=== PATIENT | female | born 2000 | race African-American/Black ===

== ENCOUNTER 2020-07-08 07:29 | Emergency (ER) | payer OTHER ==
[~2020-07-08] VITALS: Ht 162.6 cm; Wt 72.3 kg
[2020-07-08 08:04] VITALS: BP 122/84
[2020-07-08] MEDS ORDERED: LORazepam 2 MG TAB PO PRN (08:10)
== END 2020-07-08 09:58 | disposition home or self-care (01) ==
LOC: EDBD 07:29 → M ED 07:29
DX: F43.20 Adjustment disorder, unspecified (principal); Z77.098 Contact with and (suspected) exposure to other hazardous, chiefly nonmedicinal, chemicals

== ENCOUNTER → 2020-08-20 | Outpatient (REF) | payer OTHER ==
[2020-08-20 19:25] LABS: CHLAMYDIA DNA AMPLIFICATION NEGATIVE (NEGATIVE); GC DNA AMPLIFICATION NEGATIVE (NEGATIVE)
[2020-08-21 10:17] LABS: APPEARANCE, URINE CLEAR (CLEAR); BACTERIA, URINE AUTO NEGATIVE (NEGATIVE); BILIRUBIN, URINE AUTO NEGATIVE (NEGATIVE); BLOOD, URINE BLOOD 1+ (NEGATIVE); COLOR, URINE YELLOW (YELLOW); GLUCOSE, URINE (UA) AUTO NEGATIVE (NEGATIVE); KETONE, URINE AUTO TRACE mg/dL (NEGATIVE); LEUKOCYTE ESTERASE, URINE AUTO TRACE (NEGATIVE); NITRITE, URINE AUTO NEGATIVE (NEGATIVE); PROTEIN, URINE AUTO NEGATIVE (NEGATIVE); RBC, URINE AUTO 0 /HPF (0-3); SPECIFIC GRAVITY URINE AUTO 1.012 (1.002-1.035); SQUAMOUS EPITHELIAL CELL UR AU 2 /HPF (0-6); UROBILINOGEN, URINE AUTO 0.2 mg/dL (0.0-2.0); WBC, URINE AUTO 1 /HPF (0-3)
== END ==
LOC: M LAB REF 16:24
PROVIDERS: ATTEND Physician Assistant Medical
DX: N89.8 Other specified noninflammatory disorders of vagina (principal)

== ENCOUNTER 2020-11-20 20:35 | Inpatient (IN) | payer OTHER ==
[~2020-11-20] VITALS: Ht 162.6 cm; Wt 67.4 kg
[2020-11-20 22:19] LABS: HEMATOCRIT 39.2 % (36.0-47.0); HEMOGLOBIN 13.8 g/dl (12.0-15.5); MEAN CORPUSCULAR HEMOGLOBIN 31.6 pg (27.0-33.0); MEAN CORPUSCULAR HGB CONC 35.2 g/dl (32.0-36.5); MEAN CORPUSCULAR VOLUME 89.7 fl (80.0-96.0); PLATELET COUNT, AUTOMATED 196 10^3/uL (150-450); RED BLOOD COUNT 4.37 10^6/uL (4.00-5.40)
[2020-11-20 22:54] LABS: HCG, SERUM QUALITATIVE NEGATIVE (NEGATIVE)
[2020-11-20 23:01] LABS: AMPHETAMINES LEVEL URINE NEGATIVE (NEGATIVE); BARBITURATES URINE NEGATIVE (NEGATIVE); BENZODIAZEPINES URINE NEGATIVE (NEGATIVE); CANNABINOIDS URINE NEGATIVE (NEGATIVE); COCAINE METABOLITE URINE NEGATIVE (NEGATIVE); METHADONE URINE NEGATIVE (NEGATIVE); OPIATES URINE NEGATIVE (NEGATIVE); PHENCYCLIDINE URINE NEGATIVE (NEGATIVE)
[2020-11-20 23:11] LABS: ACETAMINOPHEN LEVEL < 2.0 UG/ML (10.0-30.0); ALBUMIN 4.2 GM/DL (3.2-5.2); ALT/SGPT 21 U/L (12-78); BILIRUBIN,DIRECT 0.3 MG/DL (0.0-0.2); BLOOD UREA NITROGEN 10 MG/DL (7-18); CALCIUM LEVEL 9.5 MG/DL (8.5-10.1); CARBON DIOXIDE LEVEL 25 MEQ/L (21-32); CHLORIDE LEVEL 106 MEQ/L (98-107); CREATININE FOR GFR 0.92 MG/DL (0.55-1.30); ETHYL ALCOHOL (ETHANOL) < 0.003 % (0.000-0.010); GLOMERULAR FILTRATION RATE > 60.0 (>60); GLUCOSE, FASTING 91 MG/DL (70-100); POTASSIUM SERUM 4.4 MEQ/L (3.5-5.1); SALICYLATE LEVEL < 1.7 MG/DL (5.0-30.0); SODIUM LEVEL 138 MEQ/L (136-145); TOTAL PROTEIN 8.1 GM/DL (6.4-8.2)
[2020-11-21 05:51] LABS: RSV AMPLIFICATION NEGATIVE (NEGATIVE)
[2020-11-21] MEDS ORDERED: HOME MED LIST COMPLETE! XX SCH (10:05)
[2020-11-21] MEDS ORDERED: MOM 30ML SUSPENSION UDC PO PRN (11:25)
[2020-11-21] MEDS ORDERED: LORazepam 1 MG TAB PO PRN (11:25)
[2020-11-21] MEDS ORDERED: MAALOX 30 ML SUSP *UDC PO PRN (11:25)
[2020-11-21 12:25] VITALS: BP 120/78
[2020-11-22 06:39] VITALS: BP 145/65
[2020-11-22] MEDS ORDERED: INFLUENZA QUADRIVALENT PF VACCINE 0.5ML SYRINGE IM ONE (09:00)
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
[2020-11-22 19:05] VITALS: BP 133/84
[2020-11-22] MEDS: traZODone 50 MG TAB PO PRN (21:20)
[2020-11-23 06:45] VITALS: BP 95/54
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
[2020-11-23 18:29] VITALS: BP 110/76
[2020-11-24] MEDS: ACETAMINOPHEN TAB 650MG DOSE (2X325MG) PO PRN ×2 (00:01→07:51)
[2020-11-24 06:00] VITALS: BP 112/68
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
[2020-11-24 19:14] VITALS: BP 145/85
[2020-11-25] MEDS: ACETAMINOPHEN TAB 650MG DOSE (2X325MG) PO PRN ×2 (00:06→20:30)
--- NOTE | 2020-11-25 10:12 | CR.PDOC ---
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 CODE STATUS: Full code PAST MEDICAL HISTORY: No past medical history Per medical record past psychiatric history of ADD, major depressive disorder, borderline personality PAST SURGICAL HISTORY: x1 SOCIAL HISTORY: She reports that she "vapes all day". She does not smoke tobacco cigarettes on occasion. She reports that she used to do cannabis and did acid at one point in the past, but it has been over 1 year since her most recent use. FAMILY HISTORY: Mother has type 1 diabetes Father has schizophrenia REVIEW OF SYSTEMS: She reports that she is feeling perfectly healthy, did not have any illness prior to her admission. The remainder of her review of systems is negative. PHYSICAL EXAMINATION: General: Awake, alert, oriented x3. She is actually quite talkative Respiratory: Clear to auscultation bilaterally with no wheezes, rales, or rhonchi. Cardiovascular: Regular rate and rhythm, with no rubs, gallops, or murmur. ASSESSMENT/PLAN: Psychiatric issues Suicidal ideations -Per management from the psychiatric team She does not have any other acute or chronic medical issues at this time. She reports that she typically does not take any home medications. Please consult our service again if anything arises. Thank you so very much. Vital Signs/I&O Vital Signs Date Time Temp Pulse Resp B/P (MAP) Pulse Ox O2 Delivery O2 Flow Rate FiO2 11/24/20 19:14 98.5 74 16 145/85 (105) 11/24/20 06:00 99 11/23/20 06:45 Room Air Allergies Coded Allergies: No Known Drug Allergies (Verified Allergy, Unknown, 07/08/20) Home Medications Unable to Obtain Active Prescriptions or Reported Meds VEE BAEZA DO Nov 25, 2020 10:12
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
[2020-11-25 18:56] VITALS: BP 108/52
[2020-11-25] MEDS: traZODone 50 MG TAB PO PRN (20:29)
[2020-11-26 06:23] VITALS: BP 103/58
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
[2020-11-26 16:30] VITALS: BP 127/77
[2020-11-26] MEDS: traZODone 50 MG TAB PO PRN (21:03)
[2020-11-26] MEDS: ACETAMINOPHEN TAB 650MG DOSE (2X325MG) PO PRN (21:04)
[2020-11-27 05:44] VITALS: BP 98/69
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
[2020-11-27 16:15] VITALS: BP 121/58
[2020-11-27] MEDS: ACETAMINOPHEN TAB 650MG DOSE (2X325MG) PO PRN (17:59)
[2020-11-27] MEDS: traZODone 50 MG TAB PO PRN (20:18)
[2020-11-27] MEDS ORDERED: SERTRALINE HCL 25 MG TABLET PO ONE (21:00)
[2020-11-28 06:40] VITALS: BP 112/56
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
[2020-11-28 16:25] VITALS: BP 120/78
[2020-11-28] MEDS: SERTRALINE HCL 50 MG TAB PO SCH (20:21)
[2020-11-28] MEDS: traZODone 50 MG TAB PO PRN (20:21)
[2020-11-28] MEDS: ACETAMINOPHEN TAB 650MG DOSE (2X325MG) PO PRN (20:21)
[2020-11-29 07:15] VITALS: BP 139/70
[2020-11-29 16:00] VITALS: BP 112/56
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
[2020-11-29] MEDS: traZODone 50 MG TAB PO PRN (20:12)
[2020-11-29] MEDS: SERTRALINE HCL 50 MG TAB PO SCH (20:12)
[2020-11-29] MEDS: ACETAMINOPHEN TAB 650MG DOSE (2X325MG) PO PRN (20:13)
[2020-11-30 06:25] VITALS: BP 118/59
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
[2020-11-30] MEDS: ACETAMINOPHEN TAB 650MG DOSE (2X325MG) PO PRN ×2 (13:09→19:25)
[2020-11-30 16:18] VITALS: BP 119/77
[2020-11-30] MEDS: traZODone 50 MG TAB PO PRN (20:36)
[2020-11-30] MEDS: SERTRALINE HCL 50 MG TAB PO SCH (20:36)
[2020-12-01 06:23] VITALS: BP 124/60
[2020-12-01] MEDS: ACETAMINOPHEN TAB 650MG DOSE (2X325MG) PO PRN (13:39)
[2020-12-01 16:35] VITALS: BP 104/58
[2020-12-01] MEDS: SERTRALINE HCL 50 MG TAB PO SCH (19:51)
[2020-12-01] MEDS: traZODone 50 MG TAB PO PRN (21:12)
[2020-12-02 06:00] VITALS: BP 102/72
[2020-12-02 16:49] VITALS: BP 111/78
[2020-12-02] MEDS: traZODone 50 MG TAB PO PRN (21:06)
[2020-12-02] MEDS: SERTRALINE HCL 50 MG TAB PO SCH (21:06)
[2020-12-03 07:15] VITALS: BP 90/56
[2020-12-03] MEDS ORDERED: hydrOXYzine 50 MG TAB PO PRN (08:15)
[2020-12-03] MEDS ORDERED: HYDR50TA70 PO (08:32)
[2020-12-03] MEDS ORDERED: SERT50TA29 PO (08:32)
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
[2020-12-03 17:51] VITALS: BP 114/71
[2020-12-03] MEDS: SERTRALINE HCL 50 MG TAB PO SCH (20:25)
[2020-12-04 06:00] VITALS: BP 118/60
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
== END 2020-12-04 12:15 | disposition home or self-care (01) | DRG 880 ==
LOC: M ED 20:35 → M ED INP 11-21 11:21 → M PSY 11-21 12:30
PROVIDERS: ADMIT Student in an Organized Health Care Education/Training Program; ATTEND Psychiatry & Neurology Psychiatry
DX: F43.0 Acute stress reaction (principal); R45.851 Suicidal ideations; F98.8 Other specified behavioral and emotional disorders with onset usually occurring in childhood and adolescence; F60.3 Borderline personality disorder; Z91.410 Personal history of adult physical and sexual abuse; F17.290 Nicotine dependence, other tobacco product, uncomplicated; Z56.4 Discord with boss and workmates; Z63.8 Other specified problems related to primary support group

== ENCOUNTER 2020-12-09 12:55 | Inpatient (IN) | payer OTHER ==
[~2020-12-09] VITALS: Ht 162.6 cm; Wt 66.1 kg
[~2020-12-09 12:55] MED LIST: HYDR50TA70 PO; SERT50TA29 PO
[2020-12-09 13:10] LABS: ABG BASE EXCESS -2.8 (-2.0-2.0); ABG HCO3 20.5 MEQ/L (22.0-26.0); ABG O2 SATURATION 97.5 % (95.0-99.0); ABG PARTIAL PRESSURE CO2 31.6 mmHg (35.0-45.0); ABG PARTIAL PRESSURE O2 103.5 mmHg (75.0-100.0); ABG STANDARD HCO3 22.1 MEQ/L (22.0-26.0); ABG TOTAL CO2 21.5 MEQ/L (22.0-29.0)
[2020-12-09 13:16] LABS: HEMATOCRIT 36.8 % (36.0-47.0); HEMOGLOBIN 12.8 g/dl (12.0-15.5); MEAN CORPUSCULAR HEMOGLOBIN 31.4 pg (27.0-33.0); MEAN CORPUSCULAR HGB CONC 34.8 g/dl (32.0-36.5); MEAN CORPUSCULAR VOLUME 90.4 fl (80.0-96.0); PLATELET COUNT, AUTOMATED 171 10^3/uL (150-450); RED BLOOD COUNT 4.07 10^6/uL (4.00-5.40); WHITE BLOOD COUNT 6.1 10^3/uL (4.0-10.0)
[2020-12-09 14:00] LABS: AMPHETAMINES LEVEL URINE NEGATIVE (NEGATIVE); BARBITURATES URINE NEGATIVE (NEGATIVE); BENZODIAZEPINES URINE NEGATIVE (NEGATIVE); CANNABINOIDS URINE NEGATIVE (NEGATIVE); COCAINE METABOLITE URINE NEGATIVE (NEGATIVE); METHADONE URINE NEGATIVE (NEGATIVE); OPIATES URINE NEGATIVE (NEGATIVE); PHENCYCLIDINE URINE NEGATIVE (NEGATIVE)
[2020-12-09 14:01] LABS: ACETAMINOPHEN LEVEL < 2.0 UG/ML (10.0-30.0); ALBUMIN 3.8 GM/DL (3.2-5.2); ALT/SGPT 23 U/L (12-78); BILIRUBIN,DIRECT 0.3 MG/DL (0.0-0.2); BILIRUBIN,TOTAL 1.3 MG/DL (0.2-1.0); BLOOD UREA NITROGEN 12 MG/DL (7-18); CALCIUM LEVEL 8.6 MG/DL (8.5-10.1); CARBON DIOXIDE LEVEL 28 MEQ/L (21-32); CHLORIDE LEVEL 108 MEQ/L (98-107); ETHYL ALCOHOL (ETHANOL) < 0.003 % (0.000-0.010); GLOMERULAR FILTRATION RATE > 60.0 (>60); GLUCOSE, FASTING 78 MG/DL (70-100); POTASSIUM SERUM 3.6 MEQ/L (3.5-5.1); SALICYLATE LEVEL < 1.7 MG/DL (5.0-30.0); SODIUM LEVEL 142 MEQ/L (136-145); THYROID STIMULATING HORMONE 0.993 uIU/ML (0.358-3.740); TOTAL PROTEIN 7.2 GM/DL (6.4-8.2)
[2020-12-09] MEDS ORDERED: diphenhydrAMINE 50MG/ML VIAL (J1200) IM ONE (14:05)
[2020-12-09] MEDS ORDERED: LORazepam 2 MG/ML VIAL IM ONE (14:05)
[2020-12-09] MEDS ORDERED: HALOPERIDOL 5MG/ML VIAL (J1630 PER 1) IM ONE (14:05)
[2020-12-10 15:00] VITALS: BP 141/86
[2020-12-10 15:02] LABS: RSV AMPLIFICATION NEGATIVE (NEGATIVE)
[2020-12-10] MEDS ORDERED: MAALOX 30 ML SUSP *UDC PO PRN (15:30)
[2020-12-10] MEDS ORDERED: MOM 30ML SUSPENSION UDC PO PRN (15:30)
[2020-12-10] MEDS ORDERED: ACETAMINOPHEN TAB 650MG DOSE (2X325MG) PO PRN (15:30)
[2020-12-10] MEDS ORDERED: SERT50TA29 PO (16:46)
[2020-12-10] MEDS ORDERED: HYDR50TA70 PO (16:46)
[2020-12-10] MEDS ORDERED: HOME MED LIST COMPLETE! XX SCH (16:50)
[2020-12-10] MEDS ORDERED: diphenhydrAMINE 50MG CAP PO ONE (19:15)
[2020-12-10] MEDS: hydrOXYzine 50 MG TAB PO PRN (19:37)
[2020-12-10] MEDS: SERTRALINE HCL 50 MG TAB PO SCH (19:37)
[2020-12-10 19:50] VITALS: BP 148/91
[2020-12-10] MEDS ORDERED: OLANZapine ORAL DISINTEGRATING TAB 5MG PO ONE (21:00)
[2020-12-10 23:23] LABS: BASO % 0.3 % (0.0-1.0); EOS # 0.2 10^3/uL (0.0-0.5); HEMATOCRIT 35.3 % (36.0-47.0); HEMOGLOBIN 12.3 g/dl (12.0-15.5); LYMPH # 2.8 10^3/uL (1.5-5.0); LYMPH % 36.4 % (24.0-44.0); MEAN CORPUSCULAR HEMOGLOBIN 31.5 pg (27.0-33.0); MEAN CORPUSCULAR HGB CONC 34.8 g/dl (32.0-36.5); MEAN CORPUSCULAR VOLUME 90.5 fl (80.0-96.0); MONO # 0.8 10^3/uL (0.0-0.8); MONO % 10.9 % (2.0-8.0); NEUTROPHILS # 3.7 10^3/uL (1.5-8.5); PLATELET COUNT, AUTOMATED 177 10^3/uL (150-450); WHITE BLOOD COUNT 7.6 10^3/uL (4.0-10.0)
[2020-12-10 23:46] LABS: ALBUMIN 3.3 GM/DL (3.2-5.2); ALT/SGPT 23 U/L (12-78); BILIRUBIN,TOTAL 0.8 MG/DL (0.2-1.0); BLOOD UREA NITROGEN 13 MG/DL (7-18); CALCIUM LEVEL 8.6 MG/DL (8.5-10.1); CARBON DIOXIDE LEVEL 26 MEQ/L (21-32); CHLORIDE LEVEL 108 MEQ/L (98-107); CPK CREATINE PHOSPHOKINASE 447 U/L (26-192); GLOMERULAR FILTRATION RATE > 60.0 (>60); GLUCOSE, FASTING 121 MG/DL (70-100); POTASSIUM SERUM 3.3 MEQ/L (3.5-5.1); SODIUM LEVEL 140 MEQ/L (136-145); TOTAL PROTEIN 6.6 GM/DL (6.4-8.2)
[2020-12-11] MEDS ORDERED: POTASSIUM CHLORIDE 10MEQ SR TABLET PO ONE (06:20)
[2020-12-11] MEDS ORDERED: CETIRIZINE (ZyrTEC) 10 MG TAB PO ONE (07:55)
[2020-12-11] MEDS ORDERED: MONTELUKAST 10 MG TAB PO ONE (07:55)
[2020-12-11] MEDS ORDERED: FLUTICASONE PROP 0.05% NASAL SPRAY 16 GM (FLONASE) NARES ONE (09:00)
[2020-12-11 11:10] LABS: PROLACTIN 28.4 NG/ML
[2020-12-11 11:51] LABS: MAGNESIUM LEVEL 1.9 MG/DL (1.8-2.4)
[2020-12-11] MEDS ORDERED: LORazepam 1 MG TAB PO ONE (12:15)
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
--- NOTE | 2020-12-11 14:38 | HPEPDOC ---
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 She c/o congestion, runny nose w/o fever, chills, sore throat. She denies any h/a, chest pain, pressure, n/v/abd pain/ diarrhea, and has a slight cough w scant sputum. She has h/o ADD, acute stress d/o , history of cutting, borderline personality d/o, marijuana use, "acid" about a year ago. 10 point ROS otherwise negative PAST MEDICAL HISTORY: h/o ADD, acute stress d/o , history of cutting, borderline personality d/o. PAST SURGICAL HISTORY: none SOCIAL HISTORY: vapes, marijuana and acid 1year ago, no etoh. 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 FAMILY HISTORY: Father: schizophrenia Mother:type 1 DM ALLERGIES: Please see below. REVIEW OF SYSTEMS: 10 point ROS negative aside from +finding son HPI HOME MEDICATIONS: Please see below. PHYSICAL EXAMINATION: VITAL SIGNS: see below GENERAL APPEARANCE: no distress. HEENT: no sinus tenderness. no cervical LAD CARDIOVASCULAR: S1S2 RRR LUNGS: CTAB ABDOMEN: +bs soft nt nd EXTREMITIES: neg edema LABORATORY DATA: See below. MICROBIOLOGY: Please see below. ASSESSMENT: 20 y/o AA female admitted for strange behavior c/o nasal congestion. URI/ Allergic Rhinitis-prn flonase, zyrtec, montelukast. will monitor for fevers. ADD, borderline personality d/o, h/o cutting, h/o acute stress d/o: per primary team Hospitalist will sign off. Vital Signs Vital Signs Date Time Temp Pulse Resp B/P (MAP) Pulse Ox O2 Delivery O2 Flow Rate FiO2 12/10/20 19:50 97.7 88 18 148/91 (110) 98 Room Air Laboratory Data Labs 24H Laboratory Tests 2 12/10/20 22:25: Immature Granulocyte % (Auto) 0.4, Neutrophils (%) (Auto) 49.0, Lymphocytes (%) (Auto) 36.4, Monocytes (%) (Auto) 10.9H, Eosinophils (%) (Auto) 3.0, Basophils (%) (Auto) 0.3, Neutrophils # (Auto) 3.7, Lymphocytes # (Auto) 2.8, Monocytes # (Auto) 0.8, Eosinophils # (Auto) 0.2, Basophils # (Auto) 0.0, Nucleated Red Blood Cells % (auto) 0.0, Anion Gap 6L, Glomerular Filtration Rate > 60.0, Calcium Level 8.6, Magnesium Level 1.9, Total Bilirubin 0.8, Aspartate Amino Transf (AST/SGOT) 26, Alanine Aminotransferase (ALT/SGPT) 23, Alkaline Phosphatase 64, Total Creatine Kinase 447H, Total Protein 6.6, Albumin 3.3, Albumin/Globulin Ratio 1.0L, Prolactin 28.4 CBC/BMP Laboratory Tests 12/10/20 22:25 Home Medications Scheduled Sertraline HCl (Sertraline HCl) 50 Mg Tablet, 50 MG PO QHS for . Scheduled PRN Hydroxyzine HCl (Hydroxyzine HCl) 50 Mg Tablet, 50 MG PO QHS PRN for ANXIETY Allergies Coded Allergies: No Known Drug Allergies (Verified Allergy, Unknown, 07/08/20) A-FIB/CHADSVASC A-FIB History Current/History of A-Fib/PAF?: No Current PO Anticoag Therapy: No Age/Risk Factor Scoring CHADSVASC: CHADSVASC Response (Comments) Value Age Risk Factor Age < 65 years old 0 Gender Risk Factor Female 1 Hx of CHF No 0 Hx of HTN No 0 Hx of Stroke/TIA/or VTE No 0 Hx of Diabetes No 0 Hx of Vascular Disease No 0 Total 1 Treatment Treatment ordered: NONE MAGALIE PARRY MD Dec 11, 2020 14:38
[2020-12-11] MEDS: hydrOXYzine 50 MG TAB PO PRN (20:02)
[2020-12-11] MEDS: SERTRALINE HCL 50 MG TAB PO SCH (20:02)
[2020-12-11] MEDS: FLUTICASONE PROP 0.05% NASAL SPRAY 16 GM (FLONASE) NARES SCH (21:51)
[2020-12-12] MEDS: OLANZapine ORAL DISINTEGRATING TAB 5MG PO PRN ×2 (02:30→09:13)
[2020-12-12] MEDS: CETIRIZINE (ZyrTEC) 10 MG TAB PO SCH (08:29)
[2020-12-12] MEDS: FLUTICASONE PROP 0.05% NASAL SPRAY 16 GM (FLONASE) NARES SCH ×2 (08:29→20:05)
[2020-12-12] MEDS: MONTELUKAST 10 MG TAB PO SCH (08:29)
[2020-12-12] MEDS ORDERED: FLUTICASONE PROP 0.05% NASAL SPRAY 16 GM (FLONASE) NARES SCH (09:00)
--- NOTE | 2020-12-12 16:03 | MHIPNPDOC ---
[facility] Progress Note Progress Note DATE OF SERVICE: 12/12/20 HISTORY: Patient is a 20 -year-old , female, who was recently discharged from this unit (/06/2020). On her last admission patient had reported that she was depressed and dealing with a lot of work and family issues. On this occasion she was brought in by the MPs for having bizarre behaviors and was screaming, agitated, and aggressive. Similarly to her last admission patient was selectively mute which is her presentation today. Her communication will was all done on paper as she is preferring to write her answers. When asked what would help her with this hospitalization she states that she "Wants to have fresh air." Patient's diagnosis on her last admission was acute stress disorder,ADD, and borderline personality disorder. Per ED report Pt is a 20 AD female who was brought in by MPs after someone called them stating that she was face down in the barracks screaming and was agitated. Pt refused to answer any of the MPs or her GRACIELA's questions. [facility] contacted [facility] and stated that informed him that pt had left bathtub half full, but had not been in it, there was signs of vomit in room (of a purple color that would suggest EOTH intake of wine), but pt had no EOTH in system. Upon arrival to [facility] pt was reported agitated and aggressive and was restrained both mechanically and chemically. MHE conducted @ 1:15 am on 12/10/20 - Pt was lethargic and refused to answer most questions but TW was able to get pt to answer that she was suicidal, struggles with anxiety and depression and that she does not remember any of the incident that brought her here. It was reported to TW that pt will walk up to random soldiers and stare at them and not say anything. Pt stated "Yes" when asked if she remembered this occurrences but would not answer any further questions. Pt was just discharged from [facility] 12/05/20 for similar behaviors. Pt refused to answer any other questions. VITAL SIGNS: See below. NEW TEST RESULTS: None CURRENT MEDICATIONS: See below. MENTAL STATUS EXAMINATION: Patient is a 20 -year-old , female, who was recently discharged from this unit (/06/2020). On this occasion she was brought in by the MPs for having bizarre behaviors. Pt was lethargic and refused to answer most questions but TW was able to get pt to answer that she was suicidal, struggles with anxiety and depression Speech: Is selectively mute, preferring to write everything Language skills are intact Thought processes including: linear and goal oriented Thought content: denies depression and anxiety. Denies suicidal/homicidal ideation, planning or intent. Abstract reasoning, and computation: fair Description of associations: denies, none observed Description of abnormal or psychotic thoughts: denies, none observed. Judgment: fair Insight: fair Orientation: alert and oriented to person, place, time and situation Recent and remote memory: intact Attention span and concentration: good Language: expansive Fund of knowledge: average Mood: Euthymic Mood Affect: reactive DIAGNOSES: Unspecified depressive disorder acute stress disorder Attention deficit disorder history borderline personality disorder ASSESSMENT: Patient again is selectively mute again today with provider, although has been observed talking to peers verbally. She is attending groups, has not voiced suicidal or homicidal ideations. She has not been aggressive, angry or agitated. Denies depression or anxiety. Reports that she has been asleep most of the day, taking her medications. When asked about what is bothering her today she writes Just thinking about being restrained in the ED it was very scary Reviewed with patient that she was aggressive and agitated when she arrived on scene and that her presentation was very dangerous. She rolled her eyes. States that she became angry and aggressive when MPs brought her to the ED because she didnt want to be brought back to [facility] because people were touching her. States that she wants to be here. But she is ready to be discharged. Denies that she is needing further hospitalization and stated that she is ready for [facility] [employer] to pick her up. MANAGEMENT PLAN: Discharge to [facility] tomorrow TIME SPENT: 25 minutes. Vital Signs Vital Signs Date Time Temp Pulse Resp B/P (MAP) Pulse Ox O2 Delivery O2 Flow Rate FiO2 12/12/20 09:21 Room Air 12/10/20 19:50 97.7 88 18 148/91 (110) 98 Current Medications Current Medications Medications (Trade) Dose Ordered Sig/[place] Route PRN Reason Start Time Stop Time Status Last Admin Dose Admin Acetaminophen (Tylenol Tab) 650 mg Q6HP PRN PO HEADACHE or MILD DISCOMFORT 12/10/20 15:30 Al Hydrox/Mg Hydrox/Simethicone (Mylanta) 30 ml Q4HP PRN PO HEARTBURN/INDIGESTION 12/10/20 15:30 Cetirizine HCl (ZyrTEC) 10 mg DAILY PO 12/12/20 09:00 12/12/20 08:29 Fluticasone Propionate (Flonase 0.05% Nasal [place]) 1 SPRAY IN EACH NOSTRIL BID NARES 12/11/21 21:00 12/11/20 21:31 DC Fluticasone Propionate (Flonase 0.05% Nasal [place]) 1 spray BID NARES 12/11/20 21:00 12/12/20 08:29 Fluticasone Propionate (Flonase 0.05% Nasal [place]) 1 spray BID NARES 12/12/20 09:00 12/11/20 21:16 DC Home Med (Home Med List Complete!) ASDIRECTED XX 12/10/20 16:50 12/10/20 17:19 DC Hydroxyzine HCl (Atarax) 50 mg QHSP PRN PO INSOMNIA 12/10/20 15:30 12/11/20 20:02 Magnesium Hydroxide (Milk Of Magnesia) 30 ml DAILYPRN PRN PO CONSTIPATION 12/10/20 15:30 Montelukast Sodium (Singulair) 10 mg QAM PO 12/12/20 09:00 12/12/20 08:29 Olanzapine (ZyPREXA ZYDIS) 5 mg Q6HP PRN PO AGITATION 12/11/20 14:05 12/12/20 09:13 Sertraline HCl (Zoloft) 50 mg QHS PO 12/10/20 21:00 12/11/20 20:02 Allergies Coded Allergies: No Known Drug Allergies (Verified Allergy, Unknown, 07/08/20) RAMU KHAN NP Dec 12, 2020 14:49
[2020-12-12] MEDS ORDERED: CETI10TA PO (16:06)
[2020-12-12] MEDS ORDERED: MONT10TA10 PO (16:06)
[2020-12-12] MEDS ORDERED: FLUTISP NARES (16:06)
[2020-12-12 16:22] VITALS: BP 150/83
[2020-12-12] MEDS: SERTRALINE HCL 50 MG TAB PO SCH (20:05)
[2020-12-12] MEDS: hydrOXYzine 50 MG TAB PO PRN (20:06)
[2020-12-12] MEDS ORDERED: MIRTAZAPINE 7.5MG PER 1/2 TABLET PO PRN (21:25)
[2020-12-13] MEDS: OLANZapine ORAL DISINTEGRATING TAB 5MG PO PRN (01:36)
[2020-12-13 07:46] VITALS: BP 136/80
[2020-12-13] MEDS: FLUTICASONE PROP 0.05% NASAL SPRAY 16 GM (FLONASE) NARES SCH (09:43)
[2020-12-13] MEDS: MONTELUKAST 10 MG TAB PO SCH (09:43)
[2020-12-13] MEDS: CETIRIZINE (ZyrTEC) 10 MG TAB PO SCH (09:43)
--- NOTE | 2020-12-13 09:48 | MHDSPDOC ---
[facility] Discharge Summary Discharge Summary DATE OF ADMISSION: Dec 10, 2020 at 15:27 DATE OF DISCHARGE: December 13, 2020 at 0916 DISCHARGE DIAGNOSES: Unspecified depressive disorder acute stress disorder Attention deficit disorder history borderline personality disorder REASON FOR ADMISSION: Patient is a 20 -year-old , female, who was recently discharged from this unit (/06/2020). On her last admission patient had reported that she was depressed and dealing with a lot of work and family issues. On this occasion she was brought in by the MPs for having bizarre behaviors and was screaming, agitated, and aggressive. Similarly to her last admission patient was selectively mute which is her presentation today. Her communication will was all done on paper as she is preferring to write her answers. When asked what would help her with this hospitalization she states that she "Wants to have fresh air." Patient's diagnosis on her last admission was acute stress disorder,ADD, and borderline personality disorder. Per ED report Pt is a 20 AD female who was brought in by MPs after someone called them stating that she was face down in the barracks screaming and was agitated. Pt refused to answer any of the MPs or her GRACIELA's questions. GR[facility]A contacted [facility] and stated that informed him that pt had left bathtub half full, but had not been in it, there was signs of vomit in room (of a purple color that would suggest EOTH intake of wine), but pt had no EOTH in system. Upon arrival to [facility] pt was reported agitated and aggressive and was restrained both mechanically and chemically. MHE conducted @ 1:15 am on 12/10/20 - Pt was lethargic and refused to answer most questions but TW was able to get pt to answer that she was suicidal, struggles with anxiety and depression and that she does not remember any of the incident that brought her here. It was reported to TW that pt will walk up to random soldiers and stare at them and not say anything. Pt stated "Yes" when asked if she remembered this occurrences but would not answer any further questions. Pt was just discharged from [facility] 12/05/20 for similar behaviors. Pt refused to answer any other questions. VITAL SIGNS: See below. CONSULTANTS INVOLVED: See Medical H + P by Hospitalist TREATMENT AND PROGRESS ON THE UNIT: Patient was admitted to the [facility] on a 9.39 legal status was afforded the following treatment modalities: 1) Individual Therapy 2) Group Therapy 3) Medication Management 4) Milieu Therapy 5) Safe Environment HOSPITAL COURSE: Patient was admitted to [facility] on a 39 legal status. Pt was admitted for bizarre behavior and reportedly made a suicidal statement. On arrival to ED pt was aggressive, violent and was mechanically restrained for violent behavior. Pt. was given emergency medication for aggression and agitation. She was resumed on home medications. She was selectively mute with staff, but was observed communicating with peers and spoke freely in group settings. Pt stated she "has had privacy invaded, and does not like to be touched" and therefore reacted violently in the ED. Stated "was okay with coming to [facility], and doesn't mind it here." Pt was vague when discussing reason for being admitted, "I just didn't feel right." Pt found medications beneficial and tolerated them well. Mood, anxiety, and intrusive thoughts improved with treatment. Pt attended groups daily during stay. Her symptoms improved with treatment. On day of discharge pt. denied depression, anxiety, insomnia, SI/HI, hallucinations, delusions. Pt was discharged home with [facility] of command follow- up with [facility]. Pt felt safe for discharge. DISCHARGE ASSESSMENT: In today's interview, patient is alert and oriented, pt.s dress is appropriate. Hygiene and grooming is well-kempt. Smiles on approach and is pleasant and engaged in the interview. Denies depression and anxiety. Denies suicidal and homicidal ideation, planning or intent. Denies and is not observed with swati, psychotic symptoms of delusions, bizarre thinking, obsessions, paranoia, ruminations illogical thoughts, flight of ideas or having poor insight and judgement. Reinforced with patient need to abstain from alcohol and drugs. At discharge patient has normal mentation, declines further hospitalization on a voluntary status and meets criteria for discharge today. Discussed indications of medications, potential benefits and risks, alternatives (including no treatment) and questions were encouraged and answered. Patient encouraged to return to hospital if symptoms worsen or change and encouraged to call unit if he/she/they needs to speak to provider for questions regarding medications or care. MENTAL STATUS EXAMINATION ON DISCHARGE: Patient is a 20 -year-old , female who was admitted for bizarre behavior and reportedly made a suicidal statement. Hygiene and grooming is well kempt, appropriately dressed. She maintained good eye contact and was pleasant and cooperative. Speech: Is fluid, conversant, normal rate, tone and volume Language skills are intact Thought processes including: linear and goal oriented Thought content: reduced depression and anxiety. Denies suicidal/homicidal ideation, planning or intent. Abstract reasoning, and computation: good Description of associations: denies, none observed Description of abnormal or psychotic thoughts: denies, none observed. Judgment: fair Insight: fair Orientation: alert and oriented to person, place, time and situation Recent and remote memory: intact Attention span and concentration: good Language: expansive Fund of knowledge: average Mood: Euthymic Mood Affect: reactive Suicide Risk Assessment: 1) Does the patient wish to be ? No 2) Since your admission, have you had any actual thought of killing yourself? No 3) Since your admission, have you been thinking about how you might do this? No 4) Since your admission, have you had these thoughts and had some intention of acting on them? No 5) Since your admission, have you started to work out or worked out the details of how to kill yourself? No 5A) Do you intent to carry out this plan? No and NA 6) Have you ever done anything, started anything, or prepared to do anything with any intent to ? No 6A) How long since your admission did you do any of these? NA MEDICATIONS ON DISCHARGE: See Medication Reconciliation PLAN/FOLLOWUP ARRANGEMENTS: Pt was discharged home with [facility] follow-up with [facility]. The amount of time spent in the coordination of care for this patient was approximately 25 minutes. ETOH/Disorder Med Rx ETOH/DRUG DISORDER RX: N/A Vital Signs/I&Os Vital Signs Date Time Temp Pulse Resp B/P (MAP) Pulse Ox O2 Delivery O2 Flow Rate FiO2 12/13/20 07:46 97.2 90 20 136/80 (98) 99 Room Air Medications Scheduled Cetirizine HCl (Cetirizine HCl) 10 Mg Tablet, 10 MG PO DAILY for Allergies, #7 Fluticasone Propionate (Fluticasone Propionate) 16 Gm Keo.susp, 1 SPRAY NARES BID for allergies, #1 Montelukast Sodium (Montelukast Sodium) 10 Mg Tablet, 10 MG PO QAM for Allergies, #7 Sertraline HCl (Sertraline HCl) 50 Mg Tablet, 50 MG PO QHS for ., (Reported) Scheduled PRN Hydroxyzine HCl (Hydroxyzine HCl) 50 Mg Tablet, 50 MG PO QHS PRN for ANXIETY, (Reported) Allergies Coded Allergies: No Known Drug Allergies (Verified Allergy, Unknown, 07/08/20) RAMU KHAN NP Dec 13, 2020 09:48
[2021-12-11] MEDS ORDERED: FLUTICASONE PROP 0.05% NASAL SPRAY 16 GM (FLONASE) NARES SCH (21:00)
== END 2020-12-13 12:30 | disposition home or self-care (01) | DRG 881 ==
LOC: M ED 12:55 → M ED INP 12-10 15:27 → M PSY 12-10 16:35
PROVIDERS: ADMIT Student in an Organized Health Care Education/Training Program; ATTEND Psychiatry & Neurology Psychiatry
DX: F32.9 Major depressive disorder, single episode, unspecified (principal); F43.9 Reaction to severe stress, unspecified; F90.9 Attention-deficit hyperactivity disorder, unspecified type; F60.3 Borderline personality disorder; Z91.410 Personal history of adult physical and sexual abuse; Z91.52 Personal history of nonsuicidal self-harm; Z79.899 Other long term (current) drug therapy; Z81.8 Family history of other mental and behavioral disorders

== ENCOUNTER 2020-12-25 19:41 | Inpatient (IN) | payer OTHER ==
[~2020-12-25] VITALS: Ht 162.6 cm; Wt 69.3 kg
[~2020-12-25 19:41] MED LIST changes: +CETI10TA PO; +FLUTISP NARES; +MONT10TA10 PO
--- OUTSIDE RECORDS SUMMARY | 2020-12-25 19:48 | CCD ---
Author Author [facility] Organization [facility] Address Unknown Phone Unavailable Care Team Providers Care Associate Program Manager Name Role Phone AMRIK, F TOBY DO Unavailable Unavailable AMRIK, F TOBY DO Unavailable Unavailable AMRIK, F TOBY DO Unavailable Unavailable AMRIK, F TOBY DO Unavailable Unavailable AMRIK, F TOBY DO Unavailable Unavailable AMRIK, F TOBY DO Unavailable Unavailable AMRIK, F TOBY DO Unavailable Unavailable AMRIK, F TOBY DO Unavailable Unavailable AMRIK, F TOBY DO Unavailable Unavailable AMRIK, F TOBY DO Unavailable Unavailable AMRIK, F TOBY DO Unavailable Unavailable AMRIK, F TOBY DO Unavailable Unavailable AMRIK, F TOBY DO Unavailable Unavailable AMRIK, F TOBY DO Unavailable Unavailable AMRIK, F TOBY DO Unavailable Unavailable AMRIK, F TOBY DO Unavailable Unavailable AMRIK, F TOBY DO Unavailable Unavailable AMRIK, F TOBY DO Unavailable Unavailable AMRIK, F TOBY DO Unavailable Unavailable AMRIK, F TOBY DO Unavailable Unavailable AMRIK, F TOBY DO Unavailable Unavailable AMRIK, F TOBY DO Unavailable Unavailable AMRIK, F TOBY DO Unavailable Unavailable AMRIK, F TOBY DO Unavailable Unavailable AMRIK, F TOBY DO Unavailable Unavailable AMRIK, F TOBY DO Unavailable Unavailable AMRIK, F TOBY DO Unavailable Unavailable AMRIK, F TOBY DO Unavailable Unavailable AMRIK, F TOBY DO Unavailable Unavailable AMRIK, F TOBY DO Unavailable Unavailable AMRIK, F TOBY DO Unavailable Unavailable AMRIK, F TOBY DO Unavailable Unavailable AMRIK, F TOBY DO Unavailable Unavailable AMRIK, F TOBY DO Unavailable Unavailable Elliot Elise MD Unavailable Unavailable Elliot Elise MD Unavailable Unavailable Elliot Elise MD Unavailable Unavailable Elliot Elise MD Unavailable Unavailable Elliot Elise MD Unavailable Unavailable Elliot Elise MD Unavailable Unavailable TURRIN, NALINI Unavailable Unavailable TURRIN, NALINI Unavailable Unavailable TURRIN, NALINI Unavailable Unavailable TURRIN, NALINI Unavailable Unavailable NON, PHYSICIAN STAFF Unavailable Unavailable Re-disclosure Warning The records that you are about to access may contain information from federally-assisted alcohol or drug abuse programs. If such information is present, then the following federally mandated warning applies: This information has been disclosed to you from records protected by federal confidentiality rules (42 CFR part 2). The federal rules prohibit you from making any further disclosure of this information unless further disclosure is expressly permitted by the written consent of the person to whom it pertains or as otherwise permitted by 42 CFR part 2. A general authorization for the release of medical or other information is NOT sufficient for this purpose. The Federal rules restrict any use of the information to criminally investigate or prosecute any alcohol or drug abuse patient.The records that you are about to access may contain highly sensitive health information, the redisclosure of which is protected by Article 27-F of the [facility] Public Health law. If you continue you may have access to information: Regarding HIV / AIDS; Provided by facilities licensed or operated by the [facility] Office of Mental Health; or Provided by the [facility] Office for People With Developmental Disabilities. If such information is present, then the following [facility] mandated warning applies: This information has been disclosed to you from confidential records which are protected by state law. State law prohibits you from making any further disclosure of this information without the specific written consent of the person to whom it pertains, or as otherwise permitted by law. Any unauthorized further disclosure in violation of state law may result in a fine or longterm sentence or both. A general authorization for the release of medical or other information is NOT sufficient authorization for further disc losure. Encounters Encounter Providers Location Date Indications Data Source(s ) Emergency Attender: TOBY ELIZABETH DOConsultant: STAFF NON 07/07/2020 11:07:00 PM EDT - 07/08/2020 06:56:00 AM EDT [facility] Patient discharged. Emergency Attender: Elliot Elise MDConsultant: STAFF NON 06/27/2020 01:19:00 AM EDT - 06/27/2020 03:27:00 AM EDT [facility] Patient discharged. Emergency Attender: NALINI LANDISConsultant: STAFF NON 05/23/2020 07:02:00 PM EDT - 05/23/2020 07:06:00 PM EDT [facility] Patient discharged. Emergency Attender: Elliot Arik MDConsultant: STAFF NON 05/12/2020 02:24:00 AM EST - 05/12/2020 03:31:00 AM [facility] Patient discharged. Medications No Information Insurance Providers Payer name Policy type / Coverage type Policy ID Covered democrat ID Covered democrat's relationship to tristan Policy Tristan Plan Information [facility] ACTIVE DUTY [id number] SP [id number] [facility] HUMANA - O/P [id number] Problems, Conditions, and Diagnoses Code Display Name Description Problem Type Effective Dates Data Source(s) Y929 [address] or not applicable Unspecified place or not applicable Diagnosis 07/07/2020 11:07:00 PM EDT [facility] [id number] Intentional self-harm by other specified means, initial encounter Intentional self-harm by other specified means, initial encounter Diagnosis 07/07/2020 11:07:00 PM EDT [facility] [id number] CONTACT WITH AND SUSPECTED EXPOSURE TO C OVID-19 CONTACT WITH AND SUSPECTED EXPOSURE TO COVID-19 Diagnosis 07/07/2020 11:07:00 PM EDT [facility] Y906 Blood alcohol level of 120-199 mg/100 ml Blood alcohol level of 120-199 mg/100 ml Diagnosis 07/07/2020 11:07:00 PM EDT [facility] [id number] Laceration without foreign body of left wrist, initial encounter Laceration without foreign body of left wrist, initial encounter Diagnosis 07/07/2020 11:07:00 PM EDT [facility] [id number] Nicotine dependence, other tobacco produ ct, uncomplicated Nicotine dependence, other tobacco product, uncomplicated Diagnosis 07/07 11:07:00 PM EDT [facility] E12076 Alcohol abuse with intoxication, uncompl icated Alcohol abuse with intoxication, uncomplicated Diagnosis 07/07/2020 11:07:00 PM EDT [facility] 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, single episod e, 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, single episode, severe with psychotic features Diagnosis 07/07/2020 11:07:00 PM EDT [facility] [id number] Suicidal ideations Suicidal ideations Diagnosis 09/2020 11:07:00 PM EDT [facility] F330 Major depressive disorder, recurrent, mi ld Major depressive disorder, recurrent, mild Diagnosis 06/27/2020 01:19:00 AM EDT [facility] F419 Anxiety disorder, unspecified Anxiety disorder, unspec ified Diagnosis 06/27/2020 01:19:00 AM EDT [facility] Z5321 Procedure and treatment not carried out due to patient leaving prior to being seen by health care provider Procedure and treatment not carried out due to patient leaving prior to being seen by health care provider Diagnosis 05/23/2020 07:02:00 PM EDT [facility] F329 Major depressive disorder, single episod e, unspecified Major depressive disorder, single episode, unspecified Diagnosis 05/12/2020 02:24:00 AM [facility] Surgeries/Procedures No Information Results ID Date Data Source [id number] 12/10/2020 01:59:00 PM EDT [facility] Name Value Range Interpretation Code Description Data Lea rce(s) Supporting Document(s) SARS coronavirus 2 RNA [Presence] in Res piratory specimen by CHIN with probe detection NEGATIVE [facility] This lab was ordered by [facility] a nd reported by [facility]. ID Date Data Source [id number] 11/21/2020 04:51:00 AM EDT [facility] Name Value Range Interpretation Code Description Data Lea rce(s) Supporting Document(s) SARS coronavirus 2 RNA [Presence] in Res piratory specimen by CHIN with probe detection NEGATIVE [facility] This lab was ordered by [facility] a nd reported by [facility]. ID Date Data Source [id number] 07/08/2020 01:07:00 PM EDT [facility] [address] [facility] [place] [address] RESPIRATORY CARE REPORT ==== ---------NAME------- NUMBER SEX AGE ADMIT DISC. XRAY# F/C MARK Wetzel [id number] F 07/07/20 07/08/20 [id number] SB4 E/R DATE OF : 2000 M/R# [id number] #: [id number] TR-02 LOCATION: EMERGENCY DEPT EKG 58106 COMP LETE:07/08/20 01:43 AJP 32037 PHYSICIAN: AMRIK ANTOINE Name Value Range Interpretation Code Description Data Lea rce(s) Supporting Document(s) ID Date Data Source [id number] 07/07/2020 11:07:00 PM EDT [facility] 1 OrderSheet [facility] Emergency Department [address] [place] [address] Phone #: ext- [phone] 07/07/2020 22:48 Patient: EDGARDO MANZANO Sex: F : 2000 Age: 20yWEIGHT:68.0 kg (S) HEIGHT:66 inches (S) BMI:24.2ALLERGIES: No Known Drug AllergyCHIEF COMPLAINT: depressed, anxious, self injury, thoughts, suicidal:, homicidal thoughts, agitated, angryDIAGNOSIS: Depressive disorder, Suicidal behavior, Alcohol intoxicationLAB ORDERSOrder Description Priority Entered Acknowledged InitialedCBC w Diff STAT 23:04 07/07/2020 23:15 Toby Gonsalez Physician;CMP STAT 23:04 07/07/2020 23:15 Toby Gonsalez Physician;ETOH STAT 23:04 07/07/2020 23:15 Toby Gonsalez Physician;TSH STAT 23:04 07/07/2020 23:15 Toby Gonsalez Physician;Urinalysis (Clean STAT 23:04 07/07/2020 23:15 Sunshine,Catch) Toby Malik Physician;Urine Drug Screen STAT 23:04 07/07/2020 23:15 Toby Gonsalez Physician;Beta-HCG, Qual STAT 23:04 07/07/2020 23:15 Sunshine,Urine Toby Malik Physician;Acetaminophen STAT 23:04 07/07/2020 23:15 Sunshine,Level Toby Malik Physician;Salicylate Level STAT 23:04 07/07/2020 23:15 Toby Gonsalez Physician;COVID-19 CAH STAT 23:48 07/07/2020 Ack'd: 00:31 03:38 07/08/2020(Symptomatic as Toby Elizabeth 07/08/2020 Yan Gonsalez LauraDefined by [facility]) Physician; King Starks(07/07/2020) (First 2 OrderSheet [facility] Emergency Department [address] [place] [address] Phone #: ext- [phone] 07/07/2020 22:48 Patient: EDGARDO MANZANO Sex: F : 2000 Age: 20yTest) (Hospitalized)(Not ) (NotResident inCongregate CareSetting) (NotEmployed inHealthcare Setting)ETOH STAT 03:33 07/08/2020 03:38 Toby Heredia R.N. Physician;DIAGNOSTIC STUDY ORDERSOrder Description Priority Entered Acknowledged InitialedMEDICATION/IV/DRIP/FLUID ORDERSOrder Description Priority Entered Acknowledged InitialedAcetaminophen PO 03:27 07/08/2020 03:38 Yan,650 mg (NOW x1) Ivory Heredia R.N. RMilagroNMilagro; Verbal order per; Toby Elizabeth PhysicianAcetaminophen PO 06:48 07/08/2020 06:50 Bisjennifer,650 mg (NOW) Toby Malik Physician;GENERAL ORDERSOrder Description Priority Entered Acknowledged InitialedEKG 23:04 07/07/2020 23:15 Toby Gonsalez Physician;Transfer: ([facility]) 06:40 07/08/2020 06:44 Toby Heredia R.N. Physician;[Electronically signed by Toby Elizabeth (06:50 07/08/2020 )][Electronically signed by Ivory Heredia R.N. (06:56 07/08/2020)][Electronically locked by Ivory Heredia R.N. (06:56 07/08/2020)] Name Value Range Interpretation Code Description Data Lea rce(s) Supporting Document(s) ID Date Data Source [id number] 07/07/2020 11:07:00 PM EDT [facility] 1 Medication Reconciliation Report [facility] Emergency Department [address] [place] [address] Phone #: ext- [phone] 07/07/2020 22:48 Patient: EDGARDO MANZANO Sex: F : 2000 Age: 20yWeight: 68.0 kgHeight/Length: 66 in.BMI: 24.2ALLERGIES: No Known Drug AllergyThe patient's Home Medications are listed below:NONE.The source(s) of the original Home Medication information:Not obtained.The following Medications were given to the patient in the Emergency Department:Acetaminophen [PO] PO 650 mg, administered: 03:38 07/08/2020cetaminophen [PO] PO 650 mg, administered: 06:50 07/08/2020The following Medications were prescribed to the patient:None. Name Value Range Interpretation Code Description Data Lea rce(s) Supporting Document(s) ID Date Data Source [id number] 07/07/2020 11:07:00 PM EDT [facility] 1 Medication Administration Record [facility] Emergency Department [address] [place] [address] Phone #: ext- [phone] 07/07/2020 22:48 Patient: EDGARDO MANZANO Sex: F : 2000 Age: 20yWeight: 68.0 kgHeight/Length: 66 inBMI: 24.2ALLERGIES: No Known Drug Allergy Date/Time Medication Administered Medication OrderedGiven ACETAMINOPHEN [PO] Acetaminophen PO 650 mg (NOW03:38 07/08/2020 Dose: 650 mg PO x1)Ivory Heredia R.N.Given ACETAMINOPHEN [PO] Acetaminophen PO 650 mg (NOW)06:50 07/08/2020 Dose: 650 mg Tablets King Navarro, Name Value Range Interpretation Code Description Data Lea rce(s) Supporting Document(s) ID Date Data Source [id number] 07/07/2020 11:07:00 PM EDT [facility] 1 General Instructions [facility] Emergency Department [address] [place] [address] Phone #: ext- [phone] 07/07/2020 22:48 Patient: EDGARDO MANZANO Sex: F : 2000 Age: 20ySuicidal ideation.Single episode of severe major depressive disorder with psychosis, suicidal ideation and suicidal attempt.Uncomplicated alcohol intoxication.No alcohol intoxication with delirium or alcohol dependence.INSTRUCTIONS(Woll go by Police custody).(Electronically signed by Toby Elizabeth, Physician 07/08/2020 06:50) Name Value Range Interpretation Code Description Data Lae rce(s) Supporting Document(s) ID Date Data Source [id number] 07/07/2020 11:07:00 PM EDT [facility] 1 Clinical Report - Nurses [facility] Emergency Department [address] [place] [address] Phone #: ext- [phone] 07/07/2020 22:48 Patient: EDGARDO MANZANO Sex: F : 2000 Age: 20yTRIAGEArrived by private vehicle. Historian: patient. ( Patient states SI/HI, emotional distress due to personalstress.).Acuity: LEVEL 2.Chief Complaint: DEPRESSION and SUICIDAL THOUGHTS and THOUGHTS OF HARMING SELF andHOMICIDAL THOUGHTS.Alert. No acute distress.Onset: today.Treatment SAS PROGRAMMER:None.SEPSIS SCREEN: SIRS SCREEN NEGATIVE. SEPSIS SCREEN NEGATIVE. No suspected or confirmedsigns of infection present. --22:54 07/07/20 King Gonsalez22:48 07/07/20. BP: 150/76 taken on the right arm, via an automated monitor, while sitting. MAP: 100.HR: 115 (regular, tachycardic and strong). RR: 16 (regular, unlabored and normal). O2 saturation: 99% onroom air. Temp: 97.8 F (oral). Pain level now: 0/10. --22:54 07/07/20 King Gonsalez.Weight: 68 kg stated. Height/Length: 66 inches Per Patient. BMI: 24.2. --22:47 07/07/20 King Gonsalez.MedicationsNone. --22:52 07/07/20 King Gonsalez.A llergiesNo Known Drug Allergy. --22:52 07/07/20 King Gonsalez.HistorySOCIAL HX: Heavy tobacco smoker (electronic cigarrettes)- 1 pack per day. Occasional alcohol use.(states a little consumtion of etoh tonight). No drug use. The patient was offered HIV testing but declinedand hepatitis C testing but declined. The patient has not traveled outside the [place]Infectious disease exposure: No infectious disease exposure.SELF HARM ASSESSMENT: Self harm assessment was performed. The patient answered "yes" to thequestion(s) "Have you recently felt down, depressed, or hopeless?", "Do you have thoughts of harming orkilling yourself?", "Have you recently had thoughts about harming or killing others?" and "Have you noticedless interest or pleasure in doing things?" and "no" to the question(s) "Do you have a plan for harming orkilling yourself?", "Do you have any dangerous items in your possession?", "Are you here because you 2 Clinical Report - Nurses [facility] Emergency Department [address] [place] [address] Phone #: ext- [phone] 07/07/2020 22:48 Patient: EDGARDO MANZANO Sex: F : 2000 Age: 20y tried to hurt yourself?" and "Have you ever tried to hurt yourself before today?". ABUSE ASSESSMENT: Abuse assessment. Abuse denied. No suspicion of abuse. No report of abuse. NUTRITIONAL RISK ASSESSMENT: The nutritional risk assessment revealed no deficiencies. FUNCTIONAL ASSESSMENT: Functional assessment: no impairments noted. LEARNING NEEDS ASSESSMENT: The learning needs assessment revealed no barriers. FALL RISK ASSESSMENT: Fall risk assessment completed. No risk factors identified. SKIN INTEGRITY ASSESSMENT: Skin integrity risk assessment completed. No skin integrity risk identified. --22:54 07/07/20 King Gonsalez. FAMILY HX: Negative. --23:02 07/07/20 Toby Elizabeth, Physician. Interventions Identification band on patient. To treatment room. --22:54 07/07/20 King Gonsalez.PHYSICAL ASSESSMENTAmbulatory to room.GENERAL / NEURO / PSYCH: Alert. Oriented X 4. Appears in no acute distress. Speech within normallimits. Affect appears normal. Patient appears calm and cooperative. Good eye contact. Patientappears well-nourished and neat and clean.RESPIRATORY: Respirations not labored. Breath sounds within normal limits.CVS: Capillary refill less than 2 seconds.GI / : Abdomen soft and nontender. Bowel sounds within normal limits.SKIN: Skin intact. Skin is warm and dry. Skin color is within normal limits. --22:56 07/07/20 King Gonsalez.NURSING PROGRESS NOTESBed placed in lowest position. Brakes of bed on. --22:56 07/07/20 King Gonsalez late entry - 22:44 07/07/20. ( Patient placed on 1:1 CO for safety at this time.). --23:01 07/07/20 Ivory Heredia R.N. Monitoring of patient in place. Patient gowned. Head of bed elevated. Reassurance given. Suicide precautions maintained: a safety sweep of the room has been completed. Room made safe and stripped of hazardous items. Continuous one on one supervision, nurse at bedside, clothing / valuables removed and placed at the nurse's station. Patient placed in direct sight of the nurse's station. ED Physician has been notified. Two patient identifiers checked. Call light placed in reach. Side rails up x 2. Bed placed in lowest position. Brakes of bed on. --23:02 07/07/20 Ivory Heredia R.N. 3 Clinical Report - Nurses [facility] Emergency Department [address] [place] [address] Phone #: ext- [phone] 07/07/2020 22:48 Patient: EDGARDO MANZANO Sex: F : 2000 Age: 20yEKG time: (late entry - 23:14 07/07/2020). EKG was performed by a nurse and shown to the EDphysician. --23:17 07/07/20 Ivory Heredia R.N.( Patient stating she wants to go home now. Pt stating she is frustrated because she was drinking alcoholand this happens after every time she drinks. Pt stating she was talking to staff now and feels better andwants to go home. MD Elizabeth made aware and is at bedside.). --00:14 07/08/20 Ivory Heredia R.N.( Late note d/t pt care. Pt requesting to use bathroom. Nursing Drag Sawyer with pt for 1:1. Pt had lockedherself in bathroom refusing to come out. Unsuccessful attempt at redirecting pt to go back into room andgive phone to staff. Pt also pulled out vape stating she wanted to vape. Pt educated on policy at hospitalthat she is not allowed to have phone or vape on her. Pt started to record staff while locking herself inbathroom. Pt educated that she cannot have phone or be recording staff. Pt not cooperative, MD Ayoub aware. PD and MP called at that time. At time of PD arrival attempted to get pt calm and cooperativewith no success. Pt stated that all staff are "white and they are treating me like this because I'm black". Ptwent outside for fresh air with PD. At that time pt's chain of command arrived and are at pt's side. Pt blew a0.11 BAL by PD. Pt was able to come back inside and sit on bed and gave her phone and vape to staff. Ptchain of command is at bedside with pt at this time. Pt still talking back to staff at this time but is able to beredirectable at this time.). --01:39 07/08/20 Ivory Heredia R.N.( 11pm-0145: nurses note: This young lady arrived at approximately 11pm stating she was struggling withthe idea of cutting her wrists. Initially she was calm and cooperative and talking about how everyone wasfailing to help her. As the night progressed she asked the doctor if she could go out and "vape", he gaveher permission and she was escorted out to the parking lot. Eventually she returned to the ED and asked togo into the bathroom. Approximately 15 minutes later she refused to talk to us through the door and weentered concerned for her safety .She refused to come off of the toilet and give up her phone. The localpolice were called for assistance. The police were notified and are now at the bedside and she hasreturned with a member from [place] back into the bathroom. She was given a field test for alcohol bythe police but she is currently still at 1.1. As the night has progressed she has become difficult to redirect.At this moment she is in the bathroom with an assigned soldier. We continue to await medical clearance fortransfer to [facility].). --01:59 07/08/20 Mora Gilbert, RN03:25 07/08/20. BP: 119/82. MAP: 94. HR: 95. RR: 16. O2 saturation: 99% on room air. Pain level now:07/09. --03:26 07/08/20 Ivory Heredia RMilagroN.03:38 07/08/2020 Acetaminophen PO 650 mg given. Allergies verified and confirmed 5 rights. Informationreviewed with patient. Verbalizes understanding. --03:38 07/08/20 Ivory Heredia RMilagroN.The patient is calm and resting quietly. ( Patient remains resting on stretcher at this time, pt's commanderis at bedside with pt. Awaiting to hear back from [facility] to see if she will be accepting for psych unit.).--05:07 07/08/20 Ivory Heredia R.N.The patient is calm and resting quietly. ( Patient walked outside with commander for "fresh air". MDPalumbo okay with pt going outside with commander. Pt remains visible in outside camera. Pt walked backin onto stretcher with commander, remains calm and quiet. Awaiting to hear back from [facility] at this time.). 4 Clinical Report - Nurses [facility] Emergency Department [address] [place] [address] Phone #: ext- [phone] 07/07/2020 22:48 Patient: EDGARDO MANZANO Sex: F : 2000 Age: 20y --05:50 07/08/20 Ivory Heredia R.N. 05:47 07/08/20. BP: 115/84. MAP: 94. HR: 91. RR: 16. O2 saturation: 100% on room air. Pain level now: 04/11. --05:50 07/08/20 Ivory Heredia R.N. ( Patient ran out of room screaming at staff stating "what are you doing. I came here to get help and I've just been sitting here". Pt pacing to other room and hitting hands together. Pt's commander attempted to calm pt down, pt then yelling in his face stating "you haven't been helping me, I came to you for help with evidence and nothing has been done". Pt yelling and in tears. Pt redirected back into room and given emotional support. Pt able to calm down enough to get back into room. Pt continues to be in tears, talking to 2nd commander in her room at this time. PD has been called, awaiting for their arrival. Attempting to get [facility] to accept pt with PD as pt is unsafe to go with ambulance at this time.). --06:28 07/08/20 Ivory Heredia R.N. ( Pt running up to staff stating "I will punch your fucking face". Pt then ran into another room into the corner yelling "I just want to , no one is listening to me". Pt attempted to be redirected. PD able to calm pt down and talking with her quietly and pt back into room speaking with PD and commander remains at bedside.). --06:41 07/08/20 Ivory Heredia R.N. 06:50 07/08/2020 Acetaminophen PO Tablets 650 mg given. Allergies verified and confirmed 5 rights. Information reviewed with patient including reason for taking this medication, signs of allergic reaction and precautions. Verbalizes understanding. --06:50 07/08/20 King Gonsalez.DISPOSITION / DISCHARGE Transferred to [facility]. Visit overview, summary of care (CCDA), Emtala forms and Face Sheet provided. Transported via (Pt being transfered to [facility] with PD). Report was given to a nurse via a phone call. Report included information regarding patient's care, treatment, allergies and condition including: recent changes and anticipated changes, current vital signs and abnormal labs. Report included treatment information regarding medications given or pending. All questions were answered. Report was acknowledged and care was transferred. (GURPREET Leija at [facility]). Patient's personal items include, PD took valuables with pt to be transfered to [facility]. --06:55 07/08/20 Ivory Heredia R.N. 06:52 07/08/20. BP: unable to obtain due to patient condition. HR: unable to obtain due to patient condition. RR: unable to obtain due to patient condition. O2 saturation: unable to obtain due to patient condition. Temp: unable to obtain due to patient condition. Pain level now unable to obtain due to patient condition. --06:55 07/08/20 Ivory Heredia R.N. Departure time: 06:56 07/08/2020. --06:56 07/08/20 Ivory Heredia R.N.Locked/Released at 07/08/2020 06:56 by Ivory Heredia R.N. 5 Clinical Report - Nurses [facility] Emergency Department [address] [place] [address] Phone #: ext- [phone] 07/07/2020 22:48 Patient: EDGARDO MANZANO Sex: Rashard : 2000 Age: 20y Name Value Range Interpretation Code Description Data Lea rce(s) Supporting Document(s) ID Date Data Source [id number] 0001 07/07/2020 11:07:00 PM EDT [facility] 1 Clinical Report - Physicians/Mid Levels [facility] Emergency Department [address] [place] [address] Phone #: ext- [phone] 07/07/2020 22:48 Patient: EDGARDO MANZANO Sex: F : 2000 Age: 20y Time Seen: 22:59 07/07/2020. Arrived- By private vehicle. Not in custody. Historian- patient. Disposition decision: 06:39 07/08/2020.HISTORY OF PRESENT ILLNESS Chief Complaint: ANXIOUS, DEPRESSED, SELF INJURY and SUICIDAL THOUGHTS and AGITATED, ANGRY and HOMICIDAL THOUGHTS. This started today. The patient has experienced situational problems and exhibited a behavior change. but was not found wandering and is compliant with medication. No recent drug use. Recent alcohol consumption. Has been depressed but eating or sleeping and had suicidal thoughts. She has had anxiety. No anger, unusual behavior, paranoia, delusions or hallucinations. She inflicted self-injury. The symptoms are described as moderate. Location- left wrist.REVIEW OF SYSTEMSDenies current . No headache, dizziness, weakness, chest pain or palpitations. No abdominalpain, vomiting, diarrhea, black stools or numbness. No fever, sore throat, cough, difficulty breathing orskin rash. No enlarged lymph nodes, joint pain, weight loss or laceration. All other systems reviewed andare negative.PAST HISTORYSee nurses notes.SOCIAL HISTORYSmoker- current status unknown (vaping). Alcohol use; consumes liquor drinks daily. [employer].FAMILY HISTORYNegative.ADDITIONAL NOTESThe nursing notes have been reviewed with agreement regarding the chief complaint, HPI, ROS, PMH andpatient medications and allergies.PHYSICAL EXAMVital Signs: 07/07/2020 22:48 BP: sitting 150/76. MAP: 100. HR: 115. RR: 16. O2 saturation: 99% onroom air. Temp: 97.8 F. Pain level now: 0/10. Have been reviewed as abnormal. Hypertensive.Tachycardic. Respiratory rate normal. Temperature normal. Oxygen saturation nor mal.Appearance: Alert. Appearance is normal. Patient is in mild distress.Eyes: Pupils equal, round and reactive to light.Neck: Normal inspection. Neck supple.CVS: Normal heart rate and rhythm. Heart sounds normal. 2 Clinical Report - Physicians/Mid [facility] Emergency Department [address] [place] [address] Phone #: ext- [phone] 07/07/2020 22:48 Patient: EDGARDO MANZANO Sex: F : 2000 Age: 20y Respiratory: Painless inspiration. Breath sounds normal. Chest nontender. Abdomen: Soft and nontender. Back: No tenderness. Skin: Skin warm and dry. Normal skin color. Normal skin turgor. Extremities: Extremities exhibit normal ROM. No lower extremity edema. (superficial laceration volar wrists.left). Psych / Neuro: Oriented X 3. Mood and affect normal. Appears depressed. Speech normal. Cognition normal. Thought process and content normal. Insight and judgement normal. Cranial nerves normal (as tested). No cerebellar findings. No motor deficit. No sensory deficit. Reflexes normal.LABS, X-RAYS, AND EKGEKG: Normal EKG. Normal sinus rhythm. Normal OK interval. Normal QRS complexes. Normal STs and Twaves. No ectopy.Laboratory Tests: Laboratory tests have been ordered, with results reviewed and considered in themedical decision making process. COVID-19 CAH: (CUONG: 07/08/2020 03:31) ( AkgRcvd 07/08/2020 04:02) Final results Test Result Flag Units (Reference) COVID-19 NOT DETECTED COVID-19 REENTER NOT DETECTED { PROCEDURAL CONTROL VALID KIT LOT # _[id number] 07/08/20.401.AB . . . KIT EXP DATE _060521 07/08/20.AB . . . NORMAL RANGE IS NOT DETECTEDNEGATIVE RESULTS SHOULD BE TREATED PRESUMPTIVE AND, IF INCONSISTENT WITHCLINICAL SIGNS AND SYMPTOMS OR NECESSARY FOR PATIENT MANAGEMENT, SHOULD BETESTED WITH DIFFERENT AUTHORIZED OR CLEARED MOLECULAR TESTS. NEGATIVE RESULTSDO NOT PRECLUDE SARS-CoV-2 INFECTION AND SHOULD NOT BE USED THE SOLE BASISFOR PATIENT MANAGEMENT DECISIONS. CBC w Diff: (CUONG: 07/07/2020 23:10) ( [facility] cvd 07/07/2020 23:26) Final results Test Result Flag Units (Reference) CBC W/AUTOMATED DIFF COMPLETE BLOOD COUNT WBC 9.0 10/uL (4.2 - 11.0) RBC 4.66 10/uL (4.20 - 5.40) HEMOGLOBIN 14.7 g/dL (12.0 - 16.0) HEMATOCRIT 41.7 % (37.0 - 47.0) MCV 89.5 fL (81.0 - 101) MCH 31.5 pg (27.0 - 34.0) MCHC 35.3 g/dL (31.0 - 36.0) RDW 12.5 % (11.5 - 14.5) PLATELETS 206 10/uL (150 - 450) MPV 10.9 H fL (7.4 - 10.4) NEUT 42.6 % (37.0 - 80.0) LYMPH 42.4 H % (25.0 - 40.0) MONO 9.0 H % (3.0 - 8.0) EOS 4.8 % (0.0 - 7.0) BASO 0.6 % (0.0 - 2.5) %IG 0.6 H % (0.0 - 0.0) %NRBC 0.0 % (0.0 - 0.0) #NEUT 3.87 10/uL (2.00 - 6.90) #LYMPH 3.83 H 10/uL (0.60 - 3.40) #MONO 0.81 10/uL (0.00 - 0.90) #EOS 0.43 10/uL (0.00 - 0.70) #BASO 0.05 10/uL (0.00 - 0.20) 3 Clinical Report - Physicians/Mid Levels [facility] Emergency Department [address] [place] [address] Phone #: ext- [phone] 07/07/2020 22:48 Patient: EDGARDO MANZANO Sex: F : 2000 Age: 20y #IG 0.05 10/uL (0.00 - 0.10) #NRBC 0.00 10/uL (0.00 - 0.00) MANUAL DIFF NOT INDICATED RBC MORPH NOT INDICATEDCMP: (CUONG: 07/07/2020 23:10) ( MsgRcvd 07/07/2020 23:41) Final results Test Result Flag Units (Reference) COMPREHENSIVE METABOLIC PANEL COMPREHENSIVE METABOLIC PANEL SODIUM 137 mEq/L (134 - 153) POTASSIUM 3.5 L mEq/L (3.6 - 5.0) CHLORIDE 107 mEq/L (98 - 107) CO2 18 L MEQ/L (22 - 30) GLUCOSE 116 H MG/DL (70 - 99) BUN 12 MG/DL (7 - 21) CREATININE 0.9 MG/DL (0.7 - 1.5) BUN/CREAT 13 (8 - 27) TOTAL PROTEIN 7.7 G/DL (6.3 - 8.2) ALBUMIN 4.6 G/DL (3.9 - 5.0) GLOBULIN 3.1 GM/DL (2.4 - 3.2) A/G RATIO 1.5 (0.8 - 2.0) CALCIUM 9.4 MG/DL (8.4 - 10.2) TOTAL BILI <0.7 MG/DL (0.2 - 1.3) ALKALINE PHOS 60 U/L (38 - 126) SGOT/AST 23 U/L (5 - 40) SGPT/ALT 14 U/L (7 - 56) ANION GAP 12.0 mmol/L (8.0 - 16.0) AGE 20 yrs NON- AA GFR >60 mL/min AFR AMER GFR >60 mL/min Male GFR Interprentation 20-49 yrs >60 mL/min Pcysxr08-28 yrs >56 mL/min Normal 60- 69 yrs >49 mL/min Normal 70-79yrs>42 mL/min Normal 80 and above >35 mL/min Normal Female GFRInterpretation 20-39 yrs >60 mL/min Normal 40-49 yrs >58 mL/minNormal 50-59 yrs >51 mL/min Normal 60-69 yrs >45 mL/min Ybxuym62-83 yrs >39 mL/min Normal 80 and above >32 mL/min NormalETOH: (CUONG: 07/07/2020 23:10) ( [facility] 07[facility]07[facility] 23:42) Final results Test Result Flag Units (Reference) ALCOHOL 194.0 MG/DL ALCOHOL % 0.19 H % (0.00 - 0.01) *FOR MEDICAL PURPOSES ONLY*TSH: (CUONG: 07/07/2020 23:10) ( AkgRcvd 07/07/2020 23:47) Final results Test Result Flag Units (Reference) TSH 1.42 uIU/mL (0.47 - 5.01)Urinalysis: (CUONG: 07/07/2020 23:10) ( [facility] 07/07/2020 23:37) Final results Test Result Flag Units (Reference) URINALYSIS URINALYSIS SOURCE Clean Catch COLOR yellow (NORMAL: Yello CLARITY clear (NORMAL: Clear 4 Clinical Report - Physicians/Mid Levels [facility] Emergency Department [address] [place] [address] Phone #: ext- [phone] 07/07/2020 22:48 Patient: EDGARDO MANZANO Sex: F : 2000 Age: 20y SPEC GRAVITY 1.010 (1.001 - 1.030 pH 6.5 (5 - 9) GLUCOSE NORM (NORMAL: Negat BILIRUBIN NEG (NORMAL: Negat KETONE NEG (NORMAL: Negat PROTEIN NEG (NORMAL: Negat NITRITE NEG (NORMAL: Negat BLOOD NEG (NORMAL: Negat LEUK EST 500 A ( NORMAL: Negat UROBILINOGEN NOR (less than 1.0 MICROSCOPIC See Below WBC 5 - 7 A (NORMAL: NONE RBC 0 - 1 (NORMAL: NONE EPITHELIAL FEW (NORMAL: NONE BACTERIA Trace (NORMAL: NONE Drug Screen-Urine: (CUONG: 07/07/2020 23:10) ( MsgRcvd 07/07/2020 23:41) Final results Test Result Flag Units (Reference) DRUG SCREEN URINE URINE DRUG SCREEN AMPHETAMINES NEGATIVE (NORMAL: NEGAT BARBITURATES NEGATIVE (NORMAL: NEGAT BENZO NEGATIVE (NORMAL: NEGAT COCAINE NEGATIVE (NORMAL: NEGAT THC NEGATIVE (NORMAL: NEGAT OPIATES NEGATIVE (NORMAL: NEGAT PCP NEGATIVE (NORMAL: NEGAT \\BLDo\\URINE DRUG SCREEN INTERPRETATION\\BLDx\\ THE CUTOFFF LEVELS FOR DETECTION ARE FOLLOWS: AMPHETAMINES 1000 ng/ml BARBITUARATES 200 ng/ml BENZODIAZEPINES 100 ng/ml THC 50 ng/ml PHENCYCLIDINE 25 ng/ml OPIATES 300 ng/ml COCAINE 300 ng/ml ALL POSITIVES ARE CONSIDERED PRESUMPTIVE POSITIVE CONFIRMATION WILL BE PERFORMED AT PHYSICIAN REQUEST. Beta-HCG, Qual Urine: (CUONG: 07/07/2020 23:10) ( MsgRcvd 07/07/2020 23:30) Final results Test Result Flag Units (Reference) HCG URINE QUAL NEGATIVE (NORMAL: NEGAT HCG URINE QL REENTER NEGATIVE (NORMAL: NEGAT { KIT LOT # [id number] ){ KIT EXP DATE 654464 ){ PROCEDURAL CONTROL VALID ) Acetaminophen Level: (CUONG: 07/07/2020 23:10) ( MsgRcvd 07/07/2020 23:37) Final results Test Result Flag Units (Reference) ACETAMINOPHEN <5.0 UG/ML (0.0 - 30.0) Salicylate Level: (CUONG: 07/07/2020 23:10) ( AkgRcvd 07/07/2020 23:42) Final results Test Result Flag Units (Reference) SALICYLATE <0.3 L mg/dL (2.0 - 20.0). 5 Clinical Report - Physicians/Mid Levels [facility] Emergency Department [address] [place] [address] Phone #: ext- [phone] 07/07/2020 22:48 Patient: EDGARDO MANZANO Sex: Rashard : [birth year] Age: 20yPROGRESS AND PROCEDURESCourse of Care: 23:07 Jul 07 2020. (Patient's history obtained and exam completed. treatment plandiscussed and agreed upon. Labs and EKG ordered. Patient agrees with transferred to [facility] for Psych.). 04:22 Jul 08 2020. (EOT at 0330 .08). 06:38 Jul 08 2020. (Patient accepted by dr Mac after report given.). 06:43 Jul 08 2020. (Patient had threatening outburst at staff. Discussed transfer to [facility] with Dr Mac he requests transfer via Police custody.). Disposition: Benefits, risks and alternatives to transfer explained to patient. Transferred to [facility]. Summary of care (CCDA) provided to via paper. 06:38 Jul 08 2020. UTI (catheter associated) was not present prior to transfer. Pressure ulcer was not present prior to transfer. Vascular infection (catheter associated) was not present prior to transfer. Surgical site infection was not present prior to transfer. An object left in surgery was not present prior to transfer. Blood incompatibility was not present prior to transfer. Air embolism was not present prior to transfer. Condition: serious.CLINICAL IMPRESSION Suicidal ideation. 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 Uncomplicated alcohol intoxication.No alcohol intoxication with delirium or alcohol dependence.INSTRUCTIONS (Woll go by Police custody).(Electronically signed by Toby Elizabeth, Physician 07/08/2020 06:50) Name Value Range Interpretation Code Description Data Lea rce(s) Supporting Document(s) ID Date Data Source [id number] 07/08/2020 04:21:00 AM EDT [facility] Name Value Range Interpretation Code Description Data Lea rce(s) Supporting Document(s) Ethanol [Moles/volume] in Blood 76.6 MG/DL [facility] ALCOHOL % 0.08 % 0.00 - 0.01 H [facility] *FOR MEDICAL PURPOSES ONLY * ID Date Data Source [id number] 07/08/2020 03:31:00 AM EDT [facility] Name Value Range Interpretation Code Description Data [facility] rce(s) Supporting Document(s) COVID19 Case rprt NOT DETECTED [facility] This lab was ordered by [facility] and reported by [facility]. ID Date Data Source [id number] 07/08/2020 04:02:00 AM EDT [facility] NOT DETECTEDNOT DETECTED{ PROC EDURAL CONTROL VALID KIT LOT # _[id number] 07/08/20.AB . . . KIT EXP DATE _060521 07/08/20.AB . . . NORMAL RANGE IS NOT DETECTEDNEGATIVE RESULTS SHOULD BE TREATED PRESUMPTIVE AND, IF INCONSISTENT WITHCLINICAL SIGNS AND SYMPTOMS OR NECESSARY FOR PATIENT MANAGEMENT, SHOULD BETESTED WITH DIFFERENT AUTHORIZED OR CLEARED MOLECULAR TESTS. NEGATIVE RESULTSDO NOT PRECLUDE SARS-CoV -2 INFECTION AND SHOULD NOT BE USED THE SOLE BASISFOR PATIENT MANAGEMENT DECISIONS. Name Value Range Interpretation Code Description Data Lea rce(s) Supporting Document(s) ID Date Data Source [id number] 07/12/2020 09:18:00 PM EDT [facility] Name Value Range Interpretation Code Description Data Lea rce(s) Supporting Document(s) CULTURE URINE [facility] _CULTURE URINE_$$[id number]$$[id number]$$[id number]$$[id number]$$[id number]$$[id number]$$[id number]$$[id number]$$[id number]$$ 128121$$221474$$[id number]$$641604$$119945$$766984$$916212$$812846$$625455$$635897$$ 392240$$369840$$626011$$845945$$819908$$291015$$973997$$600355 -- Continued on next page --Patient: JOSE JUAN REYNOSO F Order: [id number] Page 2Culture: CULTURE URINE Status: Final ==== -- Continued on next page --Patient: JOSE JUAN REYNOSO F Order: [id number] Page 2Culture: CULTURE URINE Status: Prelim =====$$[id number]$$[id number] DATE/TIME: 07/12/2020 16:07Culture: CULTURE URINE Status: FinalIsolate 1 Enterococcus faecalis Flag: A . . . . . . .233,697-04,000 colony forming units per mL Previous result entered on 07/11/2020 20:26 ET Microbiological testing to rule out the presence of possible pathogensis in progress.Urine Culture,Comprehensive: [id number] faecalis Flag: AIsolate 2 Escherichia coli Flag: A . . . . . . .110,000-25,000 colony forming units per mLCefazolin <=4 ug/mLCefazolin with an REESE <=16 predicts susceptibility to the oral agentscefaclor, cefdinir, cefpodoxime, cefprozil, cefuroxime, cephalexin,and loracarbef when used for therapy of uncomplicated urinary tractinfections due to E. coli, Klebsiella pneumoniae, and Proteusmirabilis. Previous result entered on 07/11/2020 20:26 ET Microbiological testing to rule out the presence of possible pathogensis in progress.Escherichia coli Flag: APatient: JOSE JUAN Wetzel Order: [id number] Page 3Culture: CULTURE URINE Status: Final ====ISOLATE 1 Enterococcus faecalisISOLATE 2 Escherichia coli Isolate 1 Isolate 2Antibiotic REESE Int REESE IntUnits ug/mL ug/mL Amoxicillin/Clavulanic Acid Ampicillin Cefepime Ceftriaxone Cefuroxime Ciprofloxacin S S Ertapenem Gentamicin Imipenem Levofloxacin S S Meropenem Nitrofurantoin S S Penicillin S S Piperacillin/Tazobactam Tetracycline R R Tobramycin Trimethoprim/Sulfa Vancomycin S S P1 Test performed by: [facility] Karin [facility] #: [id number] [address] [place] [address] [id number] [facility] [id number] Director : Arnol Parmar MD NPI #:Director Of Events : 07/12/20.0733.XMT.SENT REF 07/12/20.2118.XMT.SENT REF ID Date Data Source [id number] 07/07/2020 11:47:00 PM EDT [facility] Name Value Range Interpretation Code Description Data Lea rce(s) Supporting Document(s) Thyrotropin [Units/volume] in Serum or Plasma by Detec tion limit <= 0.05 mIU/L 1.42 uIU/mL 0.47 - 5.01 [facility] ID Date Data Source [id number] 07/07/2020 11:42:00 PM EDT [facility] Value Range Interpretation Code Description Data Lea rce(s) Supporting Document(s) SALICYLATE <0.3 mg/dL 2.0 - 20.0 L [facility] ID Date Data Source [id number] 07/07/2020 11:41:00 PM EDT [facility] Name Value Range Interpretation Code Description Data Lea rce(s) Supporting Document(s) Ethanol [Moles/volume] in Blood 194.0 MG/DL [facility] ALCOHOL % 0.19 % 0.00 - 0.01 H [facility] *FOR MEDICAL PURPOSES ONLY * ID Date Data Source [id number] 07/07/2020 11:41:00 PM EDT [facility] Value Range Interpretation Code Description Data Lea rce(s) Supporting Document(s) COMPREHENSIVE METABOLIC PANEL [facility] COMPREHENSIVE METABOLIC PANEL Sodium [Moles/volume] in Serum or Plasma 137 mEq/L 134 - 153 [facility] Potassium [Moles/volume] in Serum or Plasma 3.5 mEq/L 3.6 - 5.0 L [facility] Chloride [Moles/volume] in Serum or Plasma 107 mEq/L 98 - 107 [facility] Carbon dioxide, total [Moles/volume] in Serum or Plasma 18 MEQ/L 22 - 30 L [facility] Glucose [Mass/volume] in Serum or Plasma 116 MG/DL 70 - 99 H [facility] BUN 12 MG/DL 7 - 21 [facility] al Creatinine [Mass/volume] in Serum or Plasma 0.9 MG/DL 0.7 - 1.5 [facility] BUN/CREAT 13 8 - 27 [facility] al Protein [Mass/volume] in Serum or Plasma 7.7 G/DL 6.3 - 8.2 [facility] Albumin [Mass/volume] in Serum or Plasma 4.6 G/DL 3.9 - 5.0 [facility] Globulin [Mass/volume] in Serum by calculation 3.1 GM/DL 2.4 - 3.2 [facility] A/G RATIO 1.5 0.8 - 2.0 [facility] Calcium [Mass/volume] in Serum or Plasma 9.4 MG/DL 8.4 - 10.2 [facility] Bilirubin.total [Mass/volume] in Serum or Plasma <0.7 MG/DL 0.2 - 1.3 [facility] Alkaline phosphatase [Enzymatic activity/volume] in Serum or Plasma 60 U/L 38 - 126 [facility] Aspartate aminotransferase [Enzymatic activity/volume] in Serum or Plasma 23 U/L 5 - 40 [facility] Alanine aminotransferase [Enzymatic activity/volume] in Seru m or Plasma 14 U/L 7 - 56 [facility] Anion gap 3 in Serum or Plasma 12.0 mmol/L 8.0 - 16.0 [facility] AGE [address] [facility] al NON-AA GFR >60 mL/min [facility] ital AFR AMER GFR >60 mL/min [facility] Male GFR In terprentation 20-49 yrs >60 mL/min Normal 50-59 yrs >56 mL/min Normal 60-69 yrs >49 mL/min Normal 70-79yrs >42 mL/min Normal 80 and above >35 mL/min Normal Female GFR Interpretation 20-39 yrs >60 mL/min Normal 40-49 yrs >58 mL/min Normal 50-59 yrs >51 mL/min Normal 60-69 yrs >45 mL/min Normal 70-79 yrs >39 mL/min Normal 80 and above >32 mL/min Normal ID Date Data Source [id number] 07/07/2020 11:41:00 PM EDT [facility] Name Value Range Interpretation Code Description Data Lea rce(s) Supporting Document(s) DRUG SCREEN URINE [facility] URINE DRUG SCREEN Amphetamine [Presence] in Urine by Screen method NEGATIVE NORMAL: N EGATIVE [facility] BARBITURATES NEGATIVE NORMAL: NEGATIVE [facility] BENZO NEGATIVE NORMAL: NEGATIVE [facility] COCAINE NEGATIVE NORMAL: NEGATIVE [facility] Tetrahydrocannabinol [Presence] in Urine NEGATIVE NORMAL: NEGATIVE [facility] OPIATES NEGATIVE NORMAL: NEGATIVE [facility] Phencyclidine [Presence] in Urine by Screen method NEGATIVE NOR MAL: NEGATIVE [facility] \\BLDo\\URINE DRUG SCR EEN INTERPRETATION\\BLDx\\ THE CUTOFFF LEVELS FOR DETECTION ARE FOLLOWS: AMPHETAMINES 1000 ng/ml BARBITUARATES 200 ng/ml BENZODIAZEPINES 100 ng/ml THC 50 ng/ml PHENCYCLIDINE 25 ng/ml OPIATES 300 ng/ml COCAINE 300 ng/ml ALL POSITIVES ARE CONSIDERED PRESUMPTIVE POSITIVE CONFIRMATION WILL BE PERFORMED AT PHYSICIAN REQUEST. ID Date Data Source [id number] 07/07/2020 11:36:00 PM EDT [facility] Name Value Range Interpretation Code Description Data Lea rce(s) Supporting Document(s) URINALYSIS [facility] URINALYSIS SOURCE Clean Catch [facility] ital COLOR yellow NORMAL: Yellow [facility] CLARITY clear NORMAL: Clear [facility] Specific gravity of Urine by Test strip 1.010 1.001 - 1.030 [facility] pH 6.5 5 - 9 [facility] Glucose [Mass/volume] in Urine by Test strip NORM NORMAL: Negat [facility] Bilirubin.total [Presence] in Urine by Test strip NEG NORMAL: Negative [facility] Ketones [Presence] in Urine by Test strip NEG NORMAL: Negative [facility] Protein [Mass/volume] in Urine by Test strip NEG NORMAL: Negat [facility] Nitrite [Presence] in Urine by Test strip NEG NORMAL: Negative [facility] BLOOD NEG NORMAL: Negative [facility] Leukocyte esterase [Presence] in Urine by Test strip 500 RICH L: Negative [facility] Urobilinogen [Mass/volume] in Urine by Test strip NOR less azul n 1.0 mg/dL [facility] MICROSCOPIC See Below [facility] WBC 5 - 7 NORMAL: NONE SEEN A [facility] Erythrocytes [#/volume] in Urine by Test strip 0 - 1 NORMAL: NON E SEEN [facility] EPITHELIAL FEW NORMAL: NONE SEEN [facility] Bacteria [Presence] in Urine sediment by Light microscopy Tr navi NORMAL: NONE SEEN [facility] ID Date Data Source [id number] 07/07/2020 11:37:00 PM EDT [facility] Name Value Range Interpretation Code Description Data Lea rce(s) Supporting Document(s) Acetaminophen [Presence] in Urine <5.0 UG/ML 0.0 - 30.0 [facility] ID Date Data Source [id number] 07/07/2020 11:29:00 PM EDT [facility] Name Value Range Interpretation Code Description Data Lea rce(s) Supporting Document(s) HCG URINE QUAL NEGATIVE NORMAL: NEGATIVE [facility] HCG URINE QL REENTER NEGATIVE NORMAL: NEGATIVE [facility] { KIT LOT # [id number] ){ KIT EXP DATE 444848 ){ PROCEDURAL CONTROL VALID ) ID Date Data Source [id number] 07/07/2020 11:26:00 PM EDT [facility] Name Value Range Interpretation Code Description Data Lea rce(s) Supporting Document(s) CBC W/AUTOMATED DIFF [facility] COMPLETE BLOOD COUNT Leukocytes [#/volume] in Blood by Automated count 9.0 10^3/uL 4.2 - 1 1.0 [facility] Erythrocytes [#/volume] in Blood by Automated count 4.66 10^6/uL 4. 20 - 5.40 [facility] Hemoglobin [Mass/volume] in Blood 14.7 g/dL 12.0 - 16.0 [facility] Hematocrit [Volume Fraction] of Blood by Automated count 41.7 % 3 7.0 - 47.0 [facility] Erythrocyte mean corpuscular volume [Entitic volume] by Auto mated count 89.5 fL 81.0 - 101 [facility] Erythrocyte mean corpuscular hemoglobin [Entitic mass] by Automated count 31.5 pg 27.0 - 34.0 [facility] Erythrocyte mean corpuscular hemoglobin concentration [Mass/volume] by Automated count 35.3 g/dL 31.0 - 36.0 [facility] Erythrocyte distribution width [Ratio] by Automated count 12.5 % 11.5 - 14.5 [facility] Platelets [#/volume] in Blood by Automated count 206 10^3/uL 150 - 45 0 [facility] Platelet mean volume [Entitic volume] in Blood by Automated count 10.9 fL 7.4 - 10.4 H [facility] Neutrophils/100 leukocytes in Blood by Automated count 42.6 % 37. 0 - 80.0 [facility] Lymphocytes/100 leukocytes in Blood by Manual count 42.4 % 25.0 - 40.0 H [facility] Monocytes/100 leukocytes in Blood by Automated count 9.0 % 3.0 - 8.0 H [facility] Eosinophils/100 leukocytes in Blood by Automated count 4.8 % 0.0 - 7.0 [facility] Basophils/100 leukocytes in Blood by Automated count 0.6 % 0.0 - 2.5 [facility] %IG 0.6 % 0.0 - 0.0 [facility] 0.0 % 0.0 - 0.0 [facility] al Neutrophils [#/volume] in Blood by Automated count 3.87 10^3/uL 2.00 - 6.90 [facility] Lymphocytes [#/volume] in Blood by Automated count 3.83 10^3/uL 0.60 - 3.40 H [facility] Monocytes [#/volume] in Blood by Automated count 0.81 10^3/uL 0.00 - 0.90 [facility] Eosinophils [#/volume] in Blood by Automated count 0.43 10^3/uL 0.00 - 0.70 [facility] Basophils [#/volume] in Blood by Automated count 0.05 10^3/uL 0.00 - 0.20 [facility] #IG 0.05 10^3/uL 0.00 - 0.10 [facility] H ospital #NRBC 0.00 10^3/uL 0.00 - 0.00 [facility] ospital MANUAL DIFF NOT INDICATED [facility] RBC MORPH NOT INDICATED Health System spital ID Date Data Source [id number] 06/27/2020 01:19:00 AM EDT [facility] 1 Medication Reconciliation Report [facility] Emergency Department [address] [place] [address] Phone #: ext [phone] 06/27/2020 01:19 Patient: EDGARDO MANZANO Sex: F : 2000 Age: 20yWeight: 71.2 kgHeight/Length: 64 in.BMI: 27.0ALLERGIES: No Known Drug AllergyThe patient's Home Medications are listed below:THE FOLLOWING MEDICATIONS NEED TO BE RECONCILED: DEPO-Medrol Injection Multivitamins Oral 1 pill, dailyThe source(s) of the original Home Medication information:Not obtained.The following Medications were given to the patient in the Emergency Department:None.The following Medications were prescribed to the patient:None. Name Value Range Interpretation Code Description Data Lea rce(s) Supporting Document(s) ID Date Data Source [id number] 06/27/2020 01:19:00 AM EDT [place] [address] Medication Administration Record [facility] Emergency Department [address] [place] [address] Phone #: ext [phone] 06/27/2020 01:19 Patient: EDGARDO MANZANO Sex: F : 2000 Age: 20yWeight: 71.2 kgHeight/Length: 64 inBMI: 27ALLERGIES: No Known Drug AllergyDate/Time Medication Administered Medication Ordered Name Value Range Interpretation Code Description Data Lea rce(s) Supporting Document(s) ID Date Data Source [id number] 06/27/2020 01:19:00 AM EDT [facility] 1 General Instructions [facility] Emergency Department [address] [place] [address] Phone #: ext- [phone] 06/27/2020 01:19 Patient: EDGARDO MANZANO Sex: F : 2000 Age: 20yMood disorder (mild recurrent major depressive disorder without psychosis)INSTRUCTIONSWarnings: GENERAL WARNINGS: Return or contact your physician immediately if your conditionworsens or changes unexpectedly, if not improving as expected, or if other problems arise.Kaylah ventura of the discharge instructions verbalized by patient.Follow-up with: [facility] Respective Team Cheryl [place], , , [address] [address], , [place], [address] Follow up in two days. Call for an appointment. ADDITIONAL INFORMATIONBipolar DisorderBipolar disorder is an illness that causes strong mood swings between depression and "swati". Itused to be called "manic depression." The mood swings are different from the normal ups and downswe all experience in our lives. They are more severe, last longer, and can interfere with work andrelationships. These episodes are changes from our usual moods and behavior. Their severity can bemild, or drastic and explosive. In a manic episode, you may think fast and do things quickly. It may seem like you are getting a lot done. At first, this may feel very good. But in the extreme this can lead to a lifestyle that is disorganized, chaotic, and includes risky behavior (spending sprees, sexual acting-out, or drug use). In later stages, it may affect eating (no interest in food) and sleeping (unable to sleep for days at a time). Speech may speed up and become difficult for others to understand. You may appear to others as if you are in your own world. In a depressive episode, you may feel a lack of interest in normal activities. Sometimes there is sadness or guilt without any clear reason. Thinking may become slow and there can be a lack energy or feeling of hopelessness. Some people have thoughts of harming themselves at this stage. Thoughts can even turn to suicide.Between these phases you may actually feel OK. This does not mean that the illness is gone. Peoplewith this disorder will usually have to treat it all of their life. Medicine and good care can greatly 2 General Instructions [facility] Emergency Department [address] [place] [address] Phone #: ext- [phone] 06/27/2020 01:19 Patient: EDGARDO MANZANO Sex: F : 2000 Age: 20yreduce the symptoms.The exact cause of this illness is unknown. However, there is a genetic link that makes a person morelikely to get this problem. Also, the use of drugs such as speed (amphetamine) and cocaine increasethe chances of this illness appearing.Home careHere is what you can do at home: Ongoing care and support help people manage this disease. Find a healthcare provider and therapist who meet your needs. Seek help when you feel like you may be heading into either a manic episode or a depressive state. Be sure to take your medicine and get regular blood work to check the levels of medicine in your body. Take the medicine and get the follow-up lab work as prescribed, even if you think you don't need to do it. Be certain to tell each of your healthcare providers about all of the prescription and [id number] medicines, and supplements you take. Certain supplements interact with medicines and result in dangerous side effects. You can also use your pharmacist as a resource person when you have questions about med icine interactions. Talk with your family and trusted friends about your thoughts and feelings. Ask them to help you recognize behavior changes early so you can get help and medicines can be adjusted. Alcohol and drugs can bring on an episode, and make them worse If your life is severely impacted by this illness, the Americans with Disabilities Act (ADA) may provide help. The ADA protects people with chronic physical and mental health problems. If you are having trouble keeping jobs, managing workplace issues, or caring for yourself because of your bipolar disorder, contact your local ADA office to see if it can help. The [employer] operates a toll-free ADA information line at: 515.372.1945 (Voice); or 627-572-1780 (TTY). It can help you locate a local office.Follow-up careFollow up with your healthcare provider or therapist as advised. They can help you to find ways toimprove your life.Call [phone] if any of these happen: You have suicidal thoughts, a plan, and the means to harm yourself, or serious thoughts of hurting someone else 3 General Instructions [facility] Emergency Department [address] [place] [address] Phone #: ext- [phone] 06/27/2020 01:19 Patient: EDGARDO MANZANO Sex: Rashard : 2000 Age: 20y Trouble breathing Confusion Drowsiness or trouble wakening Fainting or loss of consciousness Rapid heart rate, very low heart rate, or a new irregular heart rate Seizure New chest pain that becomes more severe, lasts longer, or spreads into your shoulder, arm, neck, jaw, or backWhen to seek medical adviceCall your healthcare provider right away if any of these happen: Feeling like your symptoms are getting worse (depression, agitation, and excess energy) Unable to eat or sleep for more than 48 hours Feeling out of control (racing thoughts, or poor concentration) Feeling like you want to harm yourself or another Being unable to care for yourself [employer] [address] [place] [address]. All rights reserved. This information is not intended as asubstitute for professional medical care. Always follow your healthcare professional's instructions. You have been given the following additional information: Bipolar Disorder(Electronically signed by Elliot Elise 06/27/2020 03:45) Name Value Range Interpretation Code Description Data Lea rce(s) Supporting Document(s) ID Date Data Source [id number] 06/27/2020 01:19:00 AM EDT [facility] 1 Clinical Report - Nurses [facility] Emergency Department [address] [place] [address] Phone #: ext- [phone] 06/27/2020 01:19 Patient: EDGARDO MANZANO Sex: F : 2000 Age: 20yTRIAGEArrived by private vehicle. Historian: patient. Accompanied by friend. ( Patient states that she has beenfeeling unsafe to be alone right now, having SI thoughts denies any plans. States she was on the phonewith the crisis hotline but was not helping. Hx of depressive disorder with hospitalization in the past year.Has been going to out patient therapy. Also states recent stressors with room mate.).Triage time: 0118. Acuity: LEVEL 3.Alert.Onset: just prior to arrival. She describes feelings of depression.Treatment SAS PROGRAMMER:None. --01:40 06/27/20 Lisa Lee R.N.01:33 06/27/20. BP: 133/99. HR: 80. RR: 16. O2 saturation: 100%. Temp: 97.2 F. Pain level now 0/10.--01:40 06/27/20 Lisa Lee R.N.Chief Complaint: DEPRESSION. --03:53 06/27/20 Lisa Lee R.N.Weight: 71.2 kg. Height/Length: 64 inches. BMI: 27. --01:38 06/27/20 Lisa Lee R.N.MedicationsDEPO-Medrol Injection, started 05-31-2020. --01:36 06/27/20 Lisa Lee R.N. Multivitamins Oral 1 pill, daily. --01:36 06/27/20 Lisa Lee R.N.AllergiesNo Known Drug Allergy. --01:36 06/27/20 Lisa Lee R.N.HistoryPAST MEDICAL HX: Psychiatric illness. Immunizations: up-to-date. Last normal menstrual period was 8weeks ago. Denies current .SOCIAL HX: Never smoker. Alcohol use; consumes beer occa sionally. No drug use. She was offeredHIV testing but declined and hepatitis C testing but declined. She has not traveled outside the [place]Infectious disease exposure: No infectious disease exposure.SELF HARM ASSESSMENT: Self harm assessment was performed. The patient answered "yes" to thequestion(s) "Have you recently felt down, depressed, or hopeless?", "Do you have thoughts of harming orkilling yourself?" and "Have you noticed less interest or pleasure in doing things?" and "no" to thequestion(s) "Do you have a plan for harming or killing yourself?", "Have you recently had thoughts aboutharming or killing others?", "Do you have any dangerous items in your possession?", "Are you herebecause you tried to hurt yourself?" and "Have you ever tried to hurt yourself before today?". The patient 2 Clinical Report - Nurses [facility] Emergency Department [address] [place] [address] Phone #: ext- [phone] 06/27/2020 01:19 Patient: EDGARDO MANZANO Sex: F : 2000 Age: 20y reports their behavior. In the ED the patient has been withdrawn. ABUSE ASSESSMENT: No report of abuse. Precautions taken: A further in-depth assessment is planned. The patient has been placed under frequent supervision with a friend at bedside. The patient was placed in direct sight of the nurses station. NUTRITIONAL RISK ASSESSMENT: The nutritional risk assessment revealed no deficiencies. FUNCTIONAL ASSESSMENT: Functional assessment: no impairments noted. LEARNING NEEDS ASSESSMENT: The learning needs assessment revealed no barriers. FALL RISK ASSESSMENT: Fall risk assessment completed. No risk factors identified. SKIN INTEGRITY ASSESSMENT: Skin integrity risk assessment completed. No skin integrity risk identified. --01:40 06/27/20 Lisa Lee R.N. FAMILY HX: Sister(s): Borderline personality disorder. --02:36 06/27/20 Elliot Elise.PHYSICAL DABTSUAILM28:33 06/27/20. Ambulatory to room. Patient gowned.GENERAL / NEURO / PSYCH: Alert. Oriented X 4. Appears in no acute distress. Speech within normallimits. Affect appears normal. Patient appears calm and cooperative. Good eye contact. Patientappears well-nourished and neat and clean.RESPIRATORY: Respirations not labored. Breath sounds within normal limits.CVS: Capillary refill less than 2 seconds.GI / : Abdomen soft and nontender. Bowel sounds within normal limits.SKIN: Skin intact. Skin is warm and dry. Skin color is within normal limits. --01:33 06/27/20 Jae Maharaj R.N. GENERAL / NEURO / PSYCH: The patient has a steady gait, has no smile response and appears flat affect. RESPIRATORY: Respirations not labored. CVS: Normal heart rate and rhythm. GI / : Bowel sounds within normal limits. SKIN: Skin is warm and dry. --01:44 06/27/20 Lisa Lee R.N.NURSING PROGRESS NOTES01:33 06/27/20. Reassurance given. Two patient identifiers checked. Call light placed in reach. Bedplaced in lowest position. Brakes of bed on. Patient ready for evaluation- ED physician notified. --01: Jae Maharaj R.N. Patient gowned. Suicide precautions initiated. Friend at bedside, checks performed every 15 minutes. 3 Clinical Report - Nurses [facility] Emergency Department [address] [place] [address] Phone #: ext- [phone] 06/27/2020 01:19 Patient: EDGARDO MANZANO Sex: F : 2000 Age: 20y Patient placed in direct sight of the nurse's station. --01:44 06/27/20 Lisa Lee R.N.DISPOSITION / DISCHARGE Departure time: 03:27 06/27/2020. Condition at departure: improved. No learning barriers present. Discharge instructions provided and reviewed with the patient. Reviewed referral to a psychiatrist and psychologist and crisis hotline. Patient verbalized understanding. Written instructions provided in Moldovan. The patient was discharged by the physician. She was discharged home and accompanied by precision structural metal fitter. She left ambulatory and via private vehicle. Organ Fixer driving. --03:53 06/27/20 Lisa Lee R.N. 03:50 06/27/20. BP: deferred. HR: deferred. RR: deferred. O2 saturation: deferred. Temp: deferred. Pain level now deferred. --03:53 06/27/20 Lisa Lee R.N.Locked/Released at 06/27/2020 04:25 by Lisa Lee R.N. Name Value Range Interpretation Code Description Data Lea rce(s) Supporting Document(s) ID Date Data Source [id number] 06/27/2020 01:19:00 AM EDT [facility] 1 Clinical Report - Physicians/Mid Levels [facility] Emergency Department [address] [place] [address] Phone #: ext- [phone] 06/27/2020 01:19 Patient: EDGARDO MANZANO Sex: F : 2000 Age: 20y Time Seen: 01:54 06/27/2020. Arrived- By private vehicle. Not in custody. Historian- patient.HISTORY OF PRESENT ILLNESS Chief Complaint: ANXIOUS. [place] was to go to medication session later today, but cancelled). No recent drug use or alcohol consumption. Has been angry but eating. Has not been sleeping. No paranoia, delusions, suicidal thoughts, self-injury inflicted or hallucinations. The symptoms are described as moderate. No injury is present. Patient feels frustrated, isolated and does not feel her CO is listening to her. Called Crisis several times yesterday. Her roommate was upsetting her. She is in quarantine for the last week due to nasal congestion and ear pain. Recent breakup with her boyfriend. One previous admission for depression. Additional history - Seen month ago for similar complaint. Similar symptoms previously.REVIEW OF SYSTEMSNo headache, dizziness, chest pain, vomiting or fever. No sore throat, skin rash or rash, enlarged lymphnodes or fever. No headache or difficulty with urination. She has had ear pain. All other systemsreviewed and are negative.PAST HISTORYSee nurses notes. No history of prior suicide attempt. Problems: Mood Disorder. Borderline personality traits. Additional Surgeries: . Medications: Multivitamins Oral 1 pill, daily. DEPO-Medrol Injection, started 05-31-2020. Allergies: No Known Drug Allergy. 2 Clinical Report - Physicians/Mid Levels [facility] Emergency Department [address] [place] [address] Phone #: ext- [phone] 06/27/2020 01:19 Patient: EDGARDO MANZANO Sex: F : 2000 Age: 20ySOCIAL HISTORYNever smoker. No alcohol use. Has social support.FAMILY HISTORYSister(s): Borderline personality disorder.ADDITIONAL NOTESThe nursing notes have been reviewed.PHYSICAL EXAMVital Signs: 06/27/2020 01:33 BP: 133/99. MAP: 110. HR: 80. RR: 16. O2 saturation: 100%. Temp: 97.2F.Sneha earance: Alert. No acute distress. Appearance is normal.Eyes: Pupils equal, round and reactive to light.Neck: Normal inspection. Neck supple.CVS: Normal heart rate and rhythm.Respiratory: Painless inspiration. Chest nontender. No wheezes.Abdomen: Soft.Back: No tenderness.Skin: Skin warm. Normal skin color.Extremities: Extremities exhibit normal ROM. No lower extremity edema.Psych / Neuro: Oriented X 3. Mood and affect normal. Speech normal. Cognition normal. Thoughtcontent normal. Insight and judgement normal. Cranial nerves normal (as tested). No motor deficit.No sensory deficit. Reflexes normal. PROGRESS AND PROCEDURESCourse of Care: 02:16 06/27/20. No evidence of any agitation. She has good insight to her condition. Shealready felt better after getting out of her quarantine tonight to speaking with someone. 02:37 06/27/20. Patient is pleasant and talking with staff and her friend. cheerful and conversive. She admitted that she felt better after getting out and talking with someone. Disposition: Discharged. 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 3 Clinical Report - Physicians/Mid Levels [facility] Emergency Department [address] [place] [address] Phone #: ext- [phone] 06/27/2020 01:19 Patient: EDGARDO MANZANO Sex: F : 2000 Age: 20y Understanding of the discharge instructions verbalized by patient. Follow- up with: [facility] Respective Team Cheryl [place], , , [address] [address], , [place], [address] Follow up in two days. Call for an appointment.(Electronically signed by Elliot Elise 06/27/2020 03:45) Name Value Range Interpretation Code Description Data Lea rce(s) Supporting Document(s) ID Date Data Source [id number] 06/20/2020 09:40:00 AM EDT [facility] Name Value Range Interpretation Code Description Data Lea rce(s) Supporting Document(s) SARS coronavirus 2 RNA Not Detected [facility] [place] This lab was ordered by [facility] and reported by [facility]. ID Date Data Source [id number] 05/23/2020 07:02:00 PM EDT [facility] 1 Medication Reconciliation Report [facility] Emergency Department [address] [place] [address] Phone #: ext- [phone] 05/23/2020 18:53 Patient: EDGARDO MANZANO Sex: F : 2000 Age: 20yWeight: 71.2 kgHeight/Length: 64 in.BMI: 27.0ALLERGIES: NoneThe patient's Home Medications are listed below:THE FOLLOWING MEDICATIONS NEED TO BE RECONCILED: Multivitamins OralThe source(s) of the original Home Medication information:Not obtained.The following Medications were given to the patient in the Emergency Department:None.The following Medications were prescribed to the patient:None. Name Value Range Interpretation Code Description Data Lea rce(s) Supporting Document(s) ID Date Data Source [id number] 05/23/2020 07:02:00 PM EDT [facility] 1 Medication Administration Record [facility] Emergency Department [address] [place] [address] Phone #: ext- [phone] 05/23/2020 18:53 Patient: EDGARDO MANZANO Sex: F : 2000 Age: 20yWeight: 71.2 kgHeight/Length: 64 inBMI: 27ALLERGIES: NoneDate/Time Medication Administered Medication Ordered Name Value Range Interpretation Code Description Data Lea rce(s) Supporting Document(s) ID Date Data Source [id number] 05/23/2020 07:02:00 PM EDT [facility] 1 Clinical Report - Nurses [facility] Emergency Department [address] [place] [address] Phone #: ext [phone] 05/23/2020 18:53 Patient: EDGARDO MANZANO Sex: F : 2000 Age: 20yTRIAGEArrived by private vehicle. Historian: patient. Unaccompanied. ( pt states that she is anxious but doesnot appear to be at this time).Acuity: LEVEL 5.Chief Complaint: ANXIETY and (anxiety).Alert. No acute distress.Onset: today. The patient has had anxiety.Treatment SAS PROGRAMMER:None.SEPSIS SCREEN: SIRS SCREEN NEGATIVE. SEPSIS SCREEN NEGATIVE. No suspected or confirmedsigns of infection present. --19:00 05/23/20 Eloise Bolanos R.N.18:56 05/23/20. BP: 125/81. MAP: 95. HR: 76. RR: 16. O2 saturation: 100%. Temp: 97.4 F. Pain levelnow: 5/10. Additional comments: back pain. --19:00 05/23/20 Eloise Bolanos R.N.Weight: 71.2 kg stated. Height/Length: 64 inches Per Patient. BMI: 27. --18:56 05/23/20 Eloise Bolanos R.N.MedicationsMultivitamins Oral. --18:57 05/23/20 Eloise Bolanos R.N.AllergiesNone. --18:56 05/23/20 Eloise Bolanos R.N.PROBLEMS:Borderline personality traits. --18:57 05/23/20 Eloise Bolanos R.N.ADDITIONAL SURGERIES:. --18:57 05/23/20 Eloise Bolanos R.N.HistoryPAST MEDICAL HX: Immunizations: up-to-date. Last normal menstrual period- does not remember. Usesdepo implants.SOCIAL HX: Smoker- current status unknown (vapes). No alcohol use or drug use. The patient wasoffered HIV testing but declined and hepatitis C testing but declined. The patient has not traveled outsidethe [place]Infectious disease exposure: No infectious disease exposure. Patient is a known carrier of MRSA. Staff 2 Clinical Report - Nurses [facility] Emergency Department [address] [place] [address] Phone #: ext- [phone] 05/23/2020 18:53 Patient: EDGARDO MANZANO Sex: F : 2000 Age: 20y notified. (mrsa buttucks treated with antibiotics). Patient is not a known carrier of tuberculosis, hepatitis, HIV, VRE or CRE. SELF HARM ASSESSMENT: Self harm assessment was performed. The patient answered "no" to the question(s) "Have you recently felt down, depressed, or hopeless?", "Do you have thoughts of harming or killing yourself?", "Do you have a plan for harming or killing yourself?", "Have you recently had thoughts about harming or killing others?", "Do you have any dangerous items in your possession?", "Have you noticed less interest or pleasure in doing things?", "Are you here because you tried to hurt yourself?" and "Have you ever tried to hurt yourself before today?". ABUSE ASSESSMENT: Abuse assessment. Abuse denied. No report of abuse. NUTRITIONAL RISK ASSESSMENT: The nutritional risk assessment revealed no deficiencies. FUNCTIONAL ASSESSMENT: Functional assessment: no impairments noted. LEARNING NEEDS ASSESSMENT: The learning needs assessment revealed no barriers. FALL RISK ASSESSMENT: Fall risk assessment completed. No risk factors identified. SKIN INTEGRITY ASSESSMENT: Skin integrity risk assessment completed. No skin integrity risk identified. --19:00 05/23/20 Eloise Bolanos R.N. Interventions Identification band on patient. To treatment room. --19:00 05/23/20 Eloise Bolanos R.N.NURSING PROGRESS NOTESPatient gowned. Reassurance given. Two patient identifiers checked. Call light placed in reach. Siderails up x 2. Bed placed in lowest position. Brakes of bed on. Patient ready for evaluation. --19: Eloise Bolanos R.N.DISPOSITION / DISCHARGE late entry - 19:05/23/20. Departure time: late entry - :05/23/2020. The patient left the Emergency Department without being seen by a physician and completion of treatment; patient was unaccompanied. The patient appears to be alert, oriented x4, coherent and in no acute distress. The patient notified staff prior to leaving the department and stated is leaving (felt uncomfortable). Notified the ED physician of patient departure. Prior to leaving, she was advised to return if needed. Patient left without signing form prior to leaving. She left the Emergency Department ambulatory and via private vehicle. --19:11 05/23/20 Hanane Christian R.N. late entry - 19:05/23/20. ( Pt was triaged, while registration was in the room registering the patient she stated "can I leave I feel uncomfortable?" charge nurse told patient she was able to leave). --19:12 05/23/20 Hanane Christian R.N. 3 Clinical Report - Nurses [facility] Emergency Department [address] [place] [address] Phone #: ext- [phone] 05/23/2020 18:53 Patient: EDGARDO MANZANO Sex: F : 2000 Age: 20yLocked/Released at 05/23/2020 19:12 by Hanaen Christian R.N. Name Value Range Interpretation Code Description Data Lea rce(s) Supporting Document(s) ID Date Data Source [id number] 05/12/2020 02:24:00 AM [place] [address] Medication Reconciliation Report [facility] Emergency Department [address] [place] [address] Phone #: ext- [phone] 05/12/2020 02:23 Patient: EDGARDO MANZANO Sex: F : 2000 Age: 20yWeight: 63.5 kgHeight/Length: 64 in.BMI: 24.0ALLERGIES: No Known Drug AllergyThe patient's Home Medications are listed below:THE FOLLOWING MEDICATIONS NEED TO BE RECONCILED: Multivitamins Oral 1 pill, dailyThe source(s) of the original Home Medication information:Not obtained.The following Medications were given to the patient in the Emergency Department:None.The following Medications were prescribed to the patient:None. Name Value Range Interpretation Code Description Data Lea rce(s) Supporting Document(s) ID Date Data Source [id number] 05/12/2020 02:24:00 AM [facility] 1 Medication Administration Record [facility] Emergency Department [address] [place] [address] Phone #: ext- [phone] 05/12/2020 02:23 Patient: EDGARDO MANZANO Sex: F : 2000 Age: 20yWeight: 63.5 kgHeight/Length: 64 inBMI: 24ALLERGIES: No Known Drug AllergyDate/Time Medication Administered Medication Ordered Name Value Range Interpretation Code Description Data Lea rce(s) Supporting Document(s) ID Date Data Source [id number] 05/12/2020 02:24:00 AM EST [facility] 1 General Instructions [facility] Emergency Department [address] [place] [address] Phone #: ext [phone] 05/12/2020 02:23 Patient: EDGARDO MANZANO Sex: F : 2000 Age: 20yMood disorder (mild recurrent major depressive disorder without psychosis)INSTRUCTIONSWarnings: GENERAL WARNINGS: Return or contact your physician immediately if your conditionworsens or changes unexpectedly, if not improving as expected, or if other problems arise.Understanding of the discharge instructions verbalized.Follow-up with: Follow up in two days if not well. ADDITIONAL INFORMATIONDepressionDepression is one of the most common mental health problems today. It is not just a state ofunhappiness or sadness. It is a true disease. The cause seems to be related to a decrease inchemicals that transmit signals in the brain. Having a family history of depression, alcoholism, orsuicide increases the risk. Chronic illness, chronic pain, migraine headaches, and high emotionalstress also increase the risk.Depression is something we tend to recognize in others, but may have a hard time seeing inourselves. It can show in many physical and emotional ways: Loss of appetite Overeating Not being able to sleep Sleeping too much Tiredness not related to physical exertion Restlessness or irritability Slowness of movement or speech Feeling depressed or withdrawn 2 General Instructions [facility] Emergency Department [address] [place] [address] Phone #: ext- [phone] 05/12/2020 02 :23 [id number] Sex: F : 2000 Age: 20y Loss of interest in things you once enjoyed Trouble concentrating, poor memory, trouble making decisions Thoughts of harming or killing oneself, or thoughts that life is not worth living Low self-esteemThe treatment for depression may include both medicine and psychotherapy. Antidepressants canreduce suffering and can improve the ability to function during the depressed period. Therapy canoffer emotional support and help you understand emotional factors that may be causing thedepression.Home care Ongoing care and support help people manage this disease. Find a healthcare provider and therapist who meet your needs. Seek help when you feel like you may be getting ill. Be kind to yourself. Make it a point to do things that you enjoy (gardening, walking in nature, going to a movie). Reward yourself for small successes. Take care of your physical body. Eat a balanced diet (low in saturated fat and high in fruits and vegetables). Exercise at least 3 times a week for 30 minutes. Even mild-moderate exercise (like brisk walking) can make you feel better. Don't drink alcohol, which can make depression worse. Take medicine as prescribed. Tell each of your healthcare providers about all of the prescription and [id number]-[id number] medicines, vitamins, and supplements you take. Certain supplements interact with medicines and can result in dangerous side effects. Ask your pharmacist when you have questions about medicine interactions. Talk with your family and trusted friends about your feelings and thoughts. Ask them to help you recognize behavior changes early so you can get help and, if needed, medicine can be adjusted.Follow-up careFollow up with your healthcare provider, or as advised.Call [phone] if you: Have suicidal thoughts, a suicide plan, and the means to carry out the plan; or serious 3 General Instructions [facility] Emergency Department [address] [place] [address] Phone #: ext- [phone] 05/12/2020 02:23 Patient: EDGARDO MANZANO Sex: F : 2000 Age: 20y thoughts of hurting someone else Have trouble breathing Are very confused Feel very drowsy or have trouble awakening Faint or lose consciousness Have new chest pain that becomes more severe, lasts longer, or spreads into your shoulder, arm, neck, jaw, or backWhen to seek medical adviceCall your healthcare provider right away if any of these happen: Feeling extreme depression, fear, anxiety, or anger toward yourself or others Feeling out of control Feeling that you may try to harm yourself or another Hearing voices that others do not hear Seeing things that others do not see Can't sleep or eat for 3 days in a row Friends or family express concern over your behavior and ask you to seek help [phone] [employer]. [address] [place] [address]. All rights reserved. This information is not intended as asubstitute for professional medical care. Always follow your healthcare professional's instructions. You have been given the following additional information: Depression(Electronically signed by Elliot Elise 05/12/2020 03:26) Name Value Range Interpretation Code Description Data Lea rce(s) Supporting Document(s) ID Date Data Source [id number] 05/12/2020 02:24:00 AM EST [facility] 1 Clinical Report - Nurses [facility] Emergency Department [address] [place] [address] Phone #: ext- [phone] 05/12/2020 02:23 Patient: EDGARDO MANZANO Sex: F : 2000 Age: 20yTRIAGEArrived by private vehicle. Historian: patient. ( Patient states complaint that her throat has been hurtingon and off since April. Patient states that [place]Patient says that tonight the pain is worse. Patient also voiced that she was feeling depressed and wantedto talk to someone about her mental health. Patient currently denies SI/HI. Patient states that someone sheis close with had made her angry earlier in the day.).Acuity: LEVEL 3.Chief Complaint: SORE THROAT.Alert. No acute distress.Onset. 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 SEPSIS SCREEN NEGATIVE. No suspected or confirm edsigns of infection present. --02:29 05/12/20 King Gonsalez02:24 05/12/20. BP: 140/94 taken on the right arm, via an automated monitor, while sitting. MAP: 109.HR: 90 (regular, normal rate and strong). RR: 16 (regular, unlabored and normal). O2 saturation: 99% onroom air. Temp: 98.3 F (oral). Pain level now: 09/08. --02:29 05/12/20 King Gonsalez.Weight: 63.5 kg stated. Height/Length: 64 inches Per Patient. BMI: 24. --02:28 05/12/20 King Gonsalez.MedicationsMultivitamins Oral 1 pill, daily. --02:27 05/12/20 King Gonsalez.AllergiesNo Known Drug Allergy. --02:27 05/12/20 King Gonsalez.HistorySOCIAL HX: Never smoker. No alcohol use or drug use. She was offered HIV testing but declined andhepatitis C testing but declined. She has not traveled outside the [place]Infectious disease exposure: No infectious disease exposure.SELF HARM ASSESSMENT: Self harm assessment was performed. The patient answered "yes" to thequestion(s) "Have you recently felt down, depressed, or hopeless?" and "no" to the question(s) "Do youhave thoughts of harming or killing yourself?", "Do you have a plan for harming or killing yourself?", "Haveyou recently had thoughts about harming or killing others?", "Do you have any dangerous items in your 2 Clinical Report - Nurses [facility] Emergency Department [address] [place] [address] Phone #: ext- [phone] 05/12/2020 02:23 Patient: EDGARDO MANZANO Sex: F : 2000 Age: 20y possession?", "Have you noticed less interest or pleasure in doing things?", "Are you here because you tried to hurt yourself?" and "Have you ever tried to hurt yourself before today?". ABUSE ASSESSMENT: Abuse assessment. Abuse denied. No report of abuse. NUTRITIONAL RISK ASSESSMENT: The nutritional risk assessment revealed no deficiencies. FUNCTIONAL ASSESSMENT: Functional assessment: no impairments noted. LEARNING NEEDS ASSESSMENT: The learning needs assessment revealed no barriers. FALL RISK ASSESSMENT: Fall risk assessment completed. No risk factors identified. SKIN INTEGRITY ASSESSMENT: Skin integrity risk assessment completed. No skin integrity risk identified. --02:29 05/12/20 King Gonsalez. FAMILY HX: Father: Schizophrenia. --02:52 05/12/20 Elliot Elise. Interventions Identification band on patient. To treatment room. --02:05/12/20 King Gonsalez.PHYSICAL ASSESSMENTAmbulatory to room.GENERAL / NEURO / PSYCH: Alert. Oriented X 4. Appears in pain.HEENT: Pupils equal, round and reactive to light. Tonsillar exudate present. Pharynx within normallimits. Voice within normal limits. Mouth within normal limits upon inspection. No dental injury noted.Mucous membranes are pink.RESPIRATORY: Respirations not labored.CVS: Capillary refill less than 2 seconds.SKIN: Skin is warm and dry. Normal skin turgor. --02:30 05/12/20 King Gonsalez.NURSING PROGRESS NOTESReassurance given. Call light placed in reach. Side rails up x 1. Bed placed in lowest position. Brakesof bed on. --02:30 05/12/20 King Gonsalez.DISPOSITION / DISCHARGE Condition at departure: stable. No learning barriers present. Discharge instructions provided and reviewed with the patient. Reviewed warnings (return if symptoms worsen). Reviewed referral to a psychiatrist. Patient verbalized understanding. Written instructions provided in Moldovan. No medication instructions or treatment instructions. The patient was discharged by the physician. She was discharged home. She left ambulatory and via private vehicle. Patient driving. --03:32 05/12/20 King Gonsalez 03:31 05/12/20. BP: 121/84 taken on the right arm, via an automated monitor, while sitting. MAP: 96. HR: 90 (regular, normal rate and strong). RR: 16 (regular, unlabored and normal). O2 saturation: 99% on room 3 Clinical Report - Nurses [facility] Emergency Department [address] [place] [address] Phone #: ext- [phone] 05/12/2020 02:23 Patient: EDGARDO MANZANO Sex: F : 2000 Age: 20y air. Temp: 97.8 F (oral). Pain level now: 0/10. --03:32 05/12/20 King Gonsalez.Locked/Released at 05/12/2020 03:32 by King Gonsalez Name Value Range Interpretation Code Description Data Lea rce(s) Supporting Document(s) ID Date Data Source [id number] 05/12/2020 02:24:00 AM [facility] 1 Clinical Report - Physicians/Mid Levels [facility] Emergency Department [address] [place] [address] Phone #: ext- [phone] 05/12/2020 02:23 Patient: EDGARDO MANZANO Sex: F : 2000 Age: 20y Time Seen: 02:26 05/12/2020. Arrived- By private vehicle. Not in custody. Historian- patient.HISTORY OF PRESENT ILLNESS Chief Complaint: DEPRESSED and NEED SOMEONE TO TALK TO. This started several months. The patient has not exhibited a behavior change. (A friend recently went on social media to say negative things about her. She was upset and feels her friends turned on her.). No recent alcohol consumption. Has been angry but eating or sleeping. No anxiety, unusual behavior, paranoia, delusions or suicidal thoughts. No self- injury inflicted or hallucinations. The symptoms are described as moderate. No injury is present. Additional history - Also complains of post nasal drip with sore throat over a month. no fever or painful swallowing. Patient was upset earlier about what someone said on a text message. She was admitted one time last year in [place] for depression. Patient feels alone sometimes and gets frustrated. Patient was on Aderall for ADD in high school. Patient already seen at [facility] and is connected to therapist and psychiatrist. She also called crisis line twice today. Similar symptoms previously.REVIEW OF SYSTEMSNo headache, chest pain, vomiting, fever or enlarged lymph nodes. No weight loss, sinus pain, neck pain,headache or suicidal thoughts. No symptoms of hypothyroidism. She has had a sore throat, nasalcongestion and a sore throat. All other systems reviewed and are negative.PAST HISTORYSee nurses notes. ( Kristen gnosed with borderline personality at one point.). No history of prior suicideattempt. Surgeries: No history of previous surgery. Medications: Multivitamins Oral 1 pill, daily. Allergies: No Known Drug Allergy.SOCIAL HISTORYNever smoker. Has poor social support. Has place to stay. 2 Clinical Report - Physicians/Mid Levels [facility] Emergency Department [address] [place] [address] Phone #: ext- [phone] 05/12/2020 02:23 ------ Patient: EDGARDO MANZANO Sex: F : 2000 Age: 20yFAMILY HISTORYFather: Schizophrenia.ADDITIONAL NOTESThe nursing notes have been reviewed.PHYSICAL EXAMVital Signs: 05/12/2020 02:24 BP: sitting 140/94. MAP: 109. HR: 90. RR: 16. O2 saturation: 99% on roomair. Temp: 98.3 F. Pain level now: 710.Appearance: Alert. No acute distress. Appearance is normal.HEENT: (uvula normal . tonsillar tissue only minimally injected).Eyes: Pupils equal, round and reactive to light.Neck: Normal inspection. Neck supple.CVS: Normal heart rate and rhythm. Heart sounds normal.Respiratory: Painless inspiration. Chest nontender.Abdomen: Soft.Skin: Skin warm and dry. Normal skin color. Normal skin turgor.Extremities: Extremities exhibit normal ROM. No lower extremity edema.Psych / Neuro: Oriented X 3. Speech normal. Cognition normal. Thought process and content normal.Insight and judgement normal. Cranial nerves normal (as tested). No cerebellar findings. No motordeficit. No sensory deficit. Reflexes normal.PROGRESS AND PROCEDURESCourse of Care: 03:08 05/12/20. No suicidal or homicidal ideations. Some depressed thoughts. Nohallucinations. [place] Complaints of sore throat appears to beincidental issue. 03:24 05/12/20. Patient does not wish to speak with psychiatist at this time or be transferred to psychiatric facility. She is cooperative and pleasant. She has good insight to her situation. Disposition: Discharged. 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 3 Clinical Report - Physicians/Mid Levels [facility] Emergency Department [address] [place] [address] Phone #: ext- [phone] 05/12/2020 02:23 Patient: EDGARDO MANZANO Sex: F : 2000 Age: 20y Understanding of the discharge instructions verbalized. Follow-up with: Follow up in two days if not well.(Electronically signed by Elliot Elise 05/12/2020 03:26) Name Value Range Interpretation Code Description Data Lea rce(s) Supporting Document(s) Procedure Social History No Information
[2020-12-25 21:16] LABS: HEMATOCRIT 40.4 % (36.0-47.0); HEMOGLOBIN 14.1 g/dl (12.0-15.5); MEAN CORPUSCULAR HEMOGLOBIN 31.1 pg (27.0-33.0); MEAN CORPUSCULAR HGB CONC 34.9 g/dl (32.0-36.5); MEAN CORPUSCULAR VOLUME 89.2 fl (80.0-96.0); PLATELET COUNT, AUTOMATED 220 10^3/uL (150-450); RED BLOOD COUNT 4.53 10^6/uL (4.00-5.40); WHITE BLOOD COUNT 8.6 10^3/uL (4.0-10.0)
--- OUTSIDE RECORDS SUMMARY | 2020-12-25 21:35 | CCD ---
Author Author [facility] Organization [facility] Address Unknown Phone Unavailable Care Team Providers Care Biotech Production Specialist Name Role Phone AMRIK, F TOBY DO [...] Unavailable Unavailable Elliot Elise MD Unavailable Unavailable Elise Elliot POLLOCK Unavailable Unavailable Elise, Elliot POLLOCK Unavailable Unavailable Elise, Elliot POLLOCK Unavailable Unavailable TURRIN, NALINI Unavailable Unavailable TURRIN, NALINI Unavailable Unavailable TURRIN, NALINI Unavailable Unavailable TURRIN, ANLINI Unavailable Unavailable NON, PHYSICIAN STAFF Unavailable Unavailable [...] protected by Article 27-F of the [facility] Public Health law. If you continue you may have access to information: Regarding HIV / AIDS; Provided by facilities licensed or operated by the [facility] Office of Mental Health; or Provided by the [facility] Office for People With Developmental Disabilities. If such information is present, then the following [facility] mandated warning applies: This information has [...] law may result in a fine or fci sentence or both. A general authorization for the release of medical or other information is NOT sufficient authorization for further disc losure. Encounters Encounter Providers Location Date Indications Data Source(s ) Emergency Attender: TOBY ELIZABETH DOConsultant: STAFF NON 07/07/2020 11:07:00 PM EDT - 07/08/2020 06:56:00 AM EDT [facility] ital Patient discharged. Emergency Attender: Elliot Elise MDConsultant: STAFF NON 06/27/2020 01:19:00 AM EDT - 06/27/2020 03:27:00 AM EDT [facility] Patient discharged. Emergency Attender: NALINI LANDISConsultant: STAFF NON 05/23/2020 07:02:00 PM EDT - 05/23/2020 07:06:00 PM EDT [facility] ital Patient discharged. Emergency Attender: Elliot Arik MDConsultant: STAFF NON 05/12/2020 02:24:00 AM EST - 05/12/2020 03:31:00 AM [facility] Patient discharged. Medications No Information Insurance Providers Payer name Policy type / Coverage type Policy ID Covered alliance party ID Covered alliance party's relationship to tristan Policy Tristan Plan Information [facility] ACTIVE DUTY [id number] SP [id number] [facility] HUMANA - O/P [id number] 18 [id number] Problems, Conditions, and Diagnoses Code Display Name Description Problem Type Effective Dates Data Source(s) Y929 [address] or not applicable Unspecified place or not applicable Diagnosis 07/07/2020 11:07:00 PM EDT [facility] [id number] Intentional self-harm by other specified means, initial encounter Intentional self-harm by other specified means, initial encounter Diagnosis 07/07/2020 11:07:00 PM EDT [facility] F40602 CONTACT WITH AND SUSPECTED EXPOSURE TO C OVID-19 CONTACT WITH AND SUSPECTED EXPOSURE TO COVID-19 Diagnosis 07/07/2020 11:07:00 PM EDT [facility] Y906 Blood alcohol level of 120-199 mg/100 ml Blood alcohol level of 120-199 mg/100 ml Diagnosis 07/07/2020 11:07:00 PM EDT [facility] [id number] Laceration without foreign body of left wrist, initial encounter Laceration without foreign body of left wrist, initial encounter Diagnosis 07/07/2020 11:07:00 PM EDT [facility] S91872 Nicotine dependence, other tobacco produ ct, uncomplicated Nicotine dependence, other tobacco product, uncomplicated Diagnosis 07/07 11:07:00 PM EDT [facility] V77921 Alcohol abuse with intoxication, uncompl icated Alcohol abuse with intoxication, uncomplicated Diagnosis 07/07/2020 11:07:00 PM EDT [facility] 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, single episod e, 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, single episode, severe with psychotic features Diagnosis 07/07/2020 11:07:00 PM EDT [facility] [id number] Suicidal ideations Suicidal ideations Diagnosis 09/2020 11:07:00 PM EDT [facility] F330 Major depressive disorder, recurrent, mi ld Major depressive disorder, recurrent, mild Diagnosis 06/27/2020 01:19:00 AM EDT [facility] F419 Anxiety disorder, unspecified Anxiety disorder, unspec ified Diagnosis 06/27/2020 01:19:00 AM EDT [facility] Z5321 Procedure and treatment not carried out due to patient leaving prior to being seen by health care provider Procedure and treatment not carried out due to patient leaving prior to being seen by health care provider Diagnosis 05/23/2020 07:02:00 PM EDT [facility] F329 Major depressive disorder, single episod e, unspecified Major depressive disorder, single episode, unspecified Diagnosis 05/12/2020 02:24:00 AM [facility] Surgeries/Procedures No Information Results ID Date Data Source [id number] 12/10/2020 01:59:00 PM EDT [facility] Name Value Range Interpretation Code Description Data Lea rce(s) Supporting Document(s) SARS coronavirus 2 RNA [Presence] in Res piratory specimen by CHIN with probe detection NEGATIVE [facility] This lab was ordered by [facility] a nd reported by [facility]. ID Date Data Source [id number] 11/21/2020 04:51:00 AM EDT [facility] Name Value Range Interpretation Code Description Data Lea rce(s) Supporting Document(s) SARS coronavirus 2 RNA [Presence] in Res piratory specimen by CHIN with probe detection NEGATIVE [facility] This lab was ordered by [facility] a nd reported by [facility]. ID Date Data Source [id number] 07/08/2020 01:07:00 PM EDT [facility] [address] [place] [address] RESPIRATORY CARE REPORT ==== ---------NAME------- NUMBER SEX AGE ADMIT DISC. XRAY# F/C MARK Wetzel [id number] F 07/07/20 07/08/20 [id number] SB4 E/R DATE OF : 2000 M/R# [id number] #: [id number] TR-02 LOCATION: EMERGENCY DEPT EKG 19846 COMP LETE:07/08/20 01:43 AJP 21232 PHYSICIAN: AMRIK ANTOINE Name Value Range Interpretation Code Description Data Lea rce(s) Supporting Document(s) ID Date Data Source [id number] 07/07/2020 11:07:00 PM EDT [facility] 1 OrderSheet [facility] Emergency Department [address] [place] [address] Phone #: ext- [phone] 07/07/2020 22:48 Patient: [...] Toby Elizabeth 07/08/2020 Yan Gonsalez LauraDefined by CDC) Physician; King Starks(07/07/2020) (First 2 OrderSheet [facility] Emergency Department [address] [place] [address] Phone #: ext- [phone] 07/07/2020 22:48 Patient: [...] Toby Elizabeth PhysicianAcetaminophen PO 06:48 07/08/2020 06:50 Sunshine,650 mg (NOW) Toby Malik Physician;GENERAL ORDERSOrder Description Priority Entered Acknowledged InitialedEKG 23:04 07/07/2020 23:15 Toby Gonsalez Physician;Transfer: ([facility]) 06:40 07/08/2020 06:44 Toby Heredia R.N. Physician;[Electronically signed by Toby Elizabeth (06:50 07/08/2020 )][Electronically signed by Ivory Heredia R.N. (06:56 07/08/2020)][Electronically locked by Ivory Heredia R.N. (06:56 07/08/2020)] Name Value Range Interpretation Code Description Data Lea rce(s) Supporting Document(s) ID Date Data Source [id number] 07/07/2020 11:07:00 PM EDT [facility] 1 Medication Reconciliation Report [facility] Emergency Department [address] [place] [address] Phone #: ext- [phone] 07/07/2020 22:48 Patient: EDGARDO MANZANO Sex: F : 2000 Age: 20yWeight: 68.0 kgHeight/Length: 66 in.BMI: 24.2ALLERGIES: No Known Drug AllergyThe patient's Home Medications are listed below:NONE.The source(s) of the original Home Medication information:Not obtained.The following Medications were given to the patient in the Emergency Department:Acetaminophen [PO] PO 650 mg, administered: 03:38 07/08/2020cetaminophen [PO] PO 650 mg, administered: 06:50 05/09/2021The following Medications were prescribed to the patient:None. Name Value Range Interpretation Code Description Data Lea rce(s) Supporting Document(s) ID Date Data Source [id number] 07/07/2020 11:07:00 PM EDT [facility] 1 Medication Administration Record [facility] Emergency Department [address] [place] [address] Phone #: ext- [phone] 07/07/2020 22:48 Patient: [...] rce(s) Supporting Document(s) ID Date Data Source [id number] 07/07/2020 11:07:00 PM EDT [facility] 1 General Instructions [facility] Emergency Department [address] [place] [address] Phone #: ext- [phone] 07/07/2020 22:48 Patient: [...] rce(s) Supporting Document(s) ID Date Data Source [id number] 07/07/2020 11:07:00 PM EDT [facility] 1 Clinical Report - Nurses [facility] Emergency Department [address] [place] [address] Phone #: ext- [phone] 07/07/2020 22:48 Patient: EDGARDO MANZANO Sex: F : 2000 Age: 20yTRIAGEArrived by private vehicle. Historian: patient. ( Patient states SI/HI, emotional distress due to personalstress.).Acuity: LEVEL 2.Chief Complaint: DEPRESSION and SUICIDAL THOUGHTS and THOUGHTS OF HARMING SELF andHOMICIDAL THOUGHTS.Alert. No acute distress.Onset: today.Treatment SUPERVISOR BONDING:None.SEPSIS SCREEN: SIRS SCREEN NEGATIVE. SEPSIS SCREEN NEGATIVE. No suspected or confirmedsigns of infection present. --22:54 07/07/20 King Gonsalez22:48 07/07/20. BP: 150/76 taken on the right arm, via an automated monitor, while sitting. MAP: 100.HR: 115 (regular, tachycardic and strong). RR: 16 (regular, unlabored and normal). O2 saturation: 99% onroom air. Temp: 97.8 F (oral). Pain level now: 0/10. --22:54 07/07/20 iKng Gonsalez.Weight: 68 kg stated. Height/Length: 66 inches [...] because you 2 Clinical Report - Nurses [facility] Emergency Department [address] [place] [address] Phone #: ext- [phone] 07/07/2020 22:48 Patient: [...] Heredia R.N. 3 Clinical Report - Nurses [facility] Emergency Department [address] [place] [address] Phone #: ext- [phone] 07/07/2020 22:48 Patient: EDGARDO MANZANO Sex: F [...] care. Pt requesting to use bathroom. Nursing Administrative Professional with pt for 1:1. Pt had lockedherself [...] be recording staff. Pt not cooperative, MD Duboisde aware. PD and MP called at that [...] and she hasreturned with a member from [place] back into the bathroom. She was given a field test for alcohol bythe police but she is currently still at 1.1. As the night has progressed she has become difficult to redirect.At this moment she is in the bathroom with an assigned soldier. We continue to await medical clearance fortransfer to [facility] for a psychiatric evaluation.). --01:59 07/08/20 Mora Gilbert, RN03:25 07/08/20. BP: 119/82. MAP: 94. HR: 95. RR: 16. O2 saturation: 99% on room air. Pain level now:07/09. --03:26 07/08/20 Ivory Heredia R.N.03:38 07/08/2020 Acetaminophen PO 650 mg given. Allergies verified and confirmed 5 rights. Informationreviewed with patient. Verbalizes understanding. --03:38 07/08/20 Ivory Heredia RMilagroN.The patient is calm and resting quietly. ( Patient remains resting on stretcher at this time, pt's commanderis at bedside with pt. Awaiting to hear back from [facility] to see if she will be accepting for psych unit.).--05:07 07/08/20 Ivory Heredia R.N.The patient is calm and resting quietly. ( Patient walked outside with commander for "fresh air". MDPalumbo okay with pt going outside with commander. Pt remains visible in outside camera. Pt walked backin onto stretcher with commander, remains calm and quiet. Awaiting to hear back from [facility] at this time.). 4 Clinical Report - Nurses [facility] Emergency Department [address] [place] [address] Phone #: ext- [phone] 07/07/2020 22:48 Patient: EDGARDO MANZANO Sex: F : 2000 Age: 20y --05:50 07/08/20 Ivory Hreedia R.N. 05:47 07/08/20. BP: 115/84. MAP: 94. [...] awaiting for their arrival. Attempting to get [facility] to accept pt with PD as pt [...] 07/08/20 King Gonsalez.DISPOSITION / DISCHARGE Transferred to [facility]. Visit overview, summary of care (CCDA), Emtala forms and Face Sheet provided. Transported via (Pt being transfered to [facility] with PD). Report was given to a nurse via a phone call. Report included information regarding patient's care, treatment, allergies and condition including: recent changes and anticipated changes, current vital signs and abnormal labs. Report included treatment information regarding medications given or pending. All questions were answered. Report was acknowledged and care was transferred. (GURPREET Leija at [facility]). Patient's personal items include, PD took valuables with pt to be transfered to [facility]. --06:55 07/08/20 Ivory Heredia R.N. 06:52 07/08/20. [...] Heredia R.N. 5 Clinical Report - Nurses [facility] Emergency Department [address] [place] [address] Phone #: ext- [phone] 07/07/2020 22:48 Patient: EDGARDO MANZANO Sex: Rashard : 2000 Age: 20y Name Value Range Interpretation Code Description Data Lea rce(s) Supporting Document(s) ID Date Data Source [id number] 07/07/2020 11:07:00 PM EDT [facility] 1 Clinical Report - Physicians/Mid Levels [facility] Emergency Department [address] [place] [address] Phone #: ext- [phone] 07/07/2020 22:48 Patient: [...] Heart sounds normal. 2 Clinical Report - Physicians/[facility] Emergency Department [address] [place] [address] Phone #: ext- [phone] 07/07/2020 22:48 Patient: EDGARDO MANZANO Sex: F [...] EKGEKG: Normal EKG. Normal sinus rhythm. Normal WV interval. Normal QRS complexes. Normal STs and Twaves. No ectopy.Laboratory Tests: Laboratory tests have been ordered, with results reviewed and considered in themedical decision making process. COVID-19 CAH: (CUONG: 07/08/2020 03:31) ( [facility] Final results Test Result Flag Units (Reference) COVID-19 NOT DETECTED COVID-19 REENTER NOT DETECTED { PROCEDURAL CONTROL VALID KIT LOT # _[id number] 07/08/20.401.AB . . . KIT EXP DATE _0605 07/08/20.401.AB . . . NORMAL RANGE IS NOT DETECTEDNEGATIVE RESULTS SHOULD BE TREATED PRESUMPTIVE AND, IF INCONSISTENT WITHCLINICAL SIGNS AND SYMPTOMS OR NECESSARY FOR PATIENT MANAGEMENT, SHOULD BETESTED WITH DIFFERENT AUTHORIZED OR CLEARED MOLECULAR TESTS. NEGATIVE RESULTSDO NOT PRECLUDE SARS-CoV-2 INFECTION AND SHOULD NOT BE USED THE SOLE BASISFOR PATIENT MANAGEMENT DECISIONS. CBC w Diff: (CUONG: 07/07/2020 23:10) ( [facility] cvd 07/07/2020 23:26) Final results Test Result [...] 0.20) 3 Clinical Report - Physicians/Mid Levels [facility] Emergency Department [address] [place] [address] Phone #: ext- [phone] 07/07/2020 22:48 Patient: [...] Male GFR Interprentation 20-49 yrs >60 mL/min Euojtz66-45 yrs >56 mL/min Normal 60- 69 yrs >49 mL/min Normal 70-79yrs>42 mL/min Normal 80 and above >35 mL/min Normal Female GFRInterpretation 20-39 yrs >60 mL/min Normal 40-49 yrs >58 mL/minNormal 50-59 yrs >51 mL/min Normal 60-69 yrs >45 mL/min Xggrwo17-91 yrs >39 mL/min Normal 80 and above >32 mL/min NormalETOH: (CUONG: 07/07/2020 23:10) ( DegRcvd 07/07/2020 23:42) Final results Test Result Flag Units (Reference) ALCOHOL 194.0 MG/DL ALCOHOL % 0.19 H % (0.00 - 0.01) *FOR MEDICAL PURPOSES ONLY*TSH: (CUONG: 07/07/2020 23:10) ( MsgRcvd 07/07/2020 23:47) Final results Test Result Flag Units (Reference) TSH 1.42 uIU/mL (0.47 - 5.01)Urinalysis: (CUONG: 07/07/2020 23:10) ( MsgRcvd 07/07/2020 23:37) Final results Test Result Flag Units (Reference) URINALYSIS URINALYSIS SOURCE Clean Catch COLOR yellow (NORMAL: Yello CLARITY clear (NORMAL: Clear 4 Clinical Report - Physicians/Mid Levels [facility] Emergency Department [address] [place] [address] Phone #: ext- [phone] 07/07/2020 22:48 Patient: EDGARDO MANZANO Sex: F [...] NEGATIVE (NORMAL: NEGAT { KIT LOT # [id number] ){ KIT EXP DATE 211001 ){ PROCEDURAL CONTROL VALID ) Acetaminophen Level: (CUONG: 07/07/2020 23:10) ( MsgRcvd 07/07/2020 23:37) Final results Test Result Flag Units (Reference) ACETAMINOPHEN <5.0 UG/ML (0.0 - 30.0) Salicylate Level: (CUONG: 07/07/2020 23:10) ( MsgRcvd 07/07/2020 23:42) Final results Test Result Flag Units (Reference) SALICYLATE <0.3 L mg/dL (2.0 - 20.0). 5 Clinical Report - Physicians/Mid Levels [facility] Emergency Department [address] [place] [address] Phone #: ext- [phone] 07/07/2020 22:48 Patient: EDGARDO MANZANO Sex: Rashard : [birth year] Age: 20yPROGRESS AND PROCEDURESCourse of Care: 23:07 Jul 07 2020. (Patient's history obtained and exam completed. treatment plandiscussed and agreed upon. Labs and EKG ordered. Patient agrees with transferred to [facility] for Psych.). 04:22 Jul 08 2020. (EOT at 0330 .08). 06:38 Jul 08 2020. (Patient accepted by dr Mac after report given.). 06:43 Jul 08 2020. (Patient had threatening outburst at staff. Discussed transfer to [facility] with Dr Mac he requests transfer via Police custody.). Disposition: Benefits, risks and alternatives to transfer explained to patient. Transferred to [facility]. Summary of care (CCDA) provided to [...] rce(s) Supporting Document(s) ID Date Data Source [id number] 07/08/2020 04:21:00 AM EDT [facility] Name Value Range Interpretation Code Description Data Lea rce(s) Supporting Document(s) Ethanol [Moles/volume] in Blood 76.6 MG/DL [facility] ALCOHOL % 0.08 % 0.00 - 0.01 H [facility] ital *FOR MEDICAL PURPOSES ONLY * ID Date Data Source [id number] 07/08/2020 03:31:00 AM EDT [facility] Name Value Range Interpretation Code Description Data Lea rce(s) Supporting Document(s) COVID19 Case rprt NOT DETECTED [facility] This lab was ordered by [facility] and reported by [facility]. ID Date Data Source [id number] 07/08/2020 04:02:00 AM EDT [facility] NOT DETECTEDNOT DETECTED{ PROC EDURAL CONTROL VALID [...] rce(s) Supporting Document(s) ID Date Data Source [id number] 07/12/2020 09:18:00 PM EDT [facility] Name Value Range Interpretation Code Description Data Lea rce(s) Supporting Document(s) CULTURE URINE [facility] _CULTURE URINE_$$[id number]$$[id number]$$[id number]$$[id number]$$[id number]$$638394$$[id number]$$851660$$264415$$ 015036$$972041$$094474$$749978$$997187$$405139$$557687$$334853$$518806$$986300$$ 534826$$080306$$042968$$432390$$614993$$879600$$062735$$[id number] -- Continued on next page --Patient: JOSE JUAN REYNOSO F Order: [id number] Page 2Culture: CULTURE URINE Status: Final ==== -- Continued on next page --Patient: JOSE JUAN REYNOSO F Order: [id number] Page 2Culture: CULTURE URINE Status: Prelim =====$$[id number]$$[id number] DATE/TIME: 07/12/2020 16:07Culture: CULTURE URINE Status: FinalIsolate 1 Enterococcus faecalis Flag: A . . . . . . .736,000-25,000 colony forming units per mL Previous result entered on 07/11/2020 20:26 ET Microbiological testing to rule out the presence of possible pathogensis in progress.Urine Culture,Comprehensive: [id number] faecalis Flag: AIsolate 2 Escherichia coli Flag: [...] coli Flag: APatient: JOSE JUAN Wetzel Order: [id number] Page 3Culture: CULTURE URINE Status: Final ====ISOLATE 1 Enterococcus faecalisISOLATE 2 Escherichia coli Isolate 1 Isolate 2Antibiotic REESE Int REESE IntUnits ug/mL ug/mL Amoxicillin/Clavulanic Acid Ampicillin Cefepime Ceftriaxone Cefuroxime Ciprofloxacin S S Ertapenem Gentamicin Imipenem Levofloxacin S S Meropenem Nitrofurantoin S S Penicillin S S Piperacillin/Tazobactam Tetracycline R R Tobramycin Trimethoprim/Sulfa Vancomycin S S P1 Test performed by: Melissa Frazier [facility] #: [id number] [address] [place] [id number] [facility] [id number] Director : Arnol Parmar MD NPI #:Medical Equipment Repair Technician : 07/12/20.0733.XMT.SENT REF 07/12/20.2118.XMT.SENT REF ID Date Data Source [id number] 07/07/2020 11:47:00 PM EDT [facility] Name Value Range Interpretation Code Description Data Lea rce(s) Supporting Document(s) Thyrotropin [Units/volume] in Serum or Plasma by Detec tion limit <= 0.05 mIU/L 1.42 uIU/mL 0.47 - 5.01 [facility] ID Date Data Source [id number] 07/07/2020 11:42:00 PM EDT [facility] Value Range Interpretation Code Description Data Lea rce(s) Supporting Document(s) SALICYLATE <0.3 mg/dL 2.0 - 20.0 L [facility] ID Date Data Source [id number] 07/07/2020 11:41:00 PM EDT [facility] Name Value Range Interpretation Code Description Data Lea rce(s) Supporting Document(s) Ethanol [Moles/volume] in Blood 194.0 MG/DL [facility] ALCOHOL % 0.19 % 0.00 - 0.01 H [facility] ital *FOR MEDICAL PURPOSES ONLY * ID Date Data Source [id number] 07/07/2020 11:41:00 PM EDT [facility] Value Range Interpretation Code Description Data Lea rce(s) Supporting Document(s) COMPREHENSIVE METABOLIC PANEL [facility] COMPREHENSIVE METABOLIC PANEL Sodium [Moles/volume] in Serum or Plasma 137 mEq/L 134 - 153 [facility] Potassium [Moles/volume] in Serum or Plasma 3.5 mEq/L 3.6 - 5.0 L [facility] Chloride [Moles/volume] in Serum or Plasma 107 mEq/L 98 - 107 [facility] Carbon dioxide, total [Moles/volume] in Serum or Plasma 18 MEQ/L 22 - 30 L [facility] Glucose [Mass/volume] in Serum or Plasma 116 MG/DL 70 - 99 H [facility] BUN 12 MG/DL 7 - [address] [facility] al Creatinine [Mass/volume] in Serum or Plasma 0.9 MG/DL 0.7 - 1.5 [facility] BUN/CREAT 13 8 - 27 [facility] al Protein [Mass/volume] in Serum or Plasma 7.7 G/DL 6.3 - 8.2 [facility] Albumin [Mass/volume] in Serum or Plasma 4.6 G/DL 3.9 - 5.0 [facility] Globulin [Mass/volume] in Serum by calculation 3.1 GM/DL 2.4 - 3.2 [facility] A/G RATIO 1.5 0.8 - 2.0 [facility] Calcium [Mass/volume] in Serum or Plasma 9.4 MG/DL 8.4 - 10.2 [facility] Bilirubin.total [Mass/volume] in Serum or Plasma <0.7 MG/DL 0.2 - 1.3 [facility] Alkaline phosphatase [Enzymatic activity/volume] in Serum or Plasma 60 U/L 38 - 126 [facility] Aspartate aminotransferase [Enzymatic activity/volume] in Serum or Plasma 23 U/L 5 - 40 [facility] Alanine aminotransferase [Enzymatic activity/volume] in Seru m or Plasma 14 U/L 7 - 56 [facility] Anion gap 3 in Serum or Plasma 12.0 mmol/L 8.0 - 16.0 [facility] AGE 20 yrs [facility] al NON-AA GFR >60 mL/min [facility] ital AFR AMER GFR >60 mL/min [facility] Male GFR In terprentation [...] >32 mL/min Normal ID Date Data Source [id number] 07/07/2020 11:41:00 PM EDT [facility] Name Value Range Interpretation Code Description Data Lea rce(s) Supporting Document(s) DRUG SCREEN URINE [facility] URINE DRUG SCREEN Amphetamine [Presence] in Urine by Screen method NEGATIVE NORMAL: N EGATIVE [facility] BARBITURATES NEGATIVE NORMAL: NEGATIVE [facility] BENZO NEGATIVE NORMAL: NEGATIVE [facility] COCAINE NEGATIVE NORMAL: NEGATIVE [facility] Tetrahydrocannabinol [Presence] in Urine NEGATIVE NORMAL: NEGATIVE [facility] OPIATES NEGATIVE NORMAL: NEGATIVE [facility] Phencyclidine [Presence] in Urine by Screen method NEGATIVE NOR MAL: NEGATIVE [facility] \\BLDo\\URINE DRUG SCR EEN INTERPRETATION\\BLDx\\ THE CUTOFFF LEVELS FOR DETECTION ARE FOLLOWS: AMPHETAMINES 1000 ng/ml BARBITUARATES 200 ng/ml BENZODIAZEPINES 100 ng/ml THC 50 ng/ml PHENCYCLIDINE 25 ng/ml OPIATES 300 ng/ml COCAINE 300 ng/ml ALL POSITIVES ARE CONSIDERED PRESUMPTIVE POSITIVE CONFIRMATION WILL BE PERFORMED AT PHYSICIAN REQUEST. ID Date Data Source [id number] 07/07/2020 11:36:00 PM EDT [facility] Name Value Range Interpretation Code Description Data Lea rce(s) Supporting Document(s) URINALYSIS [facility] URINALYSIS SOURCE Clean Catch [facility] ital COLOR yellow NORMAL: Yellow [facility] CLARITY clear NORMAL: Clear [facility] Specific gravity of Urine by Test strip 1.010 1.001 - 1.030 [facility] pH 6.5 5 - 9 [facility] Glucose [Mass/volume] in Urine by Test strip NORM NORMAL: Negat [facility] Bilirubin.total [Presence] in Urine by Test strip NEG NORMAL: Negative [facility] Ketones [Presence] in Urine by Test strip NEG NORMAL: Negative [facility] Protein [Mass/volume] in Urine by Test strip NEG NORMAL: Negat [facility] Nitrite [Presence] in Urine by Test strip NEG NORMAL: Negative [facility] BLOOD NEG NORMAL: Negative [facility] Leukocyte esterase [Presence] in Urine by Test strip 500 RICH L: Negative [facility] Urobilinogen [Mass/volume] in Urine by Test strip NOR less azul n 1.0 mg/dL [facility] MICROSCOPIC See Below [facility] ital WBC 5 - 7 NORMAL: NONE SEEN A [facility] Erythrocytes [#/volume] in Urine by Test strip 0 - 1 NORMAL: NON E SEEN [facility] EPITHELIAL FEW NORMAL: NONE SEEN [facility] Bacteria [Presence] in Urine sediment by Light microscopy Tr navi NORMAL: NONE SEEN [facility] ID Date Data Source [id number] 07/07/2020 11:37:00 PM EDT [facility] Name Value Range Interpretation Code Description Data Lea rce(s) Supporting Document(s) Acetaminophen [Presence] in Urine <5.0 UG/ML 0.0 - 30.0 [facility] ID Date Data Source [id number] 07/07/2020 11:29:00 PM EDT [facility] Name Value Range Interpretation Code Description Data Lea rce(s) Supporting Document(s) HCG URINE QUAL NEGATIVE NORMAL: NEGATIVE [facility] HCG URINE QL REENTER NEGATIVE NORMAL: NEGATIVE [facility] { KIT LOT # [id number] ){ KIT EXP DATE [id number] ){ PROCEDURAL CONTROL VALID ) ID Date Data Source [id number] 07/07/2020 11:26:00 PM EDT [facility] Name Value Range Interpretation Code Description Data Lea rce(s) Supporting Document(s) CBC W/AUTOMATED DIFF [facility] COMPLETE BLOOD COUNT Leukocytes [#/volume] in Blood by Automated count 9.0 10^3/uL 4.2 - 1 1.0 [facility] Erythrocytes [#/volume] in Blood by Automated count 4.66 10^6/uL 4. 20 - 5.40 [facility] Hemoglobin [Mass/volume] in Blood 14.7 g/dL 12.0 - 16.0 [facility] Hematocrit [Volume Fraction] of Blood by Automated count 41.7 % 3 7.0 - 47.0 [facility] Erythrocyte mean corpuscular volume [Entitic volume] by Auto mated count 89.5 fL 81.0 - 101 [facility] Erythrocyte mean corpuscular hemoglobin [Entitic mass] by Automated count 31.5 pg 27.0 - 34.0 [facility] Erythrocyte mean corpuscular hemoglobin concentration [Mass/volume] by Automated count 35.3 g/dL 31.0 - 36.0 [facility] Erythrocyte distribution width [Ratio] by Automated count 12.5 % 11.5 - 14.5 [facility] Platelets [#/volume] in Blood by Automated count 206 10^3/uL 150 - 45 0 [facility] Platelet mean volume [Entitic volume] in Blood by Automated count 10.9 fL 7.4 - 10.4 H [facility] Neutrophils/100 leukocytes in Blood by Automated count 42.6 % 37. 0 - 80.0 [facility] Lymphocytes/100 leukocytes in Blood by Manual count 42.4 % 25.0 - 40.0 H [facility] Monocytes/100 leukocytes in Blood by Automated count 9.0 % 3.0 - 8.0 H [facility] Eosinophils/100 leukocytes in Blood by Automated count 4.8 % 0.0 - 7.0 [facility] Basophils/100 leukocytes in Blood by Automated count 0.6 % 0.0 - 2.5 [facility] %IG 0.6 % 0.0 - 0.0 [facility] %NRBC 0.0 % 0.0 - 0.0 [facility] al Neutrophils [#/volume] in Blood by Automated count 3.87 10^3/uL 2.00 - 6.90 [facility] Lymphocytes [#/volume] in Blood by Automated count 3.83 10^3/uL 0.60 - 3.40 H [facility] Monocytes [#/volume] in Blood by Automated count 0.81 10^3/uL 0.00 - 0.90 [facility] Eosinophils [#/volume] in Blood by Automated count 0.43 10^3/uL 0.00 - 0.70 [facility] Basophils [#/volume] in Blood by Automated count 0.05 10^3/uL 0.00 - 0.20 [facility] #IG 0.05 10^3/uL 0.00 - 0.10 [facility] #NRBC 0.00 10^3/uL 0.00 - 0.00 [facility] ospital MANUAL DIFF NOT INDICATED [facility] RBC MORPH NOT INDICATED [facility] spital ID Date Data Source [id number] 06/27/2020 01:19:00 AM EDT [facility] 1 Medication Reconciliation Report [facility] Emergency Department [address] [place] [address] Phone #: ext [phone] 06/27/2020 01:19 Patient: EDGARDO MANZANO Sex: F [...] rce(s) Supporting Document(s) ID Date Data Source [id number] 06/27/2020 01:19:00 AM EDT [place] [address] Medication Administration Record [facility] Emergency Department [address] [place] [address] Phone #: ext [phone] 06/27/2020 01:19 Patient: EDGARDO MANZANO Sex: F : 2000 Age: 20yWeight: 71.2 kgHeight/Length: 64 inBMI: 27ALLERGIES: No Known Drug AllergyDate/Time Medication Administered Medication Ordered Name Value Range Interpretation Code Description Data Lea rce(s) Supporting Document(s) ID Date Data Source [id number] 06/27/2020 01:19:00 AM EDT [facility] 1 General Instructions [facility] Emergency Department [address] [place] [address] Phone #: ext- [phone] 06/27/2020 01:19 Patient: [...] CLINIC Respective Team Cher[place], , , [id number] [address], , [place], [address] Follow up in two days. Call for [...] good care can greatly 2 General Instructions [facility] Emergency Department [address] [place] [address] Phone #: ext- [phone] 06/27/2020 01:19 Patient: [...] providers about all of the prescription and varq-xpc-tuxsgjz medicines, and supplements you take. Certain supplements [...] to see if it can help. [employer] operates a toll-free ADA information line at: [phone] (Voice); or [phone] (TTY). It can help you locate a local office.Follow-up careFollow up with your healthcare provider or therapist as advised. They can help you to find ways toimprove your life.Call [phone] if any of these happen: You have suicidal thoughts, a plan, and the means to harm yourself, or serious thoughts of hurting someone else 3 General Instructions [facility] Emergency Department [address] [place] [address] Phone #: ext- [phone] 06/27/2020 01:19 Patient: EDGARDO MANZANO Sex: F : 2000 Age: 20y Trouble breathing Confusion [...] another Being unable to care for yourself [facility]. [address] [place] [address]. All rights reserved. This information is not intended as asubstitute for professional medical care. Always follow your healthcare professional's instructions. You have been given the following additional information: Bipolar Disorder(Electronically signed by Elliot Elise 06/27/2020 03:45) Name Value Range Interpretation Code Description Data Lea rce(s) Supporting Document(s) ID Date Data Source [id number] 06/27/2020 01:19:00 AM EDT [facility] 1 Clinical Report - Nurses [facility] Emergency Department [address] [place] [address] Phone #: ext- [phone] 06/27/2020 01:19 Patient: [...] to arrival. She describes feelings of depression.Treatment SUPERVISOR BONDING:None. --01:40 06/27/20 Lisa Lee R.NMilagro01:33 06/27/20. BP: 133/99. HR: 80. RR: 16. [...] The patient 2 Clinical Report - Nurses [facility] Emergency Department [address] [place] [address] Phone #: ext- [phone] 06/27/2020 01:19 Patient: EDGARDO MANZANO Sex: F [...] No skin integrity risk identified. --01:40 06/27/20 iLsa Lee R.N. FAMILY HX: Sister(s): Borderline personality disorder. --02:36 06/27/20 Elliot Elise.PHYSICAL CEYNEDSNQJ89:[id number] 06/27/20. Ambulatory to room. Patient gowned.GENERAL / [...] 15 minutes. 3 Clinical Report - Nurses [facility] Emergency Department [address] [place] [address] Phone #: ext- [phone] 06/27/2020 01:19 Patient: [...] Patient verbalized understanding. Written instructions provided in [place]. The patient was discharged by the physician. She was discharged home and accompanied by circuits engineer. She left ambulatory and via private vehicle. Assistant Producer driving. --03:53 06/27/20 Lisa Lee R.N. 03:50 06/27/20. BP: deferred. HR: deferred. RR: deferred. O2 saturation: deferred. Temp: deferred. Pain level now deferred. --03:53 06/27/20 Lisa Lee R.N.Locked/Released at 06/27/2020 04:25 by Lisa Lee R.N. Name Value Range Interpretation Code Description Data Lea rce(s) Supporting Document(s) ID Date Data Source [id number] 06/27/2020 01:19:00 AM EDT [facility] 1 Clinical Report - Physicians/Mid Levels [facility] Emergency Department [address] [place] [address] Phone #: ext- [phone] 06/27/2020 01:19 Patient: [...] Allergy. 2 Clinical Report - Physicians/Mid Levels [facility] Emergency Department [address] [place] [address] Phone #: ext- [phone] 06/27/2020 01:19 Patient: EDGARDO MANZANO Sex: F [...] arise. 3 Clinical Report - Physicians/Mid Levels [facility] Emergency Department [address] [place] [address] Phone #: ext- [phone] 06/27/2020 01:19 Patient: EDGARDO MANZANO Sex: F : 2000 Age: 20y Understanding of the discharge instructions verbalized by patient. Follow- up with: [facility] Respective Team Cheryl [place], , , [id number] [address], , [place], [address] Follow up in two days. Call for an appointment.(Electronically signed by Elliot Elise 06/27/2020 03:45) Name Value Range Interpretation Code Description Data Lea rce(s) Supporting Document(s) ID Date Data Source [id number] 06/20/2020 09:40:00 AM EDT [facility] Name Value Range Interpretation Code Description Data Lea rce(s) Supporting Document(s) SARS coronavirus 2 RNA Not Detected [facility] [place] This lab was ordered by [facility] and reported by [facility]. ID Date Data Source [id number] 05/23/2020 07:02:00 PM EDT [facility] 1 Medication Reconciliation Report [facility] Emergency Department [address] [place] [address] Phone #: ext- [phone] 05/23/2020 18:53 Patient: [...] rce(s) Supporting Document(s) ID Date Data Source [id number] 05/23/2020 07:02:00 PM EDT [facility] 1 Medication Administration Record [facility] Emergency Department [address] [place] [address] Phone #: ext- [phone] 05/23/2020 18:53 Patient: EDGARDO MANZANO Sex: F : 2000 Age: 20yWeight: 71.2 kgHeight/Length: 64 inBMI: 27ALLERGIES: NoneDate/Time Medication Administered Medication Ordered Name Value Range Interpretation Code Description Data Lea rce(s) Supporting Document(s) ID Date Data Source [id number] 05/23/2020 07:02:00 PM EDT [facility] 1 Clinical Report - Nurses [facility] Emergency Department [address] [place] [address] Phone #: ext- [phone] 05/23/2020 18:53 Patient: EDGARDO MANZANO Sex: F : 2000 Age: 20yTRIAGEArrived by private vehicle. Historian: patient. Unaccompanied. ( pt states that she is anxious but doesnot appear to be at this time).Acuity: LEVEL 5.Chief Complaint: ANXIETY and (anxiety).Alert. No acute distress.Onset: today. The patient has had anxiety.Treatment SUPERVISOR BONDING:None.SEPSIS SCREEN: SIRS SCREEN NEGATIVE. SEPSIS SCREEN NEGATIVE. [...] MRSA. Staff 2 Clinical Report - Nurses [facility] Emergency Department [address] [place] [address] Phone #: ext- [phone] 05/23/2020 18:53 Patient: [...] Christian R.N. 3 Clinical Report - Nurses [facility] Emergency Department [address] [place] [address] Phone #: ext- [phone] 05/23/2020 18:53 Patient: EDGARDO MANZANO Sex: F : 2000 Age: 20yLocked/Released at 05/23/2020 19:12 by Hanane Christian R.N. Name Value Range Interpretation Code Description Data Lea rce(s) Supporting Document(s) ID Date Data Source [id number] 05/12/2020 02:24:00 AM [place] [address] Medication Reconciliation Report [facility] Emergency Department [address] [place] [address] Phone #: ext- [phone] 05/12/2020 02:23 Patient: EDGARDO MANZANO Sex: F [...] rce(s) Supporting Document(s) ID Date Data Source [id number] 05/12/2020 02:24:00 AM [facility] 1 Medication Administration Record [facility] Emergency Department [address] [place] [address] Phone #: ext- [phone] 05/12/2020 02:23 Patient: EDGARDO MANZANO Sex: F : 2000 Age: 20yWeight: 63.5 kgHeight/Length: 64 inBMI: 24ALLERGIES: No Known Drug AllergyDate/Time Medication Administered Medication Ordered Name Value Range Interpretation Code Description Data Lea rce(s) Supporting Document(s) ID Date Data Source [id number] 05/12/2020 02:24:00 AM EST [facility] 1 General Instructions [facility] Emergency Department [address] [place] [address] Phone #: ext- [phone] 05/12/2020 02:23 Patient: EDGARDO MANZANO Sex: F [...] Feeling depressed or withdrawn 2 General Instructions [facility] Emergency Department [address] [place] [address] Phone #: ext- [phone] 05/12/2020 02 :23 Patient: EDGARDO MANZANO Sex: F : 2000 Age: 20y Loss [...] providers about all of the prescription and qgnq-sct-exdztwu medicines, vitamins, and supplements you take. Certain [...] with your healthcare provider, or as advised.Call [phone] if you: Have suicidal thoughts, a suicide plan, and the means to carry out the plan; or serious 3 General Instructions [facility] Emergency Department [address] [place] [address] Phone #: ext- [phone] 05/12/2020 02:23 Patient: [...] behavior and ask you to seek help [employer]. [address] [place] [address]. All rights reserved. This information is not intended as asubstitute for professional medical care. Always follow your healthcare professional's instructions. You have been given the following additional information: Depression(Electronically signed by Elliot Elise 05/12/2020 03:26) Name Value Range Interpretation Code Description Data Lea rce(s) Supporting Document(s) ID Date Data Source [id number] 05/12/2020 02:24:00 AM EST [facility] 1 Clinical Report - Nurses [facility] Emergency Department [address] [place] [address] Phone #: ext- [phone] 05/12/2020 02:23 Patient: [...] SORE THROAT.Alert. No acute distress.Onset. (4 weeks).Treatment SUPERVISOR BONDING:None.SEPSIS SCREEN: SIRS SCREEN NEGATIVE. SEPSIS SCREEN NEGATIVE. [...] in your 2 Clinical Report - Nurses [facility] Emergency Department [address] [place] [address] Phone #: ext- [phone] 05/12/2020 02:23 Patient: [...] Patient verbalized understanding. Written instructions provided in [place]. No medication instructions or treatment instructions. The [...] on room 3 Clinical Report - Nurses [facility] Emergency Department [address] [place] [address] Phone #: ext- [phone] 05/12/2020 02:23 Patient: EDGARDO MANZANO Sex: F : 2000 Age: 20y air. Temp: 97.8 F (oral). Pain level now: 0/10. --03:32 05/12/20 King Gonsalez.Locked/Released at 05/12/2020 03:32 by King Gonsalez Name Value Range Interpretation Code Description Data Lea rce(s) Supporting Document(s) ID Date Data Source [id number] 05/12/2020 02:24:00 AM [facility] 1 Clinical Report - Physicians/Mid Levels [facility] Emergency Department [address] [place] [address] Phone #: ext- [phone] 05/12/2020 02:23 Patient: EDGARDO MANZANO Sex: F [...] was admitted one time last year in [place] for depression. Patient feels alone sometimes and gets frustrated. Patient was on Aderall for ADD in high school. Patient already seen at [facility] and is connected to therapist and psychiatrist. [...] stay. 2 Clinical Report - Physicians/Mid Levels [facility] Emergency Department [address] [place] [address] Phone #: ext- [phone] 05/12/2020 02:23 ------ [...] arise. 3 Clinical Report - Physicians/Mid Levels [facility] Emergency Department [address] [place] [address] Phone #: ext- [phone] 05/12/2020 02:23 Patient: EDGARDO MANZANO Sex: F : 2000 Age: 20y Understanding of the discharge instructions verbalized. Follow-up with: Follow up in two days if not well.(Electronically signed by Elliot Elise 05/12/2020 03:26) Name Value Range Interpretation Code Description Data Lea rce(s) Supporting Document(s) Procedure Social History No Information
[2020-12-25 22:02] LABS: ACETAMINOPHEN LEVEL < 2.0 UG/ML (10.0-30.0); ALBUMIN 4.3 GM/DL (3.2-5.2); ALT/SGPT 26 U/L (12-78); BILIRUBIN,DIRECT 0.1 MG/DL (0.0-0.2); BILIRUBIN,TOTAL 0.4 MG/DL (0.2-1.0); BLOOD UREA NITROGEN 15 MG/DL (7-18); CALCIUM LEVEL 9.6 MG/DL (8.5-10.1); CARBON DIOXIDE LEVEL 24 MEQ/L (21-32); CHLORIDE LEVEL 107 MEQ/L (98-107); CREATININE FOR GFR 0.84 MG/DL (0.55-1.30); ETHYL ALCOHOL (ETHANOL) 0.003 % (0.000-0.010); GLOMERULAR FILTRATION RATE > 60.0 (>60); GLUCOSE, FASTING 86 MG/DL (70-100); POTASSIUM SERUM 3.9 MEQ/L (3.5-5.1); SALICYLATE LEVEL < 1.7 MG/DL (5.0-30.0); SODIUM LEVEL 136 MEQ/L (136-145); TOTAL PROTEIN 8.3 GM/DL (6.4-8.2)
[2020-12-25 22:59] LABS: AMPHETAMINES LEVEL URINE NEGATIVE (NEGATIVE); BARBITURATES URINE NEGATIVE (NEGATIVE); BENZODIAZEPINES URINE NEGATIVE (NEGATIVE); CANNABINOIDS URINE NEGATIVE (NEGATIVE); COCAINE METABOLITE URINE NEGATIVE (NEGATIVE); METHADONE URINE NEGATIVE (NEGATIVE); OPIATES URINE NEGATIVE (NEGATIVE); PHENCYCLIDINE URINE NEGATIVE (NEGATIVE)
[2020-12-25 23:08] LABS: RSV AMPLIFICATION NEGATIVE (NEGATIVE)
[2020-12-26] MEDS ORDERED: CETI10TA4 PO (00:02)
[2020-12-26] MEDS ORDERED: MUCI600T31 PO (00:02)
[2020-12-26] MEDS ORDERED: FLON1SPR (00:02)
[2020-12-26] MEDS ORDERED: HOME MED LIST COMPLETE! XX SCH (00:05)
[2020-12-26] MEDS ORDERED: ACETAMINOPHEN TAB 650MG DOSE (2X325MG) PO ONE (00:55)
[2020-12-26] MEDS ORDERED: hydrOXYzine 50 MG TAB PO ONE (00:55)
[2020-12-26] MEDS ORDERED: SERTRALINE HCL 50 MG TAB PO ONE (00:55)
[2020-12-26] MEDS ORDERED: MOM 30ML SUSPENSION UDC PO PRN (01:15)
[2020-12-26] MEDS ORDERED: traZODone 50 MG TAB PO PRN (01:15)
[2020-12-26] MEDS ORDERED: MAALOX 30 ML SUSP *UDC PO PRN (01:15)
[2020-12-26] MEDS ORDERED: ACETAMINOPHEN TAB 650MG DOSE (2X325MG) PO PRN (01:15)
--- OUTSIDE RECORDS SUMMARY | 2020-12-26 01:59 | CCD ---
Author Author [facility] Organization [facility] Address Unknown Phone Unavailable Care Team Providers Care Concrete Tile Machine Operator Name Role Phone AMRIK, F TOBY DO [...] Unavailable AMRIK, F TOBY DO Unavailable Unavailable ARMIK, F TOBY DO Unavailable Unavailable AMRIK, F [...] is protected by Article 27-F of the [facility] Public Health law. If you continue you may have access to information: Regarding HIV / AIDS; Provided by facilities licensed or operated by the [facility] Office of Mental Health; or Provided by the [facility] Office for People With Developmental Disabilities. If such information is present, then the following [facility] mandated warning applies: This information has [...] PM EDT - 07/08/2020 06:56:00 AM EDT [facility] Patient discharged. Emergency Attender: Elliot Elise MDConsultant: STAFF NON 06/27/2020 01:19:00 AM EDT - 06/27/2020 03:27:00 AM EDT [facility] Patient discharged. Emergency Attender: NALINI LANDISConsultant: STAFF NON 05/23/2020 07:02:00 PM EDT - 05/23/2020 07:06:00 PM EDT [facility] ital Patient discharged. Emergency Attender: Elliot Arik MDConsultant: STAFF NON 05/12/2020 02:24:00 AM EST - 05/12/2020 03:31:00 AM [facility] Patient discharged. Medications No Information Insurance Providers Payer name Policy type / Coverage type Policy ID Covered libertarian ID Covered libertarian's relationship to tristan Policy Tristan Plan Information [facility] [employer] [id number] SP [id number] [facility] [employer] - O/P [id number] 18 [id number] Problems, Conditions, and Diagnoses Code Display Name Description Problem Type Effective Dates Data Source(s) Y929 [address] or not applicable Unspecified place or not applicable Diagnosis 07/07/2020 11:07:00 PM EDT [facility] [id number] Intentional self-harm by other specified means, initial encounter Intentional self-harm by other specified means, initial encounter Diagnosis 07/07/2020 11:07:00 PM EDT [facility] [id number] CONTACT WITH AND SUSPECTED EXPOSURE TO C OVID-19 CONTACT WITH AND SUSPECTED EXPOSURE TO COVID-19 Diagnosis 07/07/2020 11:07:00 PM EDT [facility] Y906 Blood alcohol level of 120-199 mg/100 ml Blood alcohol level of 120-199 mg/100 ml Diagnosis 07/07/2020 11:07:00 PM EDT [facility] [id number] Laceration without foreign body of left wrist, initial encounter Laceration without foreign body of left wrist, initial encounter Diagnosis 07/07/2020 11:07:00 PM EDT [facility] B53484 Nicotine dependence, other tobacco produ ct, uncomplicated Nicotine dependence, other tobacco product, uncomplicated Diagnosis 07/07 11:07:00 PM EDT [facility] M27143 Alcohol abuse with intoxication, uncompl icated Alcohol abuse with intoxication, uncomplicated Diagnosis 07/07/2020 11:07:00 PM EDT [facility] 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, single episod e, 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, single episode, severe with psychotic features Diagnosis 07/07/2020 11:07:00 PM EDT [facility] T35357 Suicidal ideations Suicidal ideations Diagnosis 09/2020 11:07:00 PM EDT [facility] F330 Major depressive disorder, recurrent, mi ld Major depressive disorder, recurrent, mild Diagnosis 06/27/2020 01:19:00 AM EDT [facility] F419 Anxiety disorder, unspecified Anxiety disorder, unspec ified Diagnosis 06/27/2020 01:19:00 AM EDT [facility] Z5321 Procedure and treatment not carried out due to patient leaving prior to being seen by health care provider Procedure and treatment not carried out due to patient leaving prior to being seen by health care provider Diagnosis 05/23/2020 07:02:00 PM EDT [facility] F329 Major depressive disorder, single episod e, unspecified Major depressive disorder, single episode, unspecified Diagnosis 05/12/2020 02:24:00 AM [facility] Surgeries/Procedures No Information Results ID Date Data Source [id number] 12/10/2020 01:59:00 PM EDT [facility] Name Value Range Interpretation Code Description Data Lea rce(s) Supporting Document(s) SARS coronavirus 2 RNA [Presence] in Res piratory specimen by CHIN with probe detection NEGATIVE [facility] This lab was ordered by [facility] a nd reported by [facility]. ID Date Data Source [id number] 11/21/2020 04:51:00 AM EDT [facility] Name Value Range Interpretation Code Description Data Lea rce(s) Supporting Document(s) SARS coronavirus 2 RNA [Presence] in Res piratory specimen by CHIN with probe detection NEGATIVE [facility] This lab was ordered by [facility] a nd reported by [facility]. ID Date Data Source [id number] 07/08/2020 01:07:00 PM EDT [facility] [address] [place] [address] RESPIRATORY CARE REPORT ==== ---------NAME------- NUMBER SEX AGE ADMIT DISC. XRAY# F/C MARK Wetzel [id number] F 07/07/20 07/08/20 [id number] SB4 E/R DATE OF : 2000 M/R# [id number] #: [id number] TR-02 LOCATION: EMERGENCY DEPT EKG 50386 COMP LETE:07/08/20 01:43 AJP 80278 PHYSICIAN: AMRIK ANTOINE Name Value Range Interpretation Code Description Data Lea rce(s) Supporting Document(s) ID Date Data Source [id number] 07/07/2020 11:07:00 PM EDT [facility] 1 OrderSheet [facility] Emergency Department [address] [place] [address] Phone #: ext- [phone] 07/07/2020 22:48 Patient: [...] CDC) Physician; King Starks(07/07/2020) (First 2 OrderSheet [facility] Emergency Department [address] [place] [address] Phone #: ext- [phone] 07/07/2020 22:48 Patient: [...] InitialedEKG 23:04 07/07/2020 23:15 Toby Gonsalez Physician;Transfer: ([facility]) 06:40 07/08/2020 06:44 Toby Heredia R.N. Physician;[Electronically signed by Toby Elizabeth (06:50 07/08/2020 )][Electronically signed by Ivory Heredia R.N. (06:56 07/08/2020)][Electronically locked by Ivory Heredia R.N. (06:56 07/08/2020)] Name Value Range Interpretation Code Description Data Lea rce(s) Supporting Document(s) ID Date Data Source [id number] 07/07/2020 11:07:00 PM EDT [facility] 1 Medication Reconciliation Report [facility] Emergency Department [address] [place] [address] Phone #: ext- [phone] 07/07/2020 22:48 Patient: [...] rce(s) Supporting Document(s) ID Date Data Source [id number] 07/07/2020 11:07:00 PM EDT [facility] 1 Medication Administration Record [facility] Emergency Department [address] [place] [address] Phone #: ext- [phone] 07/07/2020 22:48 Patient: [...] rce(s) Supporting Document(s) ID Date Data Source [id number] 07/07/2020 11:07:00 PM EDT [facility] 1 General Instructions [facility] Emergency Department [address] [place] [address] Phone #: ext- [phone] 07/07/2020 22:48 Patient: [...] rce(s) Supporting Document(s) ID Date Data Source [id number] 07/07/2020 11:07:00 PM EDT [facility] 1 Clinical Report - Nurses [facility] Emergency Department [address] [place] [address] Phone #: ext- [phone] 07/07/2020 22:48 Patient: EDGARDO MANZANO Sex: F : 2000 Age: 20yTRIAGEArrived by private vehicle. Historian: patient. ( Patient states SI/HI, emotional distress due to personalstress.).Acuity: LEVEL 2.Chief Complaint: DEPRESSION and SUICIDAL THOUGHTS and THOUGHTS OF HARMING SELF andHOMICIDAL THOUGHTS.Alert. No acute distress.Onset: today.Treatment SOAKER MEAT:None.SEPSIS SCREEN: SIRS SCREEN NEGATIVE. SEPSIS SCREEN NEGATIVE. [...] because you 2 Clinical Report - Nurses [facility] Emergency Department [address] [place] [address] Phone #: ext- [phone] 07/07/2020 22:48 Patient: [...] Heredia R.N. 3 Clinical Report - Nurses [facility] Emergency Department [address] [place] [address] Phone #: ext- [phone] 07/07/2020 22:48 Patient: EDGARDO MANZANO Sex: F [...] care. Pt requesting to use bathroom. Nursing Mental Health Coordinator with pt for 1:1. Pt had lockedherself [...] and she hasreturned with a member from [place] back into the bathroom. She was given a field test for alcohol bythe police but she is currently still at 1.1. As the night has progressed she has become difficult to redirect.At this moment she is in the bathroom with an assigned soldier. We continue to await medical clearance fortransfer to [facility] for a psychiatric evaluation.). --01:59 07/08/20 Mora [...] with pt. Awaiting to hear back from [facility] to see if she will be accepting for psych unit.).--05:07 07/08/20 Ivory Heredia R.N.The patient is calm and resting quietly. ( Patient walked outside with commander for "fresh air". MDPalumbo okay with pt going outside with commander. Pt remains visible in outside camera. Pt walked backin onto stretcher with commander, remains calm and quiet. Awaiting to hear back from [facility] at this time.). 4 Clinical Report - Nurses [facility] Emergency Department [address] [place] [address] Phone #: ext- [phone] 07/07/2020 22:48 Patient: EDGARDO MANZANO Sex: F [...] awaiting for their arrival. Attempting to get [facility] to accept pt with PD as pt [...] 07/08/20 King Gonsalez.DISPOSITION / DISCHARGE Transferred to [facility]. Visit overview, summary of care (CCDA), Emtala forms and Face Sheet provided. Transported via (Pt being transfered to [facility] with PD). Report was given to a nurse via a phone call. Report included information regarding patient's care, treatment, allergies and condition including: recent changes and anticipated changes, current vital signs and abnormal labs. Report included treatment information regarding medications given or pending. All questions were answered. Report was acknowledged and care was transferred. (GURPREET Leija at [facility]). Patient's personal items include, PD took valuables with pt to be transfered to [facility]. --06:55 07/08/20 Ivory Heredia R.N. 06:52 07/08/20. [...] Heredia R.N. 5 Clinical Report - Nurses [facility] Emergency Department [address] [place] [address] Phone #: ext- [phone] 07/07/2020 22:48 Patient: EDGARDO MANZANO Sex: Rashard : 2000 Age: 20y Name Value Range Interpretation Code Description Data Lea rce(s) Supporting Document(s) ID Date Data Source [id number] 07/07/2020 11:07:00 PM EDT [facility] 1 Clinical Report - Physicians/Mid Levels [facility] Emergency Department [address] [place] [address] Phone #: ext- [phone] 07/07/2020 22:48 Patient: [...] Heart sounds normal. 2 Clinical Report - Physicians/[facility] Emergency Department [address] [place] [address] Phone #: ext- [phone] 07/07/2020 22:48 Patient: EDGARDO MANZANO Sex: F [...] EKGEKG: Normal EKG. Normal sinus rhythm. Normal WA interval. Normal QRS complexes. Normal STs and Twaves. No ectopy.Laboratory Tests: Laboratory tests have been ordered, with results reviewed and considered in themedical decision making process. COVID-19 CAH: (CUONG: 07/08/2020 03:31) ( [facility]08[facility] 04:02[facility] Final results Test Result Flag [...] CBC w Diff: (CUONG: 07/07/2020 23:10) ( [facility] 07/07/2020 23:26) Final results Test Result [...] 0.20) 3 Clinical Report - Physicians/Mid Levels [facility] Emergency Department [address] [place] [address] Phone #: ext- [phone] 07/07/2020 22:48 Patient: [...] Male GFR Interprentation 20-49 yrs >60 mL/min Luuzqc10-14 yrs >56 mL/min Normal 60- 69 yrs >49 mL/min Normal 70-79yrs>42 mL/min Normal 80 and above >35 mL/min Normal Female GFRInterpretation 20-39 yrs >60 mL/min Normal 40-49 yrs >58 mL/minNormal 50-59 yrs >51 mL/min Normal 60-69 yrs >45 mL/min Eulteo94-14 yrs >39 mL/min Normal 80 and above >32 mL/min NormalETOH: (CUONG: 07/07/2020 23:10) ( IdgRcvd 07/07/2020 23:42) Final results Test Result Flag [...] Clear 4 Clinical Report - Physicians/Mid Levels [facility] Emergency Department [address] [place] [address] Phone #: ext- [phone] 07/07/2020 22:48 Patient: EDGARDO MANZANO Sex: F [...] NEGATIVE (NORMAL: NEGAT { KIT LOT # [id number] ){ KIT EXP DATE [id number] ){ PROCEDURAL CONTROL VALID ) Acetaminophen Level: (CUONG: 07/07/2020 23:10) ( MsgRcvd 07/07/2020 23:37) Final results Test Result Flag Units (Reference) ACETAMINOPHEN <5.0 UG/ML (0.0 - 30.0) Salicylate Level: (CUONG: 07/07/2020 23:10) ( MsgRcvd 07/07/2020 23:42) Final results Test Result Flag Units (Reference) SALICYLATE <0.3 L mg/dL (2.0 - 20.0). 5 Clinical Report - Physicians/Mid Levels [facility] Emergency Department [address] [place] [address] Phone #: ext- [phone] 07/07/2020 22:48 Patient: EDGARDO MANZANO Sex: Rashard : [birth year] Age: 20yPROGRESS AND PROCEDURESCourse of Care: 23:07 Jul 07 2020. (Patient's history obtained and exam completed. treatment plandiscussed and agreed upon. Labs and EKG ordered. Patient agrees with transferred to [facility] for Psych.). 04:22 Jul 08 2020. (EOT at 0330 .08). 06:38 Jul 08 2020. (Patient accepted by dr Mac after report given.). 06:43 Jul 08 2020. (Patient had threatening outburst at staff. Discussed transfer to [facility] with Dr Mac he requests transfer via Police custody.). Disposition: Benefits, risks and alternatives to transfer explained to patient. Transferred to [facility]. Summary of care (CCDA) provided to via [...] rce(s) Supporting Document(s) ID Date Data Source [id number] 07/08/2020 04:21:00 AM EDT [facility] Name Value Range Interpretation Code Description Data Lea rce(s) Supporting Document(s) Ethanol [Moles/volume] in Blood 76.6 MG/DL [facility] ALCOHOL % 0.08 % 0.00 - 0.01 H [facility] *FOR MEDICAL PURPOSES ONLY * ID Date Data Source [id number] 07/08/2020 03:31:00 AM EDT [facility] Name Value Range Interpretation Code Description Data Lea rce(s) Supporting Document(s) COVID19 [facility]t NOT [facility]ECTED [facility] This lab was ordered by [facility] and reported by [facility]. ID Date Data Source [id number] 07/08/2020 04:02:00 AM EDT [facility] NOT DETECTEDNOT DETECTED{ PROC EDURAL CONTROL [...] rce(s) Supporting Document(s) ID Date Data Source [id number] 07/12/2020 09:18:00 PM EDT [facility] Name Value Range Interpretation Code Description Data Lea rce(s) Supporting Document(s) CULTURE URINE [facility] _CULTURE URINE_$$[id number]$$[id number]$$[id number]$$236504$$924659$$211914$$324628$$837865$$464864$$ 881736$$104086$$574902$$801277$$037913$$481408$$383212$$921455$$552612$$557142$$ 075563$$217923$$948486$$164064$$454439$$778529$$694159$$532723 -- Continued on next page --Patient: JOSE JUAN REYNOSO F Order: [id number] Page 2Culture: CULTURE URINE Status: Final ==== -- Continued on next page --Patient: JOSE JUAN REYNOSO F Order: [id number] Page 2Culture: CULTURE URINE Status: Prelim =====$$[id number]$$[id number] DATE/TIME: 07/12/2020 16:07Culture: CULTURE URINE Status: FinalIsolate 1 Enterococcus faecalis Flag: A . . . . . . .334,000-25,000 colony forming units per mL Previous result entered on 07/11/2020 20:26 ET Microbiological testing to rule out the presence of possible pathogensis in progress.Urine Culture,Comprehensive: [id number] faecalis Flag: AIsolate 2 Escherichia coli Flag: [...] coli Flag: APatient: JOSE JUAN Wetzel Order: [id number] Page 3Culture: CULTURE URINE Status: Final ====ISOLATE 1 Enterococcus faecalisISOLATE 2 Escherichia coli Isolate 1 Isolate 2Antibiotic REESE Int REESE IntUnits ug/mL ug/mL Amoxicillin/Clavulanic Acid Ampicillin Cefepime Ceftriaxone Cefuroxime Ciprofloxacin S S Ertapenem Gentamicin Imipenem Levofloxacin S S Meropenem Nitrofurantoin S S Penicillin S S Piperacillin/Tazobactam Tetracycline R R Tobramycin Trimethoprim/Sulfa Vancomycin S S P1 Test performed by: Melissa Frazier [facility] #: [id number] [address] [place] [address] [id number] [facility] [id number] Director : Arnol Parmar MD NPI #:Wind Farm Engineer : 07/12/20.0733.XMT.SENT REF 07/12/20.2118.XMT.SENT REF ID Date Data Source [id number] 07/07/2020 11:47:00 PM EDT [facility] Name Value Range Interpretation Code Description Data Lea rce(s) Supporting Document(s) Thyrotropin [Units/volume] in Serum or Plasma by Detec tion limit <= 0.05 mIU/L 1.42 uIU/mL 0.47 - 5.01 [facility] ID Date Data Source [id number] 07/07/2020 11:42:00 PM EDT [facility] Value Range Interpretation Code Description Data Lea rce(s) Supporting Document(s) SALICYLATE <0.3 mg/dL 2.0 - 20.0 L [facility] ID Date Data Source [id number] 07/07/2020 11:41:00 PM EDT [facility] Name Value Range Interpretation Code Description Data Lea rce(s) Supporting Document(s) Ethanol [Moles/volume] in Blood 194.0 MG/DL [facility] ALCOHOL % 0.19 % 0.00 - 0.01 H [facility] *FOR MEDICAL PURPOSES ONLY * ID Date Data Source [id number] 07/07/2020 11:41:00 PM EDT [facility] Value Range Interpretation Code Description Data Lea rce(s) Supporting Document(s) COMPREHENSIVE METABOLIC PANEL [facility] COMPREHENSIVE METABOLIC PANEL Sodium [Moles/volume] in Serum or Plasma 137 mEq/L 134 - 153 [facility] Potassium [Moles/volume] in Serum or Plasma 3.5 mEq/L 3.6 - 5.0 L [facility] Chloride [Moles/volume] in Serum or Plasma 107 mEq/L 98 - 107 [facility] Carbon dioxide, total [Moles/volume] in Serum or Plasma 18 MEQ/L 22 - 30 L [facility] Glucose [Mass/volume] in Serum or Plasma 116 MG/DL 70 - 99 H [facility] BUN 12 MG/DL 7 - 21 [facility] Creatinine [Mass/volume] in Serum or Plasma 0.9 MG/DL 0.7 - 1.5 [facility] BUN/CREAT 13 8 - 27 [facility] Protein [Mass/volume] in Serum or Plasma 7.7 G/DL 6.3 - 8.2 [facility] Albumin [Mass/volume] in Serum or Plasma 4.6 G/DL 3.9 - 5.0 [facility] Globulin [Mass/volume] in Serum by calculation 3.1 GM/DL 2.4 - 3.2 [facility] A/G RATIO 1.5 0.8 - 2.0 [facility] Calcium [Mass/volume] in Serum or Plasma 9.4 MG/DL 8.4 - 10.2 [facility] Bilirubin.total [Mass/volume] in Serum or Plasma <0.7 MG/DL 0.2 - 1.3 [facility] Alkaline phosphatase [Enzymatic activity/volume] in Serum or Plasma 60 U/L 38 - 126 [facility] Aspartate aminotransferase [Enzymatic activity/volume] in Serum or Plasma 23 U/L 5 - 40 [facility] Alanine aminotransferase [Enzymatic activity/volume] in Seru m or Plasma 14 U/L 7 - 56 [facility] Anion gap 3 in Serum or Plasma 12.0 mmol/L 8.0 - 16.0 [facility] AGE 20 yrs [facility] NON-AA GFR >60 mL/min [facility] AFR AMER GFR >60 mL/min [facility] Male GFR In terprentation [...] >32 mL/min Normal ID Date Data Source [id number] 07/07/2020 11:41:00 PM EDT [facility] Name Value Range Interpretation Code Description Data Lea rce(s) Supporting Document(s) DRUG SCREEN URINE [facility] URINE DRUG SCREEN Amphetamine [Presence] in Urine by Screen method NEGATIVE NORMAL: N EGATIVE [facility] BARBITURATES NEGATIVE NORMAL: NEGATIVE [facility] BENZO NEGATIVE NORMAL: NEGATIVE [facility] COCAINE NEGATIVE NORMAL: NEGATIVE [facility] Tetrahydrocannabinol [Presence] in Urine NEGATIVE NORMAL: NEGATIVE [facility] OPIATES NEGATIVE NORMAL: NEGATIVE [facility] Phencyclidine [Presence] in Urine by Screen method NEGATIVE NOR MAL: NEGATIVE [facility] \\BLDo\\URINE DRUG SCR EEN INTERPRETATION\\BLDx\\ THE CUTOFFF LEVELS FOR DETECTION ARE FOLLOWS: AMPHETAMINES 1000 ng/ml BARBITUARATES 200 ng/ml BENZODIAZEPINES 100 ng/ml THC 50 ng/ml PHENCYCLIDINE 25 ng/ml OPIATES 300 ng/ml COCAINE 300 ng/ml ALL POSITIVES ARE CONSIDERED PRESUMPTIVE POSITIVE CONFIRMATION WILL BE PERFORMED AT PHYSICIAN REQUEST. ID Date Data Source [id number] 07/07/2020 11:36:00 PM EDT [facility] Name Value Range Interpretation Code Description Data Lea rce(s) Supporting Document(s) URINALYSIS [facility] URINALYSIS SOURCE Clean Catch [facility] COLOR yellow NORMAL: Yellow [facility] CLARITY clear NORMAL: Clear [facility] Specific gravity of Urine by Test strip 1.010 1.001 - 1.030 [facility] pH 6.5 5 - 9 [facility] Glucose [Mass/volume] in Urine by Test strip NORM NORMAL: Negat [facility] Bilirubin.total [Presence] in Urine by Test strip NEG NORMAL: Negative [facility] Ketones [Presence] in Urine by Test strip NEG NORMAL: Negative [facility] Protein [Mass/volume] in Urine by Test strip NEG NORMAL: Negat [facility] Nitrite [Presence] in Urine by Test strip NEG NORMAL: Negative [facility] BLOOD NEG NORMAL: Negative [facility] Leukocyte esterase [Presence] in Urine by Test strip 500 RICH L: Negative [facility] Urobilinogen [Mass/volume] in Urine by Test strip NOR less azul n 1.0 mg/dL [facility] MICROSCOPIC See Below [facility] WBC 5 - 7 NORMAL: NONE SEEN A [facility] Erythrocytes [#/volume] in Urine by Test strip 0 - 1 NORMAL: NON E SEEN [facility] EPITHELIAL FEW NORMAL: NONE SEEN [facility] Bacteria [Presence] in Urine sediment by Light microscopy Tr navi NORMAL: NONE SEEN [facility] ID Date Data Source [id number] 07/07/2020 11:37:00 PM EDT [facility] Name Value Range Interpretation Code Description Data Lea rce(s) Supporting Document(s) Acetaminophen [Presence] in Urine <5.0 UG/ML 0.0 - 30.0 [facility] ID Date Data Source [id number] 07/07/2020 11:29:00 PM EDT [facility] Name Value Range Interpretation Code Description Data Lea rce(s) Supporting Document(s) HCG URINE QUAL NEGATIVE NORMAL: NEGATIVE [facility] HCG URINE QL REENTER NEGATIVE NORMAL: NEGATIVE [facility] { KIT LOT # [id number] ){ KIT EXP DATE [id number] ){ PROCEDURAL CONTROL VALID ) ID Date Data Source [id number] 07/07/2020 11:26:00 PM EDT [facility] Name Value Range Interpretation Code Description Data Lea rce(s) Supporting Document(s) CBC W/AUTOMATED DIFF [facility] COMPLETE BLOOD COUNT Leukocytes [#/volume] in Blood by Automated count 9.0 10^3/uL 4.2 - 1 1.0 [facility] Erythrocytes [#/volume] in Blood by Automated count 4.66 10^6/uL 4. 20 - 5.40 [facility] Hemoglobin [Mass/volume] in Blood 14.7 g/dL 12.0 - 16.0 [facility] Hematocrit [Volume Fraction] of Blood by Automated count 41.7 % 3 7.0 - 47.0 [facility] Erythrocyte mean corpuscular volume [Entitic volume] by Auto mated count 89.5 fL 81.0 - 101 [facility] Erythrocyte mean corpuscular hemoglobin [Entitic mass] by Automated count 31.5 pg 27.0 - 34.0 [facility] Erythrocyte mean corpuscular hemoglobin concentration [Mass/volume] by Automated count 35.3 g/dL 31.0 - 36.0 [facility] Erythrocyte distribution width [Ratio] by Automated count 12.5 % 11.5 - 14.5 [facility] Platelets [#/volume] in Blood by Automated count 206 10^3/uL 150 - 45 0 [facility] Platelet mean volume [Entitic volume] in Blood by Automated count 10.9 fL 7.4 - 10.4 H [facility] Neutrophils/100 leukocytes in Blood by Automated count 42.6 % 37. 0 - 80.0 [facility] Lymphocytes/100 leukocytes in Blood by Manual count 42.4 % 25.0 - 40.0 [facility] Monocytes/100 leukocytes in Blood by Automated count 9.0 % 3.0 - 8.0 [facility] Eosinophils/100 leukocytes in Blood by Automated count 4.8 % 0.0 - 7.0 [facility] Basophils/100 leukocytes in Blood by Automated count 0.6 % 0.0 - 2.5 [facility] %IG 0.6 % 0.0 - 0.0 [facility] %NRBC 0.0 % 0.0 - 0.0 [facility] Neutrophils [#/volume] in Blood by Automated count 3.87 10^3/uL 2.00 - 6.90 [facility] Lymphocytes [#/volume] in Blood by Automated count 3.83 10^3/uL 0.60 - 3.40 [facility] Monocytes [#/volume] in Blood by Automated count 0.81 10^3/uL 0.00 - 0.90 [facility] Eosinophils [#/volume] in Blood by Automated count 0.43 10^3/uL 0.00 - 0.70 [facility] Basophils [#/volume] in Blood by Automated count 0.05 10^3/uL 0.00 - 0.20 [facility] #IG 0.05 10^3/uL 0.00 - 0.10 [facility] H ospital #NRBC 0.00 10^3/uL 0.00 - 0.00 [facility] ospital MANUAL DIFF NOT INDICATED [facility] RBC MORPH NOT INDICATED [facility] spital ID Date Data Source [id number] 06/27/2020 01:19:00 AM EDT [facility] 1 Medication Reconciliation Report [facility] Emergency Department [address] [place] [address] Phone #: ext [phone] 06/27/2020 01:19 Patient: EDGARDO MANZANO Sex: F [...] rce(s) Supporting Document(s) ID Date Data Source [id number] 06/27/2020 01:19:00 AM EDT [place] [address] Medication Administration Record [facility] Emergency Department [address] [place] [address] Phone #: ext [phone] 06/27/2020 01:19 Patient: EDGARDO MANZANO Sex: F : 2000 Age: 20yWeight: 71.2 kgHeight/Length: 64 inBMI: 27ALLERGIES: No Known Drug AllergyDate/Time Medication Administered Medication Ordered Name Value Range Interpretation Code Description Data Lea rce(s) Supporting Document(s) ID Date Data Source [id number] 06/27/2020 01:19:00 AM EDT [facility] 1 General Instructions [facility] Emergency Department [address] [place] [address] Phone #: ext- [phone] 06/27/2020 01:19 Patient: [...] CLINIC Respective Team [place], , , [address] [address], , [place], [address] Follow up in two days. Call for [...] good care can greatly 2 General Instructions [facility] Emergency Department [address] [place] [address] Phone #: ext- [phone] 06/27/2020 01:19 Patient: [...] providers about all of the prescription and zqta-ejy-grhwobs medicines, and supplements you take. Certain supplements [...] to see if it can help. The [employer] operates a toll-free ADA information line at: 336.387.1889 (Voice); or [phone] (TTY). It can help you locate a local office.Follow-up careFollow up with your healthcare provider or therapist as advised. They can help you to find ways toimprove your life.Call [phone] if any of these happen: You have suicidal thoughts, a plan, and the means to harm yourself, or serious thoughts of hurting someone else 3 General Instructions [facility] Emergency Department [address] [place] [address] Phone #: ext- [phone] 06/27/2020 01:19 Patient: [...] another Being unable to care for yourself [employer]. [address] [place] [address]. All rights reserved. This information is not intended as asubstitute for professional medical care. Always follow your healthcare professional's instructions. You have been given the following additional information: Bipolar Disorder(Electronically signed by Elliot Elise 06/27/2020 03:45) Name Value Range Interpretation Code Description Data Lea rce(s) Supporting Document(s) ID Date Data Source [id number] 06/27/2020 01:19:00 AM EDT [facility] 1 Clinical Report - Nurses [facility] Emergency Department [address] [place] [address] Phone #: ext- [phone] 06/27/2020 01:19 Patient: [...] to arrival. She describes feelings of depression.Treatment SOAKER MEAT:None. --01:40 06/27/20 Lisa Lee R.NMilagro01:33 06/27/20. BP: [...] The patient 2 Clinical Report - Nurses [facility] Emergency Department [address] [place] [address] Phone #: ext- [phone] 06/27/2020 01:19 Patient: EDGARDO MANZANO Sex: F [...] Borderline personality disorder. --02:36 06/27/20 Elliot Elise.PHYSICAL EHNMKMEXIC59:33 06/27/20. Ambulatory to room. Patient gowned.GENERAL / [...] 15 minutes. 3 Clinical Report - Nurses [facility] Emergency Department [address] [place] [address] Phone #: ext- [phone] 06/27/2020 01:19 Patient: [...] Patient verbalized understanding. Written instructions provided in Mongolian. The patient was discharged by the physician. She was discharged home and accompanied by lay out inspector. She left ambulatory and via private vehicle. [employer] driving. --03:53 06/27/20 Lisa Lee R.N. 03:50 06/27/20. BP: deferred. HR: deferred. RR: deferred. O2 saturation: deferred. Temp: deferred. Pain level now deferred. --03:53 06/27/20 Lisa Lee R.N.Locked/Released at 06/27/2020 04:25 by Lisa Lee R.N. Name Value Range Interpretation Code Description Data Lea rce(s) Supporting Document(s) ID Date Data Source [id number] 06/27/2020 01:19:00 AM EDT [facility] 1 Clinical Report - Physicians/Mid Levels [facility] Emergency Department [address] [place] [address] Phone #: ext- [phone] 06/27/2020 01:19 Patient: [...] Allergy. 2 Clinical Report - Physicians/Mid Levels [facility] Emergency Department [address] [place] [address] Phone #: ext- [phone] 06/27/2020 01:19 Patient: EDGARDO MANZANO Sex: F [...] arise. 3 Clinical Report - Physicians/Mid Levels [facility] Emergency Department [address] [place] [address] Phone #: ext- [phone] 06/27/2020 01:19 Patient: EDGARDO MANZANO Sex: F : 2000 Age: 20y Understanding of the discharge instructions verbalized by patient. Follow- up with: [facility] Respective Team Cheryl [place], , , [address] [address], , [place], [address] Follow up in two days. Call for an appointment.(Electronically signed by Elliot Elise 06/27/2020 03:45) Name Value Range Interpretation Code Description Data Lea rce(s) Supporting Document(s) ID Date Data Source [id number] 06/20/2020 09:40:00 AM EDT [facility] Name Value Range Interpretation Code Description Data Lea rce(s) Supporting Document(s) SARS coronavirus 2 RNA Not Detected [facility] [place] This lab was ordered by [facility] and reported by [facility]. ID Date Data Source [id number] 05/23/2020 07:02:00 PM EDT [facility] 1 Medication Reconciliation Report [facility] Emergency Department [address] [place] [address] Phone #: ext- [phone] 05/23/2020 18:53 Patient: [...] rce(s) Supporting Document(s) ID Date Data Source [id number] 05/23/2020 07:02:00 PM EDT [facility] 1 Medication Administration Record [facility] Emergency Department [address] [place] [address] Phone #: ext- [phone] 05/23/2020 18:53 Patient: EDGARDO MANZANO Sex: F : 2000 Age: 20yWeight: 71.2 kgHeight/Length: 64 inBMI: 27ALLERGIES: NoneDate/Time Medication Administered Medication Ordered Name Value Range Interpretation Code Description Data Lea rce(s) Supporting Document(s) ID Date Data Source [id number] 05/23/2020 07:02:00 PM EDT [facility] 1 Clinical Report - Nurses [facility] Emergency Department [address] [place] [address] Phone #: ext- [phone] 05/23/2020 18:53 Patient: EDGARDO MANZANO Sex: F : 2000 Age: 20yTRIAGEArrived by private vehicle. Historian: patient. Unaccompanied. ( pt states that she is anxious but doesnot appear to be at this time).Acuity: LEVEL 5.Chief Complaint: ANXIETY and (anxiety).Alert. No acute distress.Onset: today. The patient has had anxiety.Treatment SOAKER MEAT:None.SEPSIS SCREEN: SIRS SCREEN NEGATIVE. SEPSIS SCREEN NEGATIVE. [...] MRSA. Staff 2 Clinical Report - Nurses [facility] Emergency Department [address] [place] [address] Phone #: ext- [phone] 05/23/2020 18:53 Patient: [...] Christian R.N. 3 Clinical Report - Nurses [facility] Emergency Department [address] [place] [address] Phone #: ext- [phone] 05/23/2020 18:53 Patient: EDGARDO MANZANO Sex: F : 2000 Age: 20yLocked/Released at 05/23/2020 19:12 by Hanane Christian R.N. Name Value Range Interpretation Code Description Data Lea rce(s) Supporting Document(s) ID Date Data Source [id number] 05/12/2020 02:24:00 AM [place] [address] Medication Reconciliation Report [facility] Emergency Department [address] [place] [address] Phone #: ext- [phone] 05/12/2020 02:23 Patient: EDGARDO MANZANO Sex: F [...] rce(s) Supporting Document(s) ID Date Data Source [id number] 05/12/2020 02:24:00 AM [facility] 1 Medication Administration Record [facility] Emergency Department [address] [place] [address] Phone #: ext- [phone] 05/12/2020 02:23 Patient: EDGARDO MANZANO Sex: F : 2000 Age: 20yWeight: 63.5 kgHeight/Length: 64 inBMI: 24ALLERGIES: No Known Drug AllergyDate/Time Medication Administered Medication Ordered Name Value Range Interpretation Code Description Data Lea rce(s) Supporting Document(s) ID Date Data Source [id number] 05/12/2020 02:24:00 AM EST [facility] 1 General Instructions [facility] Emergency Department [address] [place] [address] Phone #: ext- [phone] 05/12/2020 02:23 Patient: EDGARDO MANZANO Sex: [...] Feeling depressed or withdrawn 2 General Instructions [facility] Emergency Department [address] [place] [address] Phone #: ext- [phone] 05/12/2020 02 :23 [...] providers about all of the prescription and fhoa-rrj-epmphte medicines, vitamins, and supplements you take. Certain [...] with your healthcare provider, or as advised.Call [phone] if you: Have suicidal thoughts, a suicide plan, and the means to carry out the plan; or serious 3 General Instructions [facility] Emergency Department [address] [place] [address] Phone #: ext- [phone] 05/12/2020 02:23 Patient: [...] and ask you to seek help [employer]. [address] [place] [address]. All rights reserved. This information is not intended as asubstitute for professional medical care. Always follow your healthcare professional's instructions. You have been given the following additional information: Depression(Electronically signed by Elliot Elise 05/12/2020 03:26) Name Value Range Interpretation Code Description Data Lea rce(s) Supporting Document(s) ID Date Data Source [id number] 05/12/2020 02:24:00 AM EST [facility] 1 Clinical Report - Nurses [facility] Emergency Department [address] [place] [address] Phone #: ext- [phone] 05/12/2020 02:23 Patient: [...] SORE THROAT.Alert. No acute distress.Onset. (4 weeks).Treatment SOAKER MEAT:None.SEPSIS SCREEN: SIRS SCREEN NEGATIVE. SEPSIS SCREEN NEGATIVE. [...] in your 2 Clinical Report - Nurses [facility] Emergency Department [address] [place] [address] Phone #: ext- [phone] 05/12/2020 02:23 Patient: [...] on patient. To treatment room. --02:05/12/20 King Gosnalez.PHYSICAL ASSESSMENTAmbulatory to room.GENERAL / NEURO / PSYCH: [...] Patient verbalized understanding. Written instructions provided in Mongolian. No medication instructions or treatment instructions. The [...] on room 3 Clinical Report - Nurses [facility] Emergency Department [address] [place] [address] Phone #: ext- [phone] 05/12/2020 02:23 Patient: EDGARDO MANZANO Sex: F : 2000 Age: 20y air. Temp: 97.8 F (oral). Pain level now: 0/10. --03:32 05/12/20 King Gonsalez.Locked/Released at 05/12/2020 03:32 by King Gonsalez Name Value Range Interpretation Code Description Data Lea rce(s) Supporting Document(s) ID Date Data Source [id number] 05/12/2020 02:24:00 AM [facility] 1 Clinical Report - Physicians/Mid Levels [facility] Emergency Department [address] [place] [address] Phone #: ext- [phone] 05/12/2020 02:23 Patient: EDGARDO MANZANO Sex: F [...] was admitted one time last year in [place] for depression. Patient feels alone sometimes and gets frustrated. Patient was on Aderall for ADD in high school. Patient already seen at [facility] and is connected to therapist and psychiatrist. [...] stay. 2 Clinical Report - Physicians/Mid Levels [facility] Emergency Department [address] [place] [address] Phone #: ext- [phone] 05/12/2020 02:23 ------ [...] arise. 3 Clinical Report - Physicians/Mid Levels [facility] Emergency Department [address] [place] [address] Phone #: ext- [phone] 05/12/2020 02:23 Patient: EDGARDO MANZANO Sex: F : 2000 Age: 20y Understanding of the discharge instructions verbalized. Follow-up with: Follow up in two days if not well.(Electronically signed by Elliot Elise 05/12/2020 03:26) Name Value Range Interpretation Code Description Data Lea rce(s) Supporting Document(s) Procedure Social History No Information
[2020-12-26 03:34] VITALS: BP 131/88
[2020-12-26] MEDS: CETIRIZINE (ZyrTEC) 10 MG TAB PO SCH (09:31)
[2020-12-26] MEDS: guaiFENesin ER 600 MG TAB PO SCH ×2 (09:31→20:08)
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
[2020-12-26 16:30] VITALS: BP 108/60
[2020-12-26] MEDS: hydrOXYzine 50 MG TAB PO PRN (20:08)
[2020-12-26] MEDS: SERTRALINE HCL 50 MG TAB PO SCH (20:08)
--- NOTE | 2020-12-26 21:20 | HPEPDOC ---
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 She otherwise reports that physically she is well and has no chronic illnesses for which she takes medications for. PAST MEDICAL HISTORY: Per medical record past psychiatric history of ADD, major depressive disorder, borderline personality PAST SURGICAL HISTORY: Elective x 1 SOCIAL HISTORY: Vapes. Remote history of cannabis and acid. No recent use No alcohol FAMILY HISTORY: Mother has type 1 diabetes Father has schizophrenia REVIEW OF SYSTEMS: 10 point ROS was grossly negative PHYSICAL EXAMINATION: Vitals: see below General: Awake, alert, oriented x3. Respiratory: Clear to auscultation bilaterally with no wheezes, rales, or rhonchi. Cardiovascular: Regular rate and rhythm, with no rubs, gallops, or murmur. Abdomen: Normoactive, soft, NTND ASSESSMENT/PLAN: Suicidal ideations -Per management from the psychiatric team She does not have any other acute or chronic medical issues at this time. Please consult internal medicine if medical issues arise. Will sign off at this time. Vital Signs Vital Signs Date Time Temp Pulse Resp B/P (MAP) Pulse Ox O2 Delivery O2 Flow Rate FiO2 12/26/20 16:30 98.3 90 18 108/60 (76) 100 Room Air Laboratory Data Labs 24H Laboratory Tests 2 12/25/20 22:10: Coronavirus (COVID-19)(PCR) NEGATIVE, Influenza Type A (RT-PCR) NEGATIVE, Influenza Type B (RT-PCR) NEGATIVE, Respiratory Syncytial Virus (PCR) NEGATIVE 12/25/20 22:18: Urine Opiates Screen NEGATIVE, Urine Methadone Screen NEGATIVE, Urine Barbiturates Screen NEGATIVE, Urine Phencyclidine Screen NEGATIVE, Urine Amphetamines Screen NEGATIVE, Urine Benzodiazepines Screen NEGATIVE, Urine Cocaine Metabolite Screen NEGATIVE, Urine Cannabinoids Screen NEGATIVE Home Medications Scheduled Cetirizine HCl (Cetirizine HCl) 10 Mg Tablet, 10 MG PO DAILY Guaifenesin (Mucinex) 600 Mg Tab.er.12h, 600 MG PO BID Sertraline HCl (Sertraline HCl) 50 Mg Tablet, 50 MG PO QHS Scheduled PRN Fluticasone Propionate (Flonase Allergy Relief) 9.9 Ml Darby.susp, 1 SPRAY NA BID PRN for NASAL CONGESTION Hydroxyzine HCl (Hydroxyzine HCl) 50 Mg Tablet, 50 MG PO QHS PRN for INSOMNIA Allergies Coded Allergies: No Known Drug Allergies (Verified Allergy, Unknown, 07/08/20) A-FIB/CHADSVASC A-FIB History Current/History of A-Fib/PAF?: No Current PO Anticoag Therapy: No Age/Risk Factor Scoring CHADSVASC: CHADSVASC Response (Comments) Value Age Risk Factor Age < 65 years old 0 Gender Risk Factor Female 1 Hx of CHF No 0 Hx of HTN No 0 Hx of Stroke/TIA/or VTE No 0 Hx of Diabetes No 0 Hx of Vascular Disease No 0 Total 1 Treatment Treatment ordered: NONE Reason Anticoagulant not given: Not indicated/[id number] KENYON VARELA MD Dec 26, 2020 21:20
[2020-12-27 07:08] VITALS: BP 121/81
[2020-12-27 09:08] LABS: GC DNA AMPLIFICATION NEGATIVE (NEGATIVE)
[2020-12-27] MEDS: CETIRIZINE (ZyrTEC) 10 MG TAB PO SCH (09:28)
[2020-12-27] MEDS: guaiFENesin ER 600 MG TAB PO SCH ×2 (09:28→20:10)
[2020-12-27 09:37] LABS: HCG, SERUM QUALITATIVE NEGATIVE (NEGATIVE)
[2020-12-27 10:24] LABS: HIV 1&2 SCREEN CENTAUR NEGATIVE (NEGATIVE)
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
[2020-12-27 15:37] VITALS: BP 140/70
[2020-12-27] MEDS: SERTRALINE HCL 50 MG TAB PO SCH (20:11)
[2020-12-27] MEDS: hydrOXYzine 50 MG TAB PO PRN (20:11)
[2020-12-27] MEDS: FLUTICASONE PROP 0.05% NASAL SPRAY 16 GM (FLONASE) PRN (20:11)
[2020-12-28 06:42] VITALS: BP 134/78
[2020-12-28] MEDS: CETIRIZINE (ZyrTEC) 10 MG TAB PO SCH (08:58)
[2020-12-28] MEDS: guaiFENesin ER 600 MG TAB PO SCH ×2 (08:58→21:27)
[2020-12-28] MEDS: FLUTICASONE PROP 0.05% NASAL SPRAY 16 GM (FLONASE) PRN ×2 (08:58→21:26)
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
[2020-12-28 16:15] VITALS: BP_SYST 114; BP_SYST 135; BP_DIAS 67; BP_DIAS 68
[2020-12-28] MEDS: SERTRALINE HCL 50 MG TAB PO SCH (21:26)
[2020-12-28] MEDS: PRAZOSIN 1 MG CAP PO SCH (21:27)
[2020-12-28] MEDS: hydrOXYzine 50 MG TAB PO PRN (21:27)
[2020-12-29 07:09] VITALS: BP 125/76
[2020-12-29] MEDS: guaiFENesin ER 600 MG TAB PO SCH ×2 (08:07→20:40)
[2020-12-29] MEDS: CETIRIZINE (ZyrTEC) 10 MG TAB PO SCH (08:07)
[2020-12-29] MEDS: FLUTICASONE PROP 0.05% NASAL SPRAY 16 GM (FLONASE) PRN ×2 (08:08→20:39)
[2020-12-29 16:29] VITALS: BP 122/94
--- NOTE | 2020-12-29 19:13 | MHIPNPDOC ---
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 He is the reason I cut myself. Says found out the day that she came to the hospital that he had been seeing someone else. She didn't know that the relationship that he was in was real and that she didn't feel that it was a legitimate relationship and that he keeps a lot of secrets. She was brought in by the [employer]. States that she feels the same "not wanting to be alive, depressed." States she is feeling "sleepy and I feel really hurt." When asked about suicidal planning she refused to disclose her plans. Patient is superficial and guarded. States "people like you when its the good stuff but when you have one hiccup they don't like any of that stuff. PER ED REPORT: Pt self presents to ED stating she is actively suicidal with a plan but refuses to disclose. Pt has a Hx of Depression, ADHD, and Borderline Personality Disorder. Previously hospitalized to [facility], last admission 12/10/20 and d/c 12/13/20. Pt states," I'm here because I'm suicidal and I was looking up ways on how to kill myself, but I'm not going to tell you my plans." Pt reports struggling with suicidal thoughts for the past few days, but thoughts became worse today. Triggers include "my love of my life is having a baby with someone else." States relationship was terminated recently, but she refuses to explain in detail. In addition to SI, pt. reports having thoughts of "really harming someone" but again, refuses to divulge. TW is unable to get any additional details and is superficially cooperative at this time. According to previous admissions, pt. has a Hx of being aggressive and uncooperative, then was selectively mute at times. VITAL SIGNS: See below. NEW TEST RESULTS: None CURRENT MEDICATIONS: See below. 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 He is the reason I cut myself. Speech: Spontaneous, fluent, normal tone, rate and volume Language skills are intact Thought processes including: linear and coherent Thought content: She says her depression is an 8/10 today. Reports anxious thoughts and her anxiety is a 7/10. She says she doesn't know if she still would like to kill herself, she has thoughts about hurting other people but she says she doesn't want to say who this people are. Abstract reasoning, and computation: fair Description of associations: denies, none observed Description of abnormal or psychotic thoughts: denies, none observed. Judgment: fair Insight: fair Orientation: alert and oriented to person, place, time and situation Recent and remote memory: intact Attention span and concentration: good Language: expansive Fund of knowledge: average Mood: "Depressed" Mood Affect: Reactive, incongruent with mood although she says that she is depressed, she doesn't appear depressed or anxious DIAGNOSES: Major depressive disorder, recurrent, mild Attention deficit hyperactivity disorder per history Borderline personality disorder ASSESSMENT: She sems to have attention seeking behavior, she is very talkative, conversant about dry hair, how she needs oil to apply on her hair because she doesn't want it bto get more dry, so, it doesn't make sense that she is depressed but at the same time she is worrying aobut her appearance. MANAGEMENT PLAN: Continue with current treatment plan TIME SPENT:25 minutes. Vital Signs Vital Signs Date Time Temp Pulse Resp B/P (MAP) Pulse Ox O2 Delivery O2 Flow Rate FiO2 12/29/20 16:29 98.6 95 18 122/94 (103) 99 Room Air Current Medications Current Medications Medications (Trade) Dose Ordered Sig/[place] Route PRN Reason Start Time Stop Time Status Last Admin Dose Admin Acetaminophen (Tylenol Tab) 650 mg Q6HP PRN PO HEADACHE or MILD DISCOMFORT 12/26/20 01:15 Al Hydrox/Mg Hydrox/Simethicone (Mylanta) 30 ml Q4HP PRN PO HEARTBURN/INDIGESTION 12/26/20 01:15 Cetirizine HCl (ZyrTEC) 10 mg DAILY PO 12/26/20 09:00 12/29/20 08:07 Fluticasone Propionate (Flonase 0.05% Nasal [place]) 1 spray BID PRN NA NASAL CONGESTION 12/26/20 01:15 12/29/20 08:08 Guaifenesin (Mucinex Tab Er) 600 mg BID PO 12/26/20 09:00 12/29/20 08:07 Home Med (Home Med List Complete!) ASDIRECTED XX 12/26/20 00:05 12/26/20 00:04 DC Hydroxyzine HCl (Atarax) 50 mg QHS PRN PO INSOMNIA 12/26/20 01:15 12/28/20 21:27 Magnesium Hydroxide (Milk Of Magnesia) 30 ml DAILYPRN PRN PO CONSTIPATION 12/26/20 01:15 Prazosin HCl (Minipress) 1 mg QHS PO 12/28/20 21:00 12/28/20 21:27 Sertraline HCl (Zoloft) 50 mg QHS PO 12/26/20 21:00 12/28/20 21:26 Trazodone HCl (Desyrel) 50 mg QHSP PRN PO INSOMNIA 12/26/20 01:15 Allergies Coded Allergies: No Known Drug Allergies (Verified Allergy, Unknown, 07/08/20) SAW VILLEGAS MD Dec 29, 2020 19:02
[2020-12-29] MEDS: PRAZOSIN 1 MG CAP PO SCH (20:40)
[2020-12-29] MEDS: SERTRALINE HCL 50 MG TAB PO SCH (20:40)
[2020-12-29] MEDS: hydrOXYzine 50 MG TAB PO PRN (20:40)
[2020-12-29] MEDS: CLOTRIMAZOLE 1% TOPICAL CREAM 30GM TOP SCH (21:00)
[2020-12-30 07:16] VITALS: BP 105/57
[2020-12-30] MEDS: FLUTICASONE PROP 0.05% NASAL SPRAY 16 GM (FLONASE) PRN ×2 (08:22→20:35)
[2020-12-30] MEDS: CLOTRIMAZOLE 1% TOPICAL CREAM 30GM TOP SCH ×2 (08:23→20:35)
[2020-12-30] MEDS: guaiFENesin ER 600 MG TAB PO SCH ×2 (08:23→20:35)
[2020-12-30] MEDS: CETIRIZINE (ZyrTEC) 10 MG TAB PO SCH (08:23)
--- NOTE | 2020-12-30 15:51 | MHIPNPDOC ---
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 He is the reason I cut myself. Says found out the day that she came to the hospital that he had been seeing someone else. She didn't know that the relationship that he was in was real and that she didn't feel that it was a legitimate relationship and that he keeps a lot of secrets. She was brought in by the [employer]. States that she feels the same "not wanting to be alive, depressed." States she is feeling "sleepy and I feel really hurt." When asked about suicidal planning she refused to disclose her plans. Patient is superficial and guarded. States "people like you when its the good stuff but when you have one hiccup they don't like any of that stuff. PER ED REPORT: Pt self presents to ED stating she is actively suicidal with a plan but refuses to disclose. Pt has a Hx of Depression, ADHD, and Borderline Personality Disorder. Previously hospitalized to [facility], last admission 12/10/20 and d/c 12/13/20. Pt states," I'm here because I'm suicidal and I was looking up ways on how to kill myself, but I'm not going to tell you my plans." Pt reports struggling with suicidal thoughts for the past few days, but thoughts became worse today. Triggers include "my love of my life is having a baby with someone else." States relationship was terminated recently, but she refuses to explain in detail. In addition to SI, pt. reports having thoughts of "really harming someone" but again, refuses to divulge. TW is unable to get any additional details and is superficially cooperative at this time. According to previous admissions, pt. has a Hx of being aggressive and uncooperative, then was selectively mute at times. VITAL SIGNS: See below. NEW TEST RESULTS: None CURRENT MEDICATIONS: See below. 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 He is the reason I cut myself. Speech: Spontaneous, fluent, normal tone, rate and volume Language skills are intact Thought processes including: linear and coherent Thought content: Denies depressive/anxious thoughts, denies SI today, denies HI, denies thought delusions Abstract reasoning, and computation: fair Description of associations: denies, none observed Description of abnormal or psychotic thoughts: denies, none observed. Judgment: fair Insight: fair Orientation: alert and oriented to person, place, time and situation Recent and remote memory: intact Attention span and concentration: good Language: expansive Fund of knowledge: average Mood: "Feel good today" Mood Affect: Reactive, congruent with mood DIAGNOSES: Major depressive disorder, recurrent, mild Attention deficit hyperactivity disorder per history Borderline personality disorder ASSESSMENT: She reports feeling better, denies feeling suicidal, denies psychosis,denies HI. Responding to treatment, stable at this time MANAGEMENT PLAN: Continue with current treatment plan TIME SPENT:25 minutes. Vital Signs Vital Signs Date Time Temp Pulse Resp B/P (MAP) Pulse Ox O2 Delivery O2 Flow Rate FiO2 12/30/20 07:16 99.8 77 16 105/57 (73) 100 12/29/20 16:29 Room Air Current Medications Current Medications Medications (Trade) Dose Ordered Sig/[place] Route PRN Reason Start Time Stop Time Status Last Admin Dose Admin Acetaminophen (Tylenol Tab) 650 mg Q6HP PRN PO HEADACHE or MILD DISCOMFORT 12/26/20 01:15 Al Hydrox/Mg Hydrox/Simethicone (Mylanta) 30 ml Q4HP PRN PO HEARTBURN/INDIGESTION 12/26/20 01:15 Cetirizine HCl (ZyrTEC) 10 mg DAILY PO 12/26/20 09:00 12/30/20 08:23 Clotrimazole (Lotrimin) 1 dose BID TOP 12/29/20 21:00 12/30/20 08:23 Fluticasone Propionate (Flonase 0.05% Nasal [place]) 1 spray BID PRN NA NASAL CONGESTION 12/26/20 01:15 12/30/20 08:22 Guaifenesin (Mucinex Tab Er) 600 mg BID PO 12/26/20 09:00 12/30/20 08:23 Home Med (Home Med List Complete!) ASDIRECTED XX 12/26/20 00:05 12/26/20 00:04 DC Hydroxyzine HCl (Atarax) 50 mg QHS PRN PO INSOMNIA 12/26/20 01:15 12/29/20 20:40 Magnesium Hydroxide (Milk Of Magnesia) 30 ml DAILYPRN PRN PO CONSTIPATION 12/26/20 01:15 Prazosin HCl (Minipress) 1 mg QHS PO 12/28/20 21:00 12/29/20 20:40 Sertraline HCl (Zoloft) 50 mg QHS PO 12/26/20 21:00 12/29/20 20:40 Trazodone HCl (Desyrel) 50 mg QHSP PRN PO INSOMNIA 12/26/20 01:15 Allergies Coded Allergies: No Known Drug Allergies (Verified Allergy, Unknown, 07/08/20) SAW VILLEGAS MD Dec 30, 2020 12:37
[2020-12-30 16:31] VITALS: BP 131/83
[2020-12-30] MEDS: hydrOXYzine 50 MG TAB PO PRN (20:35)
[2020-12-30] MEDS: SERTRALINE HCL 50 MG TAB PO SCH (20:35)
[2020-12-30] MEDS: PRAZOSIN 1 MG CAP PO SCH (20:35)
[2020-12-31] MEDS: guaiFENesin ER 600 MG TAB PO SCH ×2 (09:35→20:26)
[2020-12-31] MEDS: CETIRIZINE (ZyrTEC) 10 MG TAB PO SCH (09:35)
[2020-12-31] MEDS: CLOTRIMAZOLE 1% TOPICAL CREAM 30GM TOP SCH ×2 (09:36→20:27)
[2020-12-31] MEDS: FLUTICASONE PROP 0.05% NASAL SPRAY 16 GM (FLONASE) PRN (09:36)
--- NOTE | 2020-12-31 10:56 | MHIPNPDOC ---
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 He is the reason I cut myself. Says found out the day that she came to the hospital that he had been seeing someone else. She didn't know that the relationship that he was in was real and that she didn't feel that it was a legitimate relationship and that he keeps a lot of secrets. She was brought in by the [employer]. States that she feels the same "not wanting to be alive, depressed." States she is feeling "sleepy and I feel really hurt." When asked about suicidal planning she refused to disclose her plans. Patient is superficial and guarded. States "people like you when its the good stuff but when you have one hiccup they don't like any of that stuff. PER ED REPORT: Pt self presents to ED stating she is actively suicidal with a plan but refuses to disclose. Pt has a Hx of Depression, ADHD, and Borderline Personality Disorder. Previously hospitalized to [facility], last admission 12/10/20 and d/c 12/13/20. Pt states," I'm here because I'm suicidal and I was looking up ways on how to kill myself, but I'm not going to tell you my plans." Pt reports struggling with suicidal thoughts for the past few days, but thoughts became worse today. Triggers include "my love of my life is having a baby with someone else." States relationship was terminated recently, but she refuses to explain in detail. In addition to SI, pt. reports having thoughts of "really harming someone" but again, refuses to divulge. TW is unable to get any additional details and is superficially cooperative at this time. According to previous admissions, pt. has a Hx of being aggressive and uncooperative, then was selectively mute at times. VITAL SIGNS: See below. NEW TEST RESULTS: None CURRENT MEDICATIONS: See below. 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 Judgment: fair Insight: fair Orientation: alert and oriented to person, place, time and situation Recent and remote memory: intact Attention span and concentration: good Language: expansive Fund of knowledge: average Mood: Euthymic Mood Affect: Reactive, congruent with mood DIAGNOSES: Major depressive disorder, recurrent, mild Attention deficit hyperactivity disorder per history Borderline personality disorder ASSESSMENT: Per staff patient is improving. States over the weekend that she had suicidal planning but no intent. She had refused to discuss her plans with the service writer advisor. Patient is refusing to meet with provider at this time. Provider speculates that patient does not want to be seen as she does not want to have a discussion about being discharged. Patient is secondary gain to this admission is that she is facing criminal charges of burglarizing someone's home. Patient is aware that her discharge was to occur today or tomorrow. She is reportedly attending groups, visible in the milieu and social with her peers. According to staff she is stable and has improved. MANAGEMENT PLAN: Continue with current treatment plan TIME SPENT:15 minutes. Vital Signs Vital Signs Date Time Temp Pulse Resp B/P (MAP) Pulse Ox O2 Delivery O2 Flow Rate FiO2 12/30/20 20:35 126/80 12/30/20 16:31 98.0 90 18 100 Room Air Current Medications Current Medications Medications (Trade) Dose Ordered Sig/[place] Route PRN Reason Start Time Stop Time Status Last Admin Dose Admin Acetaminophen (Tylenol Tab) 650 mg Q6HP PRN PO HEADACHE or MILD DISCOMFORT 12/26/20 01:15 Al Hydrox/Mg Hydrox/Simethicone (Mylanta) 30 ml Q4HP PRN PO HEARTBURN/INDIGESTION 12/26/20 01:15 Cetirizine HCl (ZyrTEC) 10 mg DAILY PO 12/26/20 09:00 12/31/20 09:35 Clotrimazole (Lotrimin) 1 dose BID TOP 12/29/20 21:00 12/31/20 09:36 Fluticasone Propionate (Flonase 0.05% Nasal [place]) 1 spray BID PRN NA NASAL CONGESTION 12/26/20 01:15 12/31/20 09:36 Guaifenesin (Mucinex Tab Er) 600 mg BID PO 12/26/20 09:00 12/31/20 09:35 Home Med (Home Med List Complete!) ASDIRECTED XX 12/26/20 00:05 12/26/20 00:04 DC Hydroxyzine HCl (Atarax) 50 mg QHS PRN PO INSOMNIA 12/26/20 01:15 12/30/20 20:35 Magnesium Hydroxide (Milk Of Magnesia) 30 ml DAILYPRN PRN PO CONSTIPATION 12/26/20 01:15 Prazosin HCl (Minipress) 1 mg QHS PO 12/28/20 21:00 12/30/20 20:35 Sertraline HCl (Zoloft) 50 mg QHS PO 12/26/20 21:00 12/30/20 20:35 Trazodone HCl (Desyrel) 50 mg QHSP PRN PO INSOMNIA 12/26/20 01:15 Allergies Coded Allergies: No Known Drug Allergies (Verified Allergy, Unknown, 07/08/20) RAMU KHAN NP Dec 31, 2020 10:56
[2020-12-31 16:07] VITALS: BP 116/64
[2020-12-31] MEDS: hydrOXYzine 50 MG TAB PO PRN (20:26)
[2020-12-31] MEDS: SERTRALINE HCL 50 MG TAB PO SCH (20:26)
[2020-12-31] MEDS: PRAZOSIN 1 MG CAP PO SCH (20:28)
[2021-01-01 07:18] VITALS: BP 110/64
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
[2021-01-01] MEDS: CETIRIZINE (ZyrTEC) 10 MG TAB PO SCH (10:37)
[2021-01-01] MEDS: guaiFENesin ER 600 MG TAB PO SCH ×2 (10:38→20:43)
[2021-01-01] MEDS: FLUTICASONE PROP 0.05% NASAL SPRAY 16 GM (FLONASE) PRN ×2 (10:38→20:43)
[2021-01-01] MEDS: CLOTRIMAZOLE 1% TOPICAL CREAM 30GM TOP SCH ×3 (10:39→21:00)
[2021-01-01 19:11] VITALS: BP 123/68
[2021-01-01] MEDS: hydrOXYzine 50 MG TAB PO PRN (20:43)
[2021-01-01] MEDS: SERTRALINE 100 MG TAB PO SCH (20:44)
[2021-01-01] MEDS: PRAZOSIN 1 MG CAP PO SCH (20:45)
[2021-01-02 06:29] VITALS: BP 105/57
[2021-01-02] MEDS: CETIRIZINE (ZyrTEC) 10 MG TAB PO SCH (08:57)
[2021-01-02] MEDS: CLOTRIMAZOLE 1% TOPICAL CREAM 30GM TOP SCH ×2 (08:57→20:30)
[2021-01-02] MEDS: guaiFENesin ER 600 MG TAB PO SCH ×2 (08:57→20:31)
[2021-01-02] MEDS: FLUTICASONE PROP 0.05% NASAL SPRAY 16 GM (FLONASE) PRN ×2 (08:59→20:33)
--- NOTE | 2021-01-02 10:38 | MHIPNPDOC ---
[facility] Progress Note Progress Note DATE OF SERVICE: 01/02/21 Psychiatry Progress Note Contacted [facility] to zoom with the patient but she refused to speak with me at this time. she told the Nurse she was asleep and didn't want to talk to me. I will contact her later to be able to assess her. Vital Signs Vital Signs Date Time Temp Pulse Resp B/P (MAP) Pulse Ox O2 Delivery O2 Flow Rate FiO2 01/02/21 06:29 97.5 79 16 105/57 (73) 99 Room Air Current Medications Current Medications Medications (Trade) Dose Ordered Sig/[place] Route PRN Reason Start Time Stop Time Status Last Admin Dose Admin Acetaminophen (Tylenol Tab) 650 mg Q6HP PRN PO HEADACHE or MILD DISCOMFORT 12/26/20 01:15 Al Hydrox/Mg Hydrox/Simethicone (Mylanta) 30 ml Q4HP PRN PO HEARTBURN/INDIGESTION 12/26/20 01:15 Cetirizine HCl (ZyrTEC) 10 mg DAILY PO 12/26/20 09:00 01/02/21 08:57 Clotrimazole (Lotrimin) 1 dose BID TOP 12/29/20 21:00 01/02/21 08:57 Fluticasone Propionate (Flonase 0.05% Nasal [place]) 1 spray BID PRN NA NASAL CONGESTION 12/26/20 01:15 01/02/21 08:59 Guaifenesin (Mucinex Tab Er) 600 mg BID PO 12/26/20 09:00 01/02/21 08:57 Home Med (Home Med List Complete!) ASDIRECTED XX 12/26/20 00:05 12/26/20 00:04 DC Hydroxyzine HCl (Atarax) 50 mg QHS PRN PO INSOMNIA 12/26/20 01:15 01/01/21 20:43 Magnesium Hydroxide (Milk Of Magnesia) 30 ml DAILYPRN PRN PO CONSTIPATION 12/26/20 01:15 Prazosin HCl (Minipress) 1 mg QHS PO 12/28/20 21:00 01/01/21 10:01 DC 12/31/20 20:28 Prazosin HCl (Minipress) 2 mg QHS PO 01/01/21 21:00 01/01/21 20:45 Sertraline HCl (Zoloft) 50 mg QHS PO 12/26/20 21:00 01/01/21 10:01 DC 12/31/20 20:26 Sertraline HCl (Zoloft) 100 mg QHS PO 01/01/21 21:00 01/01/21 20:44 Trazodone HCl (Desyrel) 50 mg QHSP PRN PO INSOMNIA 12/26/20 01:15 Allergies Coded Allergies: No Known Drug Allergies (Verified Allergy, Unknown, 07/08/20) SAW VILLEGAS MD Jan 02, 2021 10:38
[2021-01-02 18:00] VITALS: BP 124/76
[2021-01-02] MEDS: PRAZOSIN 1 MG CAP PO SCH (20:30)
[2021-01-02] MEDS: SERTRALINE 100 MG TAB PO SCH (20:30)
[2021-01-03 06:38] VITALS: BP 140/66
[2021-01-03] MEDS: CLOTRIMAZOLE 1% TOPICAL CREAM 30GM TOP SCH ×2 (09:49→20:00)
[2021-01-03] MEDS: CETIRIZINE (ZyrTEC) 10 MG TAB PO SCH (09:49)
[2021-01-03] MEDS: guaiFENesin ER 600 MG TAB PO SCH ×2 (09:49→20:01)
[2021-01-03] MEDS: FLUTICASONE PROP 0.05% NASAL SPRAY 16 GM (FLONASE) PRN ×2 (09:52→20:04)
--- NOTE | 2021-01-03 16:10 | MHIPNPDOC ---
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 She says she had the last suicidal thought 2 days ago. she denies homicidal thoughts and denies delusions but reports she feels depressed because she has to go back to [facility]. She eagerly, says she wants to be d/c'd tomorrow after this automotive service writer noticed she is not suicidal, not homicidal and not psychotic. She says she wants to be discharged because she broke a nail and she needs to have it repaired. PER ED REPORT: Pt self presents to ED stating she is actively suicidal with a plan but refuses to disclose. Pt has a Hx of Depression, ADHD, and Borderline Personality Disorder. Previously hospitalized to [facility], last admission 12/10/20 and d/c 12/13/20. Pt states," I'm here because I'm suicidal and I was looking up ways on how to kill myself, but I'm not going to tell you my plans." Pt reports struggling with suicidal thoughts for the past few days, but thoughts became worse today. Triggers include "my love of my life is having a baby with someone else." States relationship was terminated recently, but she refuses to explain in detail. In addition to SI, pt. reports having thoughts of "really harming someone" but again, refuses to divulge. TW is unable to get any additional details and is superficially cooperative at this time. According to previous admissions, pt. has a Hx of being aggressive and uncooperative, then was selectively mute at times. VITAL SIGNS: See below. NEW TEST RESULTS: None CURRENT MEDICATIONS: See below. 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 Judgment: limited Insight: limited Orientation: alert and oriented to person, place, time and situation Recent and remote memory: intact Attention span and concentration: good Language: expansive Fund of knowledge: average Mood: euthymic Affect: Reactive, congruent with mood DIAGNOSES: Major depressive disorder, recurrent, mild Attention deficit hyperactivity disorder per history Borderline personality disorder ASSESSMENT: patient is not in danger to self or others at this time, she is not psychotic, therefore she doesn't meet criteria for inpatient hospitalization. she has agreed to be discharged tomorrow after I re asses her. MANAGEMENT PLAN: Will discharge her to her [facility] tomorrow, so that she can return to . TIME SPENT:15 minutes. Vital Signs Vital Signs Date Time Temp Pulse Resp B/P (MAP) Pulse Ox O2 Delivery O2 Flow Rate FiO2 01/03/21 06:38 97.4 69 16 140/66 (90) 99 Room Air Current Medications Current Medications Medications (Trade) Dose Ordered Sig/[place] Route PRN Reason Start Time Stop Time Status Last Admin Dose Admin Acetaminophen (Tylenol Tab) 650 mg Q6HP PRN PO HEADACHE or MILD DISCOMFORT 12/26/20 01:15 01/02/21 23:46 Al Hydrox/Mg Hydrox/Simethicone (Mylanta) 30 ml Q4HP PRN PO HEARTBURN/INDIGESTION 12/26/20 01:15 Cetirizine HCl (ZyrTEC) 10 mg DAILY PO 12/26/20 09:00 01/03/21 09:49 Clotrimazole (Lotrimin) 1 dose BID TOP 12/29/20 21:00 01/03/21 09:49 Fluticasone Propionate (Flonase 0.05% Nasal [place]) 1 spray BID PRN NA NASAL CONGESTION 12/26/20 01:15 01/03/21 09:52 Guaifenesin (Mucinex Tab Er) 600 mg BID PO 12/26/20 09:00 01/03/21 09:49 Home Med (Home Med List Complete!) ASDIRECTED XX 12/26/20 00:05 12/26/20 00:04 DC Hydroxyzine HCl (Atarax) 50 mg QHS PRN PO INSOMNIA 12/26/20 01:15 01/01/21 20:43 Magnesium Hydroxide (Milk Of Magnesia) 30 ml DAILYPRN PRN PO CONSTIPATION 12/26/20 01:15 Prazosin HCl (Minipress) 1 mg QHS PO 12/28/20 21:00 01/01/21 10:01 DC 12/31/20 20:28 Prazosin HCl (Minipress) 2 mg QHS PO 01/01/21 21:00 01/02/21 20:30 Sertraline HCl (Zoloft) 50 mg QHS PO 12/26/20 21:00 01/01/21 10:01 DC 12/31/20 20:26 Sertraline HCl (Zoloft) 100 mg QHS PO 01/01/21 21:00 01/02/21 20:30 Trazodone HCl (Desyrel) 50 mg QHSP PRN PO INSOMNIA 12/26/20 01:15 Allergies Coded Allergies: No Known Drug Allergies (Verified Allergy, Unknown, 07/08/20) SAW VILLEGAS MD Jan 03, 2021 15:09
[2021-01-03 19:34] VITALS: BP 173/63
[2021-01-03 19:51] VITALS: BP 118/83
[2021-01-03] MEDS: SERTRALINE 100 MG TAB PO SCH (20:01)
[2021-01-03] MEDS: hydrOXYzine 50 MG TAB PO PRN (20:01)
[2021-01-03 20:02] VITALS: BP 118/83
[2021-01-03] MEDS: PRAZOSIN 1 MG CAP PO SCH (20:02)
[2021-01-04 06:03] VITALS: BP 108/70
[2021-01-04] MEDS: guaiFENesin ER 600 MG TAB PO SCH (08:40)
[2021-01-04] MEDS: CETIRIZINE (ZyrTEC) 10 MG TAB PO SCH (08:40)
[2021-01-04] MEDS: FLUTICASONE PROP 0.05% NASAL SPRAY 16 GM (FLONASE) PRN (08:41)
[2021-01-04] MEDS: CLOTRIMAZOLE 1% TOPICAL CREAM 30GM TOP SCH (08:41)
[2021-01-04] MEDS ORDERED: MINI1CAP PO ×2 (09:51→10:23)
[2021-01-04] MEDS ORDERED: TRAZ-252 PO ×2 (09:51→10:23)
[2021-01-04] MEDS ORDERED: ZOLO100T PO ×2 (09:51→10:23)
--- NOTE | 2021-01-04 14:00 | MHDSPDOC ---
[facility] Discharge Summary Discharge Summary DATE OF ADMISSION: Dec 26, 2020 at 01:13 DATE OF DISCHARGE: Jan 04, 2021 at 12:12 DISCHARGE DIAGNOSES: Major depressive disorder, recurrent, mild Attention deficit hyperactivity disorder per history Borderline personality disorder REASON FOR ADMISSION: As per previous notes: "pt states," I'm here because I'm suicidal and I was looking up ways on how to kill myself, but I'm not going to tell you my plans." Pt reports struggling with suicidal thoughts for the past few days, but thoughts became worse today. Triggers include "my love of my life is having a baby with someone else." States relationship was terminated recently, but she refuses to explain in detail. In addition to SI, pt reports having thoughts of "really harming someone" but again, refuses to divulge. TW is unable to get any additional details and is superficially cooperative at this time. According to previous admissions, pt has a hx of being aggressive and uncooperative, then was selectively mute at times". CONSULTANTS INVOLVED: N/A TREATMENT AND PROGRESS ON THE UNIT : Patient had good course of treatment, she did response well to Zoloft for anxiety and depression, she had a good response to Prazosin for nightmares. she still complained of suicidal ideation last Thursday but at the same time she was fixated on getting oil for her hair because it was dry. On Thursday, December 30., she said she was happy, she had not experienced suicidal thoughts. yesterday, January 03., she denied SI/HI or psychosis, but admitted to feel depressed. she said she wanted to be discharged because one of her nails broke off and needed to have it replaced. This time, today, she tells me the same thing, which shows that she is future orientated. She is not suicidal, not homicidal and not psychotic. she is stable at this time, safe to be discharged to her [facility] COURSE: As above DISCHARGE ASSESSMENT: She is not suicidal, not homicidal and not psychotic. she is stable at this time, safe to be discharged to her [facility] and go for a safety check at [place]. she is having a good response to medications, she has a safety plan in place, she would tell friends or family members if she starts having s uicidal thoughts but at this time she doesn't wish to be , she has no ideas, plans or intents of suicide, she won't have guns available because her [facility] will be making sure she is safe. MENTAL STATUS EXAMINATION ON DISCHARGE: Patient is a 20-year old female, who is alert, cooperative, dressed with hospital gown, with long sculpted nails, good hygiene. Speech is normal in r/t/v. Language skills are intact. Thought processes including: linear and coherent. Thought content: negative for SI/HI or thought delusions. Abstract reasoning, and computation: intact. Description of associations: not loose, she's not psychotic. Description of abnormal or psychotic thoughts: Denies TAV hallucinations, she's not responding to internal stimuli, she is not delusional, denies delusions, she's not suicidal or homicidal. . Judgment: Improving Insight: Improving. Orientation to x 3. Recent and remote memory: intact. Attention span and concentration: good. Language: no abnormalities observed. Fund of knowledge: average. Mood: euthymic. Affect: congruent with mood, reactive. MEDICATIONS ON DISCHARGE: Scheduled Cetirizine HCl (Cetirizine HCl) 10 Mg Tablet, 10 MG PO DAILY, (Reported) Guaifenesin (Mucinex) 600 Mg Tab.er.12h, 600 MG PO BID, (Reported) Prazosin HCl (Minipress) 1 Mg Capsule, 2 MG PO QHS for nightmares, #14 Sertraline Hcl (Zoloft) 100 Mg Tablet, 100 MG PO QHS for depression, #7 Scheduled PRN Fluticasone Propionate (Flonase Allergy Relief) 9.9 Ml [place].susp, 1 SPRAY NA BID PRN for NASAL CONGESTION, (Reported) Hydroxyzine HCl (Hydroxyzine HCl) 50 Mg Tablet, 50 MG PO QHS PRN for INSOMNIA, (Reported) Trazodone HCl (Trazodone HCl) 50 Mg Tablet, 50 MG PO QHSP PRN for INSOMNIA, #7 PLAN/FOLLOWUP ARRANGEMENTS: Will follow up at [facility] The amount of time spent in the coordination of care for this patient was approximately 30 minutes. ETOH/Disorder Med Rx ETOH/DRUG DISORDER RX: N/A Vital Signs/I&Os Vital Signs Date Time Temp Pulse Resp B/P (MAP) Pulse Ox O2 Delivery O2 Flow Rate FiO2 01/04/21 06:03 99.2 78 16 108/70 (83) 99 Room Air Medications Scheduled Cetirizine HCl (Cetirizine HCl) 10 Mg Tablet, 10 MG PO DAILY, (Reported) Guaifenesin (Mucinex) 600 Mg Tab.er.12h, 600 MG PO BID, (Reported) Prazosin HCl (Minipress) 1 Mg Capsule, 2 MG PO QHS for nightmares, #14 Sertraline Hcl (Zoloft) 100 Mg Tablet, 100 MG PO QHS for depression, #7 Scheduled PRN Fluticasone Propionate (Flonase Allergy Relief) 9.9 Ml [place].susp, 1 SPRAY NA BID PRN for NASAL CONGESTION, (Reported) Hydroxyzine HCl (Hydroxyzine HCl) 50 Mg Tablet, 50 MG PO QHS PRN for INSOMNIA, (Reported) Trazodone HCl (Trazodone HCl) 50 Mg Tablet, 50 MG PO QHSP PRN for INSOMNIA, #7 Allergies Coded Allergies: No Known Drug Allergies (Verified Allergy, Unknown, 07/08/20) SAW VILLEGAS MD Jan 04, 2021 13:45
[2021-01-05] MEDS ORDERED: PRAZ1CAP PO (18:49)
[2021-01-05] MEDS ORDERED: ZOLO100T PO (18:49)
[2021-01-05] MEDS ORDERED: TRAZ-252 PO (18:49)
[2021-01-07 15:07] LABS: HSV-1 DNA Negative (Negative); HSV-2 DNA Negative (Negative)
== END 2021-01-04 12:12 | disposition home or self-care (01) | DRG 885 ==
LOC: M ED 19:41 → M ED INP 12-26 01:13 → M PSY 12-26 03:51
PROVIDERS: ADMIT Psychiatry & Neurology Psychiatry; ATTEND Psychiatry & Neurology Psychiatry
DX: F33.0 Major depressive disorder, recurrent, mild (principal); R45.851 Suicidal ideations; F90.9 Attention-deficit hyperactivity disorder, unspecified type; F60.3 Borderline personality disorder; F17.290 Nicotine dependence, other tobacco product, uncomplicated; Z63.5 Disruption of family by separation and divorce; Z91.410 Personal history of adult physical and sexual abuse; Z20.822 Contact with and (suspected) exposure to COVID-19; Z79.899 Other long term (current) drug therapy; Z65.3 Problems related to other legal circumstances

== ENCOUNTER 2021-01-05 05:26 | Inpatient (IN) | payer OTHER ==
[~2021-01-05] VITALS: Ht 165.1 cm; Wt 70.6 kg
[~2021-01-05 05:26] MED LIST changes: +CETI10TA4 PO; +FLON1SPR; +MINI1CAP PO; +MUCI600T31 PO; +TRAZ-252 PO; +ZOLO100T PO
--- OUTSIDE RECORDS SUMMARY | 2021-01-05 05:30 | CCD ---
Author Author [facility] Organization [facility] Address Unknown Phone Unavailable Care Team Providers Care Mower Operator Name Role Phone AMRIK, F TOBY [...] is protected by Article 27-F of the [facility] Public Health law. If you continue you may have access to information: Regarding HIV / AIDS; Provided by facilities licensed or operated by the [facility] Office of Mental Health; or Provided by the [facility] Office for People With Developmental Disabilities. If such information is present, then the following [facility] mandated warning applies: This information has been [...] law may result in a fine or alf sentence or both. A general authorization for the release of medical or other information is NOT sufficient authorization for further disc losure. Encounters Encounter Providers Location Date Indications Data Source(s ) Emergency Attender: TOBY ELIZABETH DOConsultant: STAFF NON 07/07/2020 11:07:00 PM EDT - 07/08/2020 06:56:00 AM EDT [facility] Patient discharged. Emergency Attender: Elliot Elise MDConsultant: STAFF NON 06/27/2020 01:19:00 AM EDT - 06/27/2020 03:27:00 AM EDT [facility] Patient discharged. Emergency Attender: NALINI LANDISConsultant: STAFF NON 05/23/2020 07:02:00 PM EDT - 05/23/2020 07:06:00 PM EDT [facility] ital Patient discharged. Emergency Attender: Elliot Arik MDConsultant: STAFF NON 05/12/2020 02:24:00 AM EST - 05/12/2020 03:31:00 AM [facility] Patient discharged. Medications No Information Insurance Providers Payer name Policy type / Coverage type Policy ID Covered constitution party ID Covered constitution party's relationship to tristan Policy Tristan Plan Information [employer] [id number] SP [id number] [facility] [employer] - O/P [id number] 18 [id number] Problems, Conditions, and Diagnoses Code Display Name Description Problem Type Effective Dates Data Source(s) Y929 [address] or not applicable Unspecified place or not applicable Diagnosis 07/07/2020 11:07:00 PM EDT [facility] [id number] Intentional self-harm by other specified means, initial encounter Intentional self-harm by other specified means, initial encounter Diagnosis 07/07/2020 11:07:00 PM EDT [facility] R01907 CONTACT WITH AND SUSPECTED EXPOSURE TO C OVID-19 CONTACT WITH AND SUSPECTED EXPOSURE TO COVID-19 Diagnosis 07/07/2020 11:07:00 PM EDT [facility] Y906 Blood alcohol level of 120-199 mg/100 ml Blood alcohol level of 120-199 mg/100 ml Diagnosis 07/07/2020 11:07:00 PM EDT [facility] [id number] Laceration without foreign body of left wrist, initial encounter Laceration without foreign body of left wrist, initial encounter Diagnosis 07/07/2020 11:07:00 PM EDT [facility] X90164 Nicotine dependence, other tobacco produ ct, uncomplicated Nicotine dependence, other tobacco product, uncomplicated Diagnosis 07/07 11:07:00 PM EDT [facility] Y12704 Alcohol abuse with intoxication, uncompl icated Alcohol abuse with intoxication, uncomplicated Diagnosis 07/07/2020 11:07:[address] 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, single episode, severe with psychotic features Diagnosis 07/07/2020 11:07:00 PM EDT [facility] R25533 Suicidal ideations Suicidal ideations Diagnosis [facility] Major depressive disorder, recurrent, mi ld Major depressive disorder, recurrent, mild Diagnosis 06/27/2020 01:19:00 AM EDT [facility] F419 Anxiety disorder, unspecified Anxiety disorder, unspec ified Diagnosis [facility] Procedure and treatment not carried out due to patient leaving prior to being seen by health care provider Procedure and treatment not carried out due to patient leaving prior to being seen by health care provider Diagnosis 05/23/[facility] Major depressive disorder, single episod e, unspecified Major depressive disorder, single episode, unspecified Diagnosis 05/12/2020 02:24:00 AM [facility] Surgeries/Procedures No Information Results ID Date Data Source [id number] 12/25/2020 10:10:00 PM EDT [facility] Name Value Range Interpretation Code Description Data Lea rce(s) Supporting Document(s) SARS coronavirus 2 RNA [Presence] in Res piratory specimen by CHIN with probe detection NEGATIVE [facility] This lab was ordered by [facility] a nd reported by . ID Date Data Source [id number] 12/10/2020 01:59:00 PM EDT [facility] Name Value Range Interpretation Code Description Data Lea rce(s) Supporting Document(s) SARS coronavirus 2 RNA [Presence] in Res piratory specimen by CHIN with probe detection NEGATIVE [facility] This lab was ordered by [facility] a nd reported by . ID Date Data Source [id number] 11/21/2020 04:51:00 AM EDT [facility] Name Value Range Interpretation Code Description Data Lea rce(s) Supporting Document(s) SARS coronavirus 2 RNA [Presence] in Res piratory specimen by CHIN with probe detection NEGATIVE [facility] This lab was ordered by [facility] a nd reported by . ID Date Data Source [id number] 07/08/2020 01:07:00 [place] [address] RESPIRATORY CARE REPORT ==== ---------NAME------- NUMBER SEX AGE ADMIT DISC. XRAY# F/C MARK Wetzel [id number] F 07/07/20 07/08/20 [id number] SB4 E/R DATE OF : 2000 M/R# [id number] #: [id number] TR-02 LOCATION: EMERGENCY DEPT EKG 31210 COMP LETE:07/08/20 01:43 AJP 29726 PHYSICIAN: AMRIK ANTOINE Name Value Range Interpretation Code Description Data Lea rce(s) Supporting Document(s) ID Date Data Source [id number] 07/07/2020 11:07:00 PM EDT [facility] 1 OrderSheet [facility] Emergency Department [address] [place] [address] Phone #: ext- [phone] 07/07/2020 22:48 Patient: [...] CDC) Physician; King Starks(07/07/2020) (First 2 OrderSheet [facility] Emergency Department [address] [place] [address] Phone #: ext- [phone] 07/07/2020 22:48 Patient: EDGARDO MANZANO Sex: F : 2000 Age: 20yTest) (Hospitalized)(Not ) (NotResident inCongregate CareSetting) (NotEmployed inHealthcare Setting)ETOH STAT 03:33 07/08/2020 03:38 Toby Heredia R.N. Physician;DIAGNOSTIC STUDY ORDERSOrder Description Priority Entered Acknowledged InitialedMEDICATION/IV/DRIP/FLUID ORDERSOrder Description Priority Entered Acknowledged InitialedAcetaminophen PO 03:27 07/08/2020 03:38 Yan,650 mg (NOW x1) Ivory Heredia R.N. RMilagroNMilagro; Verbal order per; Toby ElAcetaminophen PO 06:48 07/08/2020 06:50 Bisha,650 mg (NOW) Toby Malik Physician;GENERAL ORDERSOrder Description Priority Entered Acknowledged InitialedEKG 23:04 07/07/2020 23:15 Toby Gonsalez Physician;Transfer: ([facility]) 06:40 07/08/2020 06:44 Toby Heredia R.N. Physician;[Electronically signed by Toby Elizabeth (06:50 07/08/2020 )][Electronically signed by Ivory Heredia R.N. (06:56 07/08/2020)][Electronically locked by Ivory Heredia R.N. (06:56 07/08/2020)] Name Value Range Interpretation Code Description Data Lea rce(s) Supporting Document(s) ID Date Data Source [id number] 07/07/2020 11:07:00 PM EDT [facility] 1 Medication Reconciliation Report [facility] Emergency Department [address] [place] [address] Phone #: ext- [phone] 07/07/2020 22:48 Patient: [...] rce(s) Supporting Document(s) ID Date Data Source [id number] 07/07/2020 11:07:00 PM EDT [place] [address] Medication Administration Record [facility] Emergency Department [address] [place] [address] Phone #: ext- [phone] 07/07/2020 22:48 Patient: [...] rce(s) Supporting Document(s) ID Date Data Source [id number] 07/07/2020 11:07:00 PM EDT [facility] 1 General Instructions [facility] Emergency Department [address] [place] [address] Phone #: ext- [phone] 07/07/2020 22:48 Patient: EDGARDO MANZANO Sex: F : 2000 Age: 20ySuicidal ideation.Single episode of severe major depressive disorder with psychosis, suicidal ideation and suicidal attempt.Uncomplicated alcohol intoxication.No alcohol intoxication with delirium or alcohol dependence.INSTRUCTIONS(Woll go by Police custody).(Electronically signed by Toby Elizabteh, Physician 07/08/2020 06:50) Name Value Range Interpretation Code Description Data Lea rce(s) Supporting Document(s) ID Date Data Source [id number] 07/07/2020 11:07:00 PM EDT [facility] 1 Clinical Report - Nurses [facility] Emergency Department [address] [place] [address] Phone #: ext- [phone] 07/07/2020 22:48 Patient: EDGARDO MANZANO Sex: F : 2000 Age: 20yTRIAGEArrived by private vehicle. Historian: patient. ( Patient states SI/HI, emotional distress due to personalstress.).Acuity: LEVEL 2.Chief Complaint: DEPRESSION and SUICIDAL THOUGHTS and THOUGHTS OF HARMING SELF andHOMICIDAL THOUGHTS.Alert. 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 SEPSIS SCREEN NEGATIVE. [...] because you 2 Clinical Report - Nurses [facility] Emergency Department [address] [place] [address] Phone #: ext- [phone] 07/07/2020 22:48 Patient: [...] at this time.). --23:01 07/07/20 Ivory Heredia RBoogie. Monitoring of patient in place. Patient gowned. [...] Heredia R.N. 3 Clinical Report - Nurses [facility] Emergency Department [address] [place] [address] Phone #: ext- [phone] 07/07/2020 22:48 Patient: EDGARDO MANZANO Sex: F [...] care. Pt requesting to use bathroom. Nursing Pipelines Supervisor with pt for 1:1. Pt had lockedherself [...] and she hasreturned with a member from [place] back into the bathroom. She was given a field test for alcohol bythe police but she is currently still at 1.1. As the night has progressed she has become difficult to redirect.At this moment she is in the bathroom with an assigned soldier. We continue to await medical clearance [facility].). --01:59 07/08/20 Mora Ofelia, RN03:25 07/08/20. BP: 119/82. MAP: 94. HR: 95. RR: 16. O2 saturation: 99% on room air. Pain level now:07/09. --03:26 07/08/20 Ivory Heredia R.N.03:38 07/08/2020 Acetaminophen PO 650 mg given. Allergies verified and confirmed 5 rights. Informationreviewed with patient. Verbalizes understanding. --03:38 07/08/20 Ivory Heredia R.N.The patient is calm and resting quietly. ( Patient remains resting on stretcher at this time, pt's commanderis at bedside with pt. Awaiting to hear back from [facility] to see if she will be accepting for psych unit.).--05:07 07/08/20 Ivory Heredia R.N.The patient is calm and resting quietly. ( Patient walked outside with commander for "fresh air". MDPalumbo okay with pt going outside with commander. Pt remains visible in outside camera. Pt walked backin onto stretcher with commander, remains calm and quiet. Awaiting to hear back from [facility] at this time.). 4 Clinical Report - Nurses [facility] Emergency Department [address] [place] [address] Phone #: ext- [phone] 07/07/2020 22:48 Patient: EDGARDO MANZANO Sex: F [...] awaiting for their arrival. Attempting to get [facility] to accept pt with PD as pt is unsafe to go with ambulance at this time.). --06:28 07/08/20 Iovry Heredia R.N. ( Pt running up to [...] 07/08/20 King Gonsalez.DISPOSITION / DISCHARGE Transferred to . Visit overview, summary of care (CCDA), Emtala forms and Face Sheet provided. Transported via (Pt being transfered to [facility] with PD). Report was given to a nurse via a phone call. Report included information regarding patient's care, treatment, allergies and condition including: recent changes and anticipated changes, current vital signs and abnormal labs. Report included treatment information regarding medications given or pending. All questions were answered. Report was acknowledged and care was transferred. (GURPREET Leija at [facility]). Patient's personal items include, PD took valuables with pt to be transfered to [facility]. --06:55 07/08/20 Ivory Heredia R.N. 06:52 [...] Heredia R.N. 5 Clinical Report - Nurses [facility] Emergency Department [address] [place] [address] Phone #: ext- [phone] 07/07/2020 22:48 Patient: EDGARDO MANZANO Sex: F : 2000 Age: 20y Name Value Range Interpretation Code Description Data Lea rce(s) Supporting Document(s) ID Date Data Source [id number] 07/07/2020 11:07:00 PM EDT [facility] 1 Clinical Report - Physicians/Mid Levels [facility] Emergency Department [address] [place] [address] Phone #: ext- [phone] 07/07/2020 22:48 Patient: [...] sounds normal. 2 Clinical Report - Physicians/Mid Levels [facility] Emergency Department [address] [place] [address] Phone #: ext- [phone] 07/07/2020 22:48 Patient: EDGARDO MANZANO Sex: F [...] EKGEKG: Normal EKG. Normal sinus rhythm. Normal [place] interval. Normal QRS complexes. Normal STs and Twaves. No ectopy.Laboratory Tests: Laboratory tests have been ordered, with results reviewed and considered in themedical decision making process. COVID-19 CAH: ([facility]: 07/08/2020 03:31) ( [facility] Final results [...] CBC w Diff: (CUONG: 07/07/2020 23:10) ( [facility] [place] cvd 07/07/2020 23:26) Final [...] 0.20) 3 Clinical Report - Physicians/Mid Levels [facility] Emergency Department [address] [place] [address] Phone #: ext- [phone] 07/07/2020 22:48 Patient: [...] Male GFR Interprentation 20-49 yrs >60 mL/min Btoaxr23-36 yrs >56 mL/min Normal 60- 69 yrs >49 mL/min Normal 70-79yrs>42 mL/min Normal 80 and above >35 mL/min Normal Female GFRInterpretation 20-39 yrs >60 mL/min Normal 40-49 yrs >58 mL/minNormal 50-59 yrs >51 mL/min Normal 60-69 yrs >45 mL/min [place]66-68 yrs >39 mL/min Normal 80 and above >32 mL/min NormalETOH: (CUONG: 07/07/2020 23:10) ( [facility] 07/07/2020 23:42) Final results Test Result Flag Units (Reference) ALCOHOL 194.0 MG/DL ALCOHOL % 0.19 H % (0.00 - 0.01) *FOR MEDICAL PURPOSES ONLY*TSH: (CUONG: 07/07/2020 23:10) ( [facility] 07/07/2020 23:47) Final results Test Result Flag Units (Reference) TSH 1.42 uIU/mL (0.47 - 5.01)Urinalysis: (CUONG: 07/07/2020 23:10) ( [facility] 07/07/2020 23:37) Final results Test Result Flag Units (Reference) URINALYSIS URINALYSIS SOURCE Clean Catch COLOR yellow (NORMAL: Yello CLARITY clear (NORMAL: Clear 4 Clinical Report - Physicians/Mid Levels [facility] Emergency Department [address] [place] [address] Phone #: ext- [phone] 07/07/2020 22:48 Patient: EDGARDO MANZANO Sex: F [...] Beta-HCG, Qual Urine: (CUONG: 07/07/2020 23:10) ( [facility]30[facility] Final results Test Result Flag Units (Reference) HCG URINE QUAL NEGATIVE (NORMAL: NEGAT HCG URINE QL REENTER NEGATIVE (NORMAL: NEGAT { KIT LOT # [id number] ){ KIT EXP DATE [id number] ){ PROCEDURAL CONTROL VALID ) Acetaminophen Level: (CUONG: 07/07/2020 23:10) ( [facility] [place] 23:37) Final results Test Result Flag Units (Reference) ACETAMINOPHEN <5.0 UG/ML (0.0 - 30.0) Salicylate Level: (CUONG: 07/07/2020 23:10) ( [facility] 23:42) Final results Test Result Flag Units (Reference) SALICYLATE <0.3 L mg/dL (2.0 - 20.0). 5 Clinical Report - Physicians/Mid Levels [facility] Emergency Department [address] [place] [address] Phone #: ext- [phone] 07/07/2020 22:48 Patient: EDGARDO MANZANO Sex: F : [birth year] Age: 20yPROGRESS AND PROCEDURESCourse of Care: 23:Jul 07 2020. (Patient's history obtained and exam completed. treatment plandiscussed and agreed upon. Labs and EKG ordered. Patient agrees with transferred to [facility] for Psych.). 04:22 Jul 08 2020. (EOT at 0330 .08). 06:38 Jul 08 2020. (Patient accepted by dr Mac after report given.). 06:43 Jul 08 2020. (Patient had threatening outburst at staff. Discussed transfer to [facility] with Dr Mac he requests transfer via Police custody.). Disposition: Benefits, risks and alternatives to transfer explained to patient. Transferred to . Summary of care (CCDA) provided to via [...] rce(s) Supporting Document(s) ID Date Data Source [id number] 07/08/2020 04:21:00 AM EDT [facility] Name Value Range Interpretation Code Description Data [facility] rce(s) Supporting Document(s) Ethanol [Moles/volume] in Blood 76.6 MG/DL [facility] ALCOHOL % 0.08 % 0.00 - 0.01 H [facility] *FOR MEDICAL PURPOSES ONLY * ID Date Data Source [id number] 07/08/2020 03:31:00 AM EDT [facility] Name Value Range Interpretation Code Description Data [facility] rce(s) Supporting Document(s) COVID19 Case rprt NOT DETECTED [facility] This lab was ordered by [facility] and reported by [facility]. ID Date Data Source [id number] 07/08/2020 04:02:00 AM EDT [facility] NOT DETECTEDNOT DETECTED{ PROC EDURAL CONTROL VALID KIT LOT # _[id number] 07/08/20.0402.AB . . . KIT EXP DATE _[id number] 07/08/20.0402.AB . . . NORMAL RANGE IS NOT [...] rce(s) Supporting Document(s) ID Date Data Source [id number] 07/12/2020 09:18:00 PM EDT [facility] Name Value Range Interpretation Code Description Data Lea rce(s) Supporting Document(s) CULTURE URINE [facility] _CULTURE URINE_$$[id number]$$[id number]$$[id number]$$[id number]$$259906$$[id number]$$794831$$556548$$918197$$ 262532$$365180$$260810$$135950$$749083$$991975$$455145$$480126$$557425$$394813$$ 558951$$573321$$271046$$892643$$468348$$310546$$805999$$[id number] -- Continued on next page --Patient: JOSE JUAN Wetzel Order: [id number] Page 2Culture: CULTURE URINE Status: Final ==== -- Continued on next page --Patient: JOSE JUAN REYNOSO Order: [id number] Page 2Culture: CULTURE URINE Status: Prelim =====$$[id number]$$[id number] DATE/TIME: 07/12/2020 16:07Culture: CULTURE URINE Status: FinalIsolate 1 Enterococcus faecalis Flag: A . . . . . . .710,000-25,000 colony forming units per mL Previous result entered on 07/11/2020 20:26 ET Microbiological testing to rule out the presence of possible pathogensis in progress.Urine Culture,Comprehensive: [id number] faecalis Flag: AIsolate 2 Escherichia coli Flag: [...] coli Flag: APatient: JOSE JUAN Wetzel Order: [id number] Page 3Culture: CULTURE URINE Status: Final ====ISOLATE 1 Enterococcus faecalisISOLATE 2 Escherichia coli Isolate 1 Isolate 2Antibiotic REESE Int REESE IntUnits ug/mL ug/mL Amoxicillin/Clavulanic Acid Ampicillin Cefepime Ceftriaxone Cefuroxime Ciprofloxacin S S Ertapenem Gentamicin Imipenem Levofloxacin S S Meropenem Nitrofurantoin S S Penicillin S S Piperacillin/Tazobactam Tetracycline R R Tobramycin Trimethoprim/Sulfa Vancomycin S S P1 Test performed by: [facility] #: [id number] [address] [id number] [facility] [id number] Director : Arnol Parmar MD NPI #:Pulp And Paper Tester : 07/12/20.0733.XMT.SENT REF 07/12/20.2118.XMT.SENT REF ID Date Data Source [id number] 07/07/2020 11:47:00 PM EDT [facility] Value Range Interpretation Code Description Data Lea rce(s) Supporting Document(s) Thyrotropin [Units/volume] in Serum or Plasma by Detec tion limit <= 0.05 mIU/L 1.42 uIU/mL 0.47 - 5.01 [facility] ID Date Data Source [id number] 07/07/2020 11:42:00 PM EDT [facility] Name Value Range Interpretation Code Description Data Lea rce(s) Supporting Document(s) SALICYLATE <0.3 mg/dL 2.0 - 20.0 L [facility] ID Date Data Source [id number] 07/07/2020 11:41:00 PM EDT [facility] Name Value Range Interpretation Code Description Data Lea rce(s) Supporting Document(s) Ethanol [Moles/volume] in Blood 194.0 MG/DL [facility] ALCOHOL % 0.19 % 0.00 - 0.01 H [facility] *FOR MEDICAL PURPOSES ONLY * ID Date Data Source [id number] 07/07/2020 11:41:00 PM EDT [facility] Value Range Interpretation Code Description Data Lea rce(s) Supporting Document(s) COMPREHENSIVE METABOLIC PANEL [facility] COMPREHENSIVE METABOLIC PANEL Sodium [Moles/volume] in Serum or Plasma 137 mEq/L 134 - 153 [facility] Potassium [Moles/volume] in Serum or Plasma 3.5 mEq/L 3.6 - 5.0 L [facility] Chloride [Moles/volume] in Serum or Plasma 107 mEq/L 98 - 107 [facility] Carbon dioxide, total [Moles/volume] in Serum or Plasma 18 MEQ/L 22 - 30 L [facility] Glucose [Mass/volume] in Serum or Plasma 116 MG/DL 70 - 99 H [facility] BUN 12 MG/DL 7 - 21 [facility] al Creatinine [Mass/volume] in Serum or Plasma 0.9 MG/DL 0.7 - 1.5 [facility] BUN/CREAT 13 8 - 27 [facility] al Protein [Mass/volume] in Serum or Plasma 7.7 G/DL 6.3 - 8.2 [facility] Albumin [Mass/volume] in Serum or Plasma 4.6 G/DL 3.9 - 5.0 [facility] Globulin [Mass/volume] in Serum by calculation 3.1 GM/DL 2.4 - 3.2 [facility] A/G RATIO 1.5 0.8 - 2.0 [facility] Calcium [Mass/volume] in Serum or Plasma 9.4 MG/DL 8.4 - 10.2 [facility] Bilirubin.total [Mass/volume] in Serum or Plasma <0.7 MG/DL 0.2 - 1.3 [facility] Alkaline phosphatase [Enzymatic activity/volume] in Serum or Plasma 60 U/L 38 - 126 [facility] Aspartate aminotransferase [Enzymatic activity/volume] in Serum or Plasma 23 U/L 5 - 40 [facility] Alanine aminotransferase [Enzymatic activity/volume] in Seru m or Plasma 14 U/L 7 - 56 [facility] Anion gap 3 in Serum or Plasma 12.0 mmol/L 8.0 - 16.0 [facility] AGE 20 yrs [facility] al NON-AA GFR >60 mL/min [facility] ital AFR AMER GFR >60 mL/min [facility] Male GFR In terprentation [...] >32 mL/min Normal ID Date Data Source [id number] 07/07/2020 11:41:00 PM EDT [facility] Name Value Range Interpretation Code Description Data Lea rce(s) Supporting Document(s) DRUG SCREEN URINE [facility] URINE DRUG SCREEN Amphetamine [Presence] in Urine by Screen method NEGATIVE NORMAL: N EGATIVE [facility] BARBITURATES NEGATIVE NORMAL: NEGATIVE [facility] BENZO NEGATIVE NORMAL: NEGATIVE [facility] COCAINE NEGATIVE NORMAL: NEGATIVE [facility] Tetrahydrocannabinol [Presence] in Urine NEGATIVE NORMAL: NEGATIVE [facility] OPIATES NEGATIVE NORMAL: NEGATIVE [facility] Phencyclidine [Presence] in Urine by Screen method NEGATIVE NOR MAL: NEGATIVE [facility] \\BLDo\\URINE DRUG SCR EEN INTERPRETATION\\BLDx\\ THE CUTOFFF LEVELS FOR DETECTION ARE FOLLOWS: AMPHETAMINES 1000 ng/ml BARBITUARATES 200 ng/ml BENZODIAZEPINES 100 ng/ml THC 50 ng/ml PHENCYCLIDINE 25 ng/ml OPIATES 300 ng/ml COCAINE 300 ng/ml ALL POSITIVES ARE CONSIDERED PRESUMPTIVE POSITIVE CONFIRMATION WILL BE PERFORMED AT PHYSICIAN REQUEST. ID Date Data Source [id number] 07/07/2020 11:36:00 PM EDT [facility] Name Value Range Interpretation Code Description Data Lea rce(s) Supporting Document(s) [facility] S[facility] Clean Catch [facility] COLOR yellow NORMAL: Yellow [facility] CLARITY clear NORMAL: Clear [facility] Specific gravity of Urine by Test strip 1.010 1.001 - 1.030 [facility] pH 6.5 5 - 9 [facility] al Glucose [Mass/volume] in Urine by Test strip NORM NORMAL: Negat abbe [facility] Bilirubin.total [Presence] in Urine by Test strip NEG NORMAL: Negative [facility] Ketones [Presence] in Urine by Test strip NEG NORMAL: Negative [facility] Protein [Mass/volume] in Urine by Test strip NEG NORMAL: Negat abbe [facility] Nitrite [Presence] in Urine by Test strip NEG NORMAL: Negative [facility] BLOOD NEG NORMAL: Negative [facility] Leukocyte esterase [Presence] in Urine by Test strip 500 RICH L: Negative A [facility] Urobilinogen [Mass/volume] in Urine by Test strip NOR less azul n 1.0 mg/dL [facility] MICROSCOPIC See Below [facility] ital WBC 5 - 7 NORMAL: NONE SEEN [facility] Erythrocytes [#/volume] in Urine by Test strip 0 - 1 NORMAL: NON E SEEN [facility] EPITHELIAL FEW NORMAL: NONE SEEN [facility] Bacteria [Presence] in Urine sediment by Light microscopy Tr navi NORMAL: NONE SEEN [facility] ID Date Data Source [id number] 07/07/2020 11:37:00 PM EDT [facility] Name Value Range Interpretation Code Description Data Lea rce(s) Supporting Document(s) Acetaminophen [Presence] in Urine <5.0 UG/ML 0.0 - 30.0 [facility] ID Date Data Source [id number] 07/07/2020 11:29:00 PM EDT [facility] Name Value Range Interpretation Code Description Data Lea rce(s) Supporting Document(s) HCG URINE QUAL NEGATIVE NORMAL: NEGATIVE [facility] HCG URINE QL REENTER NEGATIVE NORMAL: NEGATIVE [facility] { KIT LOT # [id number] ){ KIT EXP DATE [id number] ){ PROCEDURAL CONTROL VALID ) ID Date Data Source [id number] 07/07/2020 11:26:00 PM EDT [facility] Name Value Range Interpretation Code Description Data Lea rce(s) Supporting Document(s) CBC W/AUTOMATED DIFF [facility] COMPLETE BLOOD COUNT Leukocytes [#/volume] in Blood by Automated count 9.0 10^3/uL 4.2 - 1 1.0 [facility] Erythrocytes [#/volume] in Blood by Automated count 4.66 10^6/uL 4. 20 - 5.40 [facility] Hemoglobin [Mass/volume] in Blood 14.7 g/dL 12.0 - 16.0 [facility] Hematocrit [Volume Fraction] of Blood by Automated count 41.7 % 3 7.0 - 47.0 [facility] Erythrocyte mean corpuscular volume [Entitic volume] by Auto mated count 89.5 fL 81.0 - 101 [facility] Erythrocyte mean corpuscular hemoglobin [Entitic mass] by Automated count 31.5 pg 27.0 - 34.0 [facility] Erythrocyte mean corpuscular hemoglobin concentration [Mass/volume] by Automated count 35.3 g/dL 31.0 - 36.0 [facility] Erythrocyte distribution width [Ratio] by Automated count 12.5 % 11.5 - 14.5 [facility] Platelets [#/volume] in Blood by Automated count 206 10^3/uL 150 - 45 0 [facility] Platelet mean volume [Entitic volume] in Blood by Automated count 10.9 fL 7.4 - 10.4 H [facility] Neutrophils/100 leukocytes in Blood by Automated count 42.6 % 37. 0 - 80.0 [facility] Lymphocytes/100 leukocytes in Blood by Manual count 42.4 % 25.0 - 40.0 H [facility] Monocytes/100 leukocytes in Blood by Automated count 9.0 % 3.0 - 8.0 H [facility] Eosinophils/100 leukocytes in Blood by Automated count 4.8 % 0.0 - 7.0 [facility] Basophils/100 leukocytes in Blood by Automated count 0.6 % 0.0 - 2.5 [facility] %IG 0.6 % 0.0 - 0.0 H [facility] al %NRBC 0.0 % 0.0 - 0.0 [facility] al Neutrophils [#/volume] in Blood by Automated count 3.87 10^3/uL 2.00 - 6.90 [facility] Lymphocytes [#/volume] in Blood by Automated count 3.83 10^3/uL 0.60 - 3.40 H [facility] Monocytes [#/volume] in Blood by Automated count 0.81 10^3/uL 0.00 - 0.90 [facility] Eosinophils [#/volume] in Blood by Automated count 0.43 10^3/uL 0.00 - 0.70 [facility] Basophils [#/volume] in Blood by Automated count 0.05 10^3/uL 0.00 - 0.20 [facility] #IG 0.05 10^3/uL 0.00 - 0.10 [facility] #NRBC 0.00 10^3/uL 0.00 - 0.00 [facility] MANUAL DIFF NOT INDICATED [facility] RBC MORPH NOT INDICATED [facility] ID Date Data Source [id number] 06/27/2020 01:19:00 AM EDT [place] [address] Medication Reconciliation Report [facility] Emergency Department [address] [place] [address] Phone #: ext- [phone] 06/27/2020 01:19 Patient: [...] rce(s) Supporting Document(s) ID Date Data Source [id number] 06/27/2020 01:19:00 AM EDT [place] [address] Medication Administration Record [facility] Emergency Department [address] [place] [address] Phone #: ext- [phone] 06/27/2020 01:19 Patient: EDGARDO MANZANO Sex: F : 2000 Age: 20yWeight: 71.2 kgHeight/Length: 64 inBMI: 27ALLERGIES: No Known Drug AllergyDate/Time Medication Administered Medication Ordered Name Value Range Interpretation Code Description Data Lea rce(s) Supporting Document(s) ID Date Data Source [id number] 06/27/2020 01:19:00 AM EDT [facility] 1 General Instructions [facility] Emergency Department [address] [place] [address] Phone #: ext- [phone] 06/27/2020 01:19 Patient: EDGARDO MANZANO Sex: F : 2000 Age: 20yMood disorder (mild recurrent major depressive disorder without psychosis)INSTRUCTIONSWarnings: GENERAL WARNINGS: Return or contact your physician immediately if your conditionworsens or changes unexpectedly, if not improving as expected, or if other problems arise.Understan ding of the discharge instructions verbalized by patient.Follow-up with: [facility] Respective Team [place], , , [address] [facility] [address], , [place], [address] Follow up in two days. Call for [...] good care can greatly 2 General Instructions [facility] Emergency Department [address] [place] [address] Phone #: ext- [phone] 06/27/2020 01:19 Patient: [...] providers about all of the prescription and yhzt-mxs-srefptp medicines, and supplements you take. Certain supplements [...] to see if it can help. The [employer] operates a toll-free [employer] information line at: [phone] (Voice); or [phone] (TTY). It can help you locate a local office.Follow-up careFollow up with your healthcare provider or therapist as advised. They can help you to find ways toimprove your life.Call [phone] if any of these happen: You have suicidal thoughts, a plan, and the means to harm yourself, or serious thoughts of hurting someone else 3 General Instructions [facility] Emergency Department [address] [place] [address] Phone #: ext- [phone] 06/27/2020 01:19 Patient: EDGARDO MANZANO Sex: F [...] another Being unable to care for yourself [phone] [employer]. [address] [place] [address]. All rights reserved. This information is not intended as asubstitute for professional medical care. Always follow your healthcare professional's instructions. You have been given the following additional information: Bipolar Disorder(Electronically signed by Elliot Elise 06/27/2020 03:45) Name Value Range Interpretation Code Description Data Lea rce(s) Supporting Document(s) ID Date Data Source [id number] 06/27/2020 01:19:00 AM EDT [facility] 1 Clinical Report - Nurses [facility] Emergency Department [address] [place] [address] Phone #: ext- [phone] 06/27/2020 01:19 Patient: [...] to arrival. 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 --01:40 06/27/20 Lisa Lee R.N.01:33 06/27/20. BP: [...] The patient 2 Clinical Report - Nurses [facility] Emergency Department [address] [place] [address] Phone #: ext- [phone] 06/27/2020 01:19 [id number] Sex: F : 2000 Age: 20y reports [...] Borderline personality disorder. --02:36 06/27/20 Elliot Elise.PHYSICAL CHUCIDEZYK69:33 06/27/20. Ambulatory to room. Patient gowned.GENERAL / [...] within normal limits. --01:33 06/27/20 Jae Maharaj RBoogie. GENERAL / NEURO / PSYCH: The patient [...] 15 minutes. 3 Clinical Report - Nurses [facility] Emergency Department [address] [place] [address] Phone #: ext- [phone] 06/27/2020 01:19 Patient: [...] Patient verbalized understanding. Written instructions provided in Armenian. The patient was discharged by the physician. She was discharged home and accompanied by interventional technologist. She left ambulatory and via private vehicle. Clinical Laboratory Service Teacher driving. --03:53 06/27/20 Lisa Lee R.N. 03:50 06/27/20. BP: deferred. HR: deferred. RR: deferred. O2 saturation: deferred. Temp: deferred. Pain level now deferred. --03:53 06/27/20 Lisa Lee R.N.Locked/Released at 06/27/2020 04:25 by Lisa Lee R.N. Name Value Range Interpretation Code Description Data Lea rce(s) Supporting Document(s) ID Date Data Source [id number] 06/27/2020 01:19:00 AM EDT [facility] 1 Clinical Report - Physicians/Mid Levels [facility] Emergency Department [address] [place] [address] Phone #: ext- [phone] 06/27/2020 01:19 Patient: EDGARDO MANZANO [id number] Sex: Rashard : 2000 Age: 20y Time Seen: 01:54 [...] Allergy. 2 Clinical Report - Physicians/Mid Levels [facility] Emergency Department [address] [place] [address] Phone #: ext- [phone] 06/27/2020 01:19 Patient: [...] arise. 3 Clinical Report - Physicians/Mid Levels [facility] Emergency Department [address] [place] [address] Phone #: ext- [phone] 06/27/2020 01:19 Patient: EDGARDO MANZANO Sex: F : 2000 Age: 20y Understanding of the discharge instructions verbalized by patient. Follow- up with: [facility] Respective Team [place]yl [place], , , [address] [facility] [address], , [place], [address] Follow up in two days. Call for an appointment.(Electronically signed by Elliot Elise 06/27/2020 03:45) Name Value Range Interpretation Code Description Data Lea rce(s) Supporting Document(s) ID Date Data Source [id number] 06/20/2020 09:40:00 AM EDT [facility] Name Value Range Interpretation Code Description Data Lea rce(s) Supporting Document(s) SARS coronavirus 2 RNA Not Detected [facility] This lab was ordered by [facility] and reported by [facility]. ID Date Data Source [id number] 05/23/2020 07:02:00 PM EDT [facility] 1 Medication Reconciliation Report [facility] Emergency Department [address] [place] [address] Phone #: ext- [phone] 05/23/2020 18:53 Patient: [...] rce(s) Supporting Document(s) ID Date Data Source [id number] 05/23/2020 07:02:00 PM EDT [facility] 1 Medication Administration Record [facility] Emergency Department [address] [place] [address] Phone #: ext- [phone] 05/23/2020 18:53 Patient: EDGARDO MANZANO Sex: F : 2000 Age: 20yWeight: 71.2 kgHeight/Length: 64 inBMI: 27ALLERGIES: NoneDate/Time Medication Administered Medication Ordered Name Value Range Interpretation Code Description Data [facility](s) Supporting Document(s) ID Date Data Source [id number] 05/23/2020 07:02:00 PM EDT [facility] 1 Clinical Report - Nurses [facility] Emergency Department [address] [place] [address] Phone #: ext [phone] 05/23/2020 18:53 Patient: EDGARDO MANZANO Sex: F : 2000 Age: 20yTRIAGEArrived by private vehicle. Historian: patient. Unaccompanied. ( pt states that she is anxious but doesnot appear to be at this time).Acuity: LEVEL 5.Chief Complaint: ANXIETY and (anxiety).Alert. No acute distress.Onset: today. The patient has had anxiety.Treatment DESIZING MACHINE OPERATOR:None.SEPSIS SCREEN: SIRS SCREEN NEGATIVE. SEPSIS SCREEN NEGATIVE. [...] MRSA. Staff 2 Clinical Report - Nurses [facility] Emergency Department [address] [place] [address] Phone #: ext- [phone] 05/23/2020 18:53 Patient: EDGARDO MANZANO Sex: F [...] Christian R.N. 3 Clinical Report - Nurses [facility] Emergency Department [address] [place] [address] Phone #: ext- [phone] 05/23/2020 18:53 Patient: EDGARDO MANZANO Sex: F : 2000 Age: 20yLocked/Released at 05/23/2020 19:12 by Hanane Christian R.N. Name Value Range Interpretation Code Description Data Lea rce(s) Supporting Document(s) ID Date Data Source [id number] 05/12/2020 02:24:00 AM EST [facility] 1 Medication Reconciliation Report [facility] Emergency Department [address] [place] [address] Phone #: ext- [phone] 05/12/2020 02:23 Patient: [...] Value Range Interpretation Code Description Data Lea e(s) Supporting Document(s) ID Date Data Source [id number] 05/12/2020 02:24:00 AM [facility] 1 Medication Administration Record [facility] Emergency Department [address] [place] [address] Phone #: ext- [phone] 05/12/2020 02:23 Patient: EDGARDO MANZANO Sex: F : 2000 Age: 20yWeight: 63.5 kgHeight/Length: 64 inBMI: 24ALLERGIES: No Known Drug AllergyDate/Time Medication Administered Medication Ordered Name Value Range Interpretation Code Description Data [facility](s) Supporting Document(s) ID Date Data Source [id number] 05/12/2020 02:24:00 AM [facility] 1 General Instructions [facility] Emergency Department [address] [place] [address] Phone #: ext- [phone] 05/12/2020 02:23 Patient: EDGARDO MANZANO Sex: F [...] Feeling depressed or withdrawn 2 General Instructions [facility] Emergency Department [address] [place] [address] Phone #: ext- [phone] 05/12/2020 02 :23 Patient: ED[facility]ARDO [facility]ANO [id number] Sex: F : 2000 Age: 20y Loss [...] providers about all of the prescription and cnxu-qdy-wxfhwho medicines, vitamins, and supplements you take. Certain [...] with your healthcare provider, or as advised.Call [phone] if you: Have suicidal thoughts, a suicide plan, and the means to carry out the plan; or serious 3 General Instructions [facility] Emergency Department [address] [place] [address] Phone #: ext- [phone] 05/12/2020 02:23 Patient: [...] and ask you to seek help [employer]. [address] [place] [address], [place] [address]. All rights reserved. This information is not intended as asubstitute for professional medical care. Always follow your healthcare professional's instructions. You have been given the following additional information: Depression(Electronically signed by Elliot Elise 05/12/2020 03:26) Name Value Range Interpretation Code Description Data Lea rce(s) Supporting Document(s) ID Date Data Source [id number] 05/12/2020 02:24:00 AM EST [facility] 1 Clinical Report - Nurses [facility] Emergency Department [address] [place] [address] Phone #: ext- [phone] 05/12/2020 02:23 Patient: [...] SORE THROAT.Alert. No acute distress.Onset. (4 weeks).Treatment DESIZING MACHINE OPERATOR:None.SEPSIS SCREEN: SIRS SCREEN NEGATIVE. SEPSIS SCREEN NEGATIVE. [...] Gonsalez.MedicationsMultivitamins Oral 1 pill, daily. --02:27 05/12/20 Sunshine King.AllergiesNo Known Drug Allergy. --02:27 05/12/20 Sunshine King.HistorySOCIAL HX: Never smoker. No alcohol use or [...] in your 2 Clinical Report - Nurses [facility] Emergency Department [address] [place] [address] Phone #: ext- [phone] 05/12/2020 02:23 Patient: [...] Identification band on patient. To treatment room. --02:29 05/12/20 King Gonsalez.PHYSICAL ASSESSMENTAmbulatory to room.GENERAL / NEURO [...] Patient verbalized understanding. Written instructions provided in Armenian. No medication instructions or treatment instructions. The [...] on room 3 Clinical Report - Nurses [facility] Emergency Department [address] [place] [address] Phone #: ext- [phone] 05/12/2020 02:23 Patient: EDGARDO MANZANO Sex: F : 2000 Age: 20y air. Temp: 97.8 F (oral). Pain level now: 0. --03:32 05/12/20 King Gonsalez.Locked/Released at 05/12/2020 03:32 by King Gonsalez Name Value Range Interpretation Code Description Data Lea rce(s) Supporting Document(s) ID Date Data Source [id number] 05/12/2020 02:24:00 AM EST [facility] 1 Clinical Report - Physicians/Mid Levels [facility] Emergency Department [address] [place] [address] Phone #: ext- [phone] 05/12/2020 02:23 Patient: [...] was admitted one time last year in [place] for depression. Patient feels alone sometimes and gets frustrated. Patient was on Aderall for ADD in high school. Patient already seen at [facility] and is connected to therapist and psychiatrist. [...] stay. 2 Clinical Report - Physicians/Mid Levels [facility] Emergency Department [address] [place] [address] Phone #: ext- [phone] 05/12/2020 02:23 ------ Patient: EDGARDO MANZANO Sex: F : 2000 Age: 20yFAMILY HISTORYFather: Schizophrenia.ADDITIONAL NOTESThe nursing notes have been reviewed.PHYSICAL EXAMVital Signs: 05/12/2020 02:24 BP: sitting 140/94. MAP: 109. HR: 90. RR: 16. O2 saturation: 99% on roomair. Temp: 98.3 F. Pain level now: 7/10.Appearance: Alert. No acute distress. Appearance is normal.HEENT: [...] arise. 3 Clinical Report - Physicians/Mid Levels [facility] Emergency Department [address] [place] [address] Phone #: ext- [phone] 05/12/2020 02:23 Patient: EDGARDO MANZANO Sex: F : 2000 Age: 20y Understanding of the discharge instructions verbalized. Follow-up with: Follow up in two days if not well.(Electronically signed by Elliot Elise 05/12/2020 03:26) Name Value Range Interpretation Code Description Data Lea rce(s) Supporting Document(s) Procedure Social History No Information
[2021-01-05 06:45] LABS: HEMATOCRIT 43.7 % (36.0-47.0); HEMOGLOBIN 15.1 g/dl (12.0-15.5); MEAN CORPUSCULAR HEMOGLOBIN 31.1 pg (27.0-33.0); MEAN CORPUSCULAR HGB CONC 34.6 g/dl (32.0-36.5); MEAN CORPUSCULAR VOLUME 90.1 fl (80.0-96.0); PLATELET COUNT, AUTOMATED 197 10^3/uL (150-450); RED BLOOD COUNT 4.85 10^6/uL (4.00-5.40); WHITE BLOOD COUNT 6.7 10^3/uL (4.0-10.0)
--- OUTSIDE RECORDS SUMMARY | 2021-01-05 06:48 | CCD ---
Author Author [facility] Organization [facility] Address Unknown Phone Unavailable Care Team Providers Care Senior Electrical Estimator Name Role Phone AMRIK, F TOBY DO [...] is protected by Article 27-F of the [facility] Public Health law. If you continue you may have access to information: Regarding HIV / AIDS; Provided by facilities licensed or operated by the [facility] Office of Mental Health; or Provided by the [facility] Office for People With Developmental Disabilities. If such information is present, then the following [facility] mandated warning applies: This information has [...] law may result in a fine or skilled nursing sentence or both. A general authorization for the release of medical or other information is NOT sufficient authorization for further disc losure. Encounters Encounter Providers Location Date Indications Data Source(s ) Emergency Attender: TOBY ELIZABETH DOConsultant: STAFF NON 07/07/2020 11:07:00 PM EDT - 07/08/2020 06:56:00 AM EDT [facility] Patient discharged. Emergency Attender: Elliot Elise MDConsultant: STAFF NON 06/27/2020 01:19:00 AM EDT - 06/27/2020 03:27:00 AM EDT [facility] Patient discharged. Emergency Attender: NALINI LANDISConsultant: STAFF NON 05/23/2020 07:02:00 PM EDT - 05/23/2020 07:06:[address] [facility] ital Patient discharged. Emergency Attender: Elliot Arik MDConsultant: STAFF NON 05/12/2020 02:24:00 AM EST - 05/12/2020 03:31:00 AM [facility] Patient discharged. Medications No Information Insurance Providers Payer name Policy type / Coverage type Policy ID Covered democrat ID Covered democrat's relationship to tristan Policy Tristan Plan Information [facility] ACTIVE DUTY [id number] SP [id number] [facility] HUMANA - O/P [id number] 18 [id number] Problems, Conditions, and Diagnoses Code Display Name Description Problem Type Effective Dates Data Source(s) Y929 [address] or not applicable Unspecified place or not applicable Diagnosis 07/07/2020 11:07:00 PM EDT [facility] [id number] Intentional self-harm by other specified means, initial encounter Intentional self-harm by other specified means, initial encounter Diagnosis 07/07/2020 11:07:00 PM EDT [facility] [id number] CONTACT WITH AND SUSPECTED EXPOSURE TO C OVID-19 CONTACT WITH AND SUSPECTED EXPOSURE TO COVID-19 Diagnosis 07/07/2020 11:07:[address] [facility] Y906 Blood alcohol level of 120-199 mg/100 ml Blood alcohol level of 120-199 mg/100 ml Diagnosis 07/07/2020 11:07:00 PM EDT [facility] [id number] Laceration without foreign body of left wrist, initial encounter Laceration without foreign body of left wrist, initial encounter Diagnosis 07/07/2020 11:07:00 PM EDT [facility] W53079 Nicotine dependence, other tobacco produ ct, uncomplicated Nicotine dependence, other tobacco product, uncomplicated Diagnosis 07/07 11:07:00 PM EDT [facility] F49748 Alcohol abuse with intoxication, uncompl icated Alcohol abuse with intoxication, uncomplicated Diagnosis 07/07/2020 11:07:00 PM EDT [facility] 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, single episod e, 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 Major depressive disorder, recurrent, mi ld Major depressive disorder, recurrent, mild Diagnosis 06/27/2020 01:19:00 AM EDT [facility] F419 Anxiety disorder, unspecified Anxiety disorder, unspec ified Diagnosis 06/27/2020 [facility] Procedure and treatment not carried out due to patient leaving prior to being seen by health care provider Procedure and treatment not carried out due to patient leaving prior to being seen by health care provider Diagnosis [facility]/23[facility] F[facility] Major depressive disorder, single episod e, unspecified Major depressive disorder, single episode, unspecified Diagnosis 05/12/2020 02:24:00 AM [facility] Surgeries/Procedures No Information Results ID Date Data Source [id number] 12/25/2020 10:10:00 PM EDT [facility] Name Value Range Interpretation Code Description Data Lea rce(s) Supporting Document(s) SARS coronavirus 2 RNA [Presence] in Res piratory specimen by CHIN with probe detection NEGATIVE [facility] This lab was ordered by [facility] a nd reported by [facility]. ID Date Data Source [id number] 12/10/2020 01:59:00 PM EDT [facility] Name Value Range Interpretation Code Description Data Lea rce(s) Supporting Document(s) SARS coronavirus 2 RNA [Presence] in Res piratory specimen by CHIN with probe detection NEGATIVE [facility] This lab was ordered by [facility] a nd reported by [facility]. ID Date Data Source [id number] 11/21/2020 04:51:00 AM EDT [facility] Name Value Range Interpretation Code Description Data Lea rce(s) Supporting Document(s) SARS coronavirus 2 RNA [Presence] in Res piratory specimen by CHIN with probe detection NEGATIVE [facility] This lab was ordered by [facility] a nd reported by [facility]. ID Date Data Source [id number] 07/08/2020 01:07:00 [place] [address] RESPIRATORY CARE REPORT ==== ---------NAME------- NUMBER SEX AGE ADMIT DISC. XRAY# F/C MARK Wetzel [id number] F 07/07/20 07/08/20 [id number] SB4 E/R DATE OF : 2000 M/R# [id number] #: [id number] TR-02 LOCATION: EMERGENCY DEPT EKG 67912 COMP LETE:07/08/20 01:43 AJP [id number] PHYSICIAN: AMRIK ANTOINE Name Value Range Interpretation Code Description Data Lea rce(s) Supporting Document(s) ID Date Data Source [id number] 07/07/2020 11:07:00 PM EDT [facility] 1 OrderSheet [facility] Emergency Department [address] [place] [address] Phone #: ext- [phone] 07/07/2020 22:48 Patient: [...] Physician;Urinalysis (Clean STAT 23:04 07/07/2020 23:15 Sunshine,Catch) Toyb Malik Physician;Urine Drug Screen STAT 23:04 07/07/2020 23:15 Toby Gonsalez Physician;Beta-HCG, Qual STAT 23:04 07/07/2020 23:15 Sunshine,Urine Toby Malik Physician;Acetaminophen STAT 23:04 07/07/2020 23:15 Sunshine,Level Toby Malik Physician;Salicylate Level STAT 23:04 07/07/2020 23:15 Toby Gonsalez Physician;COVID-19 CAH STAT 23:48 07/07/2020 Ack'd: 00:31 03:38 07/08/2020(Symptomatic as Toby Elizabeth 07/08/2020 Yan Gonsalez LauraDefined by CDC) Physician; King Starks(07/07/2020) (First 2 OrderSheet [facility] Emergency Department [address] [place] [address] Phone #: ext- [phone] 07/07/2020 22:48 Patient: [...] InitialedEKG 23:04 07/07/2020 23:15 Toby Gonsalez Physician;Transfer: ([facility]) 06:40 07/08/2020 06:44 Toby Heredia R.N. Physician;[Electronically signed by Toby Elizabeth (06:50 07/08/2020 )][Electronically signed by Ivory Heredia R.N. (06:56 07/08/2020)][Electronically locked by Ivory Heredia R.N. (06:56 07/08/2020)] Name Value Range Interpretation Code Description Data Lea rce(s) Supporting Document(s) ID Date Data Source [id number] 07/07/2020 11:07:00 PM EDT [facility] 1 Medication Reconciliation Report [facility] Emergency Department [address] [place] [address] Phone #: ext- [phone] 07/07/2020 22:48 Patient: [...] rce(s) Supporting Document(s) ID Date Data Source [id number] 07/07/2020 11:07:00 PM EDT [place] [address] Medication Administration Record [facility] Emergency Department [address] [place] [address] Phone #: ext- [phone] 07/07/2020 22:48 Patient: [...] rce(s) Supporting Document(s) ID Date Data Source [id number] 07/07/2020 11:07:00 PM EDT [facility] 1 General Instructions [facility] Emergency Department [address] [place] [address] Phone #: ext- [phone] 07/07/2020 22:48 Patient: [...] rce(s) Supporting Document(s) ID Date Data Source [id number] 07/07/2020 11:07:00 PM EDT [facility] 1 Clinical Report - Nurses [facility] Emergency Department [address] [place] [address] Phone #: ext- [phone] 07/07/2020 22:48 Patient: EDGARDO MANZANO Sex: F : 2000 Age: 20yTRIAGEArrived by private vehicle. Historian: patient. ( Patient states SI/HI, emotional distress due to personalstress.).Acuity: LEVEL 2.Chief Complaint: DEPRESSION and SUICIDAL THOUGHTS and THOUGHTS OF HARMING SELF andHOMICIDAL THOUGHTS.Alert. No acute distress.Onset: today.Treatment PET RESORT CONCIERGE:None.SEPSIS SCREEN: SIRS SCREEN NEGATIVE. SEPSIS SCREEN NEGATIVE. [...] because you 2 Clinical Report - Nurses [facility] Emergency Department [address] [place] [address] Phone #: ext- [phone] 07/07/2020 22:48 Patient: [...] Heredia R.N. 3 Clinical Report - Nurses [facility] Emergency Department [address] [place] [address] Phone #: ext- [phone] 07/07/2020 22:48 Patient: EDGARDO MANZANO Sex: F [...] care. Pt requesting to use bathroom. Nursing Product Advisor with pt for 1:1. Pt had lockedherself [...] and she hasreturned with a member from [facility] back into the bathroom. She was given a field test for alcohol bythe police but she is currently still at 1.1. As the night has progressed she has become difficult to redirect.At this moment she is in the bathroom with an assigned soldier. We continue to await medical clearance fortransfer to [facility] for a psychiatric evaluation.). --01:59 07/08/20 [...] with pt. Awaiting to hear back from [facility] to see if she will be accepting for psych unit.).--05:07 07/08/20 Ivory Heredia R.N.The patient is calm and resting quietly. ( Patient walked outside with commander for "fresh air". MDPalumbo okay with pt going outside with commander. Pt remains visible in outside camera. Pt walked backin onto stretcher with commander, remains calm and quiet. Awaiting to hear back from [facility] at this time.). 4 Clinical Report - Nurses [facility] Emergency Department [address] [place] [address] Phone #: ext- [phone] 07/07/2020 22:48 Patient: EDGARDO MANZANO Sex: F [...] awaiting for their arrival. Attempting to get [facility] to accept pt with PD as [...] 07/08/20 King Gonsalez.DISPOSITION / DISCHARGE Transferred to [facility]. Visit overview, summary of care (CCDA), Emtala forms and Face Sheet provided. Transported via (Pt being transfered to [facility] with PD). Report was given to a nurse via a phone call. Report included information regarding patient's care, treatment, allergies and condition including: recent changes and anticipated changes, current vital signs and abnormal labs. Report included treatment information regarding medications given or pending. All questions were answered. Report was acknowledged and care was transferred. (GURPREET Leija at [facility]). Patient's personal items include, PD took valuables with pt to be transfered to [facility]. --06:55 07/08/20 vIory Heredia R.N. 06:52 07/08/20. BP: unable to [...] Heredia R.N. 5 Clinical Report - Nurses [facility] Emergency Department [address] [place] [address] Phone #: ext- [phone] 07/07/2020 22:48 Patient: EDGARDO MANZANO Sex: F : 2000 Age: 20y Name Value Range Interpretation Code Description Data Lea rce(s) Supporting Document(s) ID Date Data Source [id number] 07/07/2020 11:07:00 PM EDT [facility] 1 Clinical Report - Physicians/Mid Levels [facility] Emergency Department [address] [place] [address] Phone #: ext- [phone] 07/07/2020 22:48 Patient: [...] normal. 2 Clinical Report - Physicians/Mid Levels [facility] Emergency Department [address] [place] [address] Phone #: ext- [phone] 07/07/2020 22:48 Patient: EDGARDO MANZANO Sex: F [...] process. COVID-19 CAH: (CUONG: 07/08/2020 03:31) ( [facility] 04[facility]02[facility] Final results Test Result Flag [...] CBC w Diff: (CUONG: 07/07/2020 23:10) ( [facility] 07/07/2020 23:26) Final results Test Result [...] 0.20) 3 Clinical Report - Physicians/Mid Levels [facility] Emergency Department [address] [place] [address] Phone #: ext- [phone] 07/07/2020 22:48 Patient: [...] Male GFR Interprentation 20-49 yrs >60 mL/min Ytqgda69-08 yrs >56 mL/min Normal 60- 69 yrs >49 mL/min Normal 70-79yrs>42 mL/min Normal 80 and above >35 mL/min Normal Female GFRInterpretation 20-39 yrs >60 mL/min Normal 40-49 yrs >58 mL/minNormal 50-59 yrs >51 mL/min Normal 60-69 yrs >45 mL/min Mqpzsb70-91 yrs >39 mL/min Normal 80 and above >32 mL/min NormalETOH: (CUONG: 07/07/2020 23:10) ( [facility] 07/07/2020 23:42) Final results Test Result Flag Units (Reference) ALCOHOL 194.0 MG/DL ALCOHOL % 0.19 H % (0.00 - 0.01) *FOR MEDICAL PURPOSES ONLY*TSH: (CUONG: 07/07/2020 23:10) ( [facility] 07/07/2020 23:47) Final results Test Result Flag Units (Reference) TSH 1.42 uIU/mL (0.47 - 5.01)Urinalysis: (CUONG: 07/07/2020 23:10) ( [facility] 07/07/2020 23:37) Final results Test Result Flag Units (Reference) URINALYSIS URINALYSIS SOURCE Clean Catch COLOR yellow (NORMAL: Yello CLARITY clear (NORMAL: Clear 4 Clinical Report - Physicians/Mid Levels [facility] Emergency Department [address] [place] [address] Phone #: ext- [phone] 07/07/2020 22:48 Patient: EDGARDO MANZANO Sex: F [...] Beta-HCG, Qual Urine: (CUONG: 07/07/2020 23:10) ( [facility] 07/07[facility] 23:30) Final results Test Result Flag Units (Reference) HCG URINE QUAL NEGATIVE (NORMAL: NEGAT HCG URINE QL REENTER NEGATIVE (NORMAL: NEGAT { KIT LOT # [id number] ){ KIT EXP DATE [id number] ){ PROCEDURAL CONTROL VALID ) Acetaminophen Level: (CUONG: 07/07/2020 23:10) ( [facility] 07/07/2020 23:37) Final results Test Result Flag Units (Reference) ACETAMINOPHEN <5.0 UG/ML (0.0 - 30.0) Salicylate Level: (CUONG: 07/07/2020 23:10) ( [facility] 07/07/2020 23:42) Final results Test Result Flag Units (Reference) SALICYLATE <0.3 L mg/dL (2.0 - 20.0). 5 Clinical Report - Physicians/Mid Levels [facility] Emergency Department [address] [place] [address] Phone #: ext- [phone] 07/07/2020 22:48 Patient: EDGARDO MANZANO Sex: F : [birth year] Age: 20yPROGRESS AND PROCEDURESCourse of Care: 23:Jul 07 2020. (Patient's history obtained and exam completed. treatment plandiscussed and agreed upon. Labs and EKG ordered. Patient agrees with transferred to [facility] for Psych.). 04:22 Jul 08 2020. (EOT at 0330 .08). 06:38 Jul 08 2020. (Patient accepted by dr Mac after report given.). 06:43 Jul 08 2020. (Patient had threatening outburst at staff. Discussed transfer to [facility] with Dr Mac he requests transfer via Police custody.). Disposition: Benefits, risks and alternatives to transfer explained to patient. Transferred to [facility]. Summary of care (CCDA) provided to via [...] rce(s) Supporting Document(s) ID Date Data Source [id number] 07/08/2020 04:21:00 AM EDT [facility] Name Value Range Interpretation Code Description Data [facility] rce(s) Supporting Document(s) Ethanol [Moles/volume] in Blood 76.6 MG/DL [facility] ALCOHOL % 0.08 % 0.00 - 0.01 H [facility] *FOR MEDICAL PURPOSES ONLY * ID Date Data Source [id number] 07/08/2020 03:31:00 AM EDT [facility] Name Value Range Interpretation Code Description Data [facility] rce(s) Supporting Document(s) COVID19 Case rprt NOT DETECTED [facility] This lab was ordered by [facility] and reported by [facility] ID Date Data Source [id number] 07/08/2020 04:02:00 AM EDT [facility] NOT DETECTEDNOT DETECTED{ PROC EDURAL CONTROL [...] rce(s) Supporting Document(s) ID Date Data Source [id number] 07/12/2020 09:18:00 PM EDT [facility] Name Value Range Interpretation Code Description Data Lea rce(s) Supporting Document(s) [facility] _CULTURE URINE_$$[id number]$$[id number]$$[id number]$$970121$$210226$$735211$$783161$$362149$$479586$$ 897733$$872138$$593155$$668350$$241650$$491212$$618776$$446286$$578818$$385633$$ 326523$$717913$$418863$$206119$$942326$$668692$$881201$$002636 -- Continued on next page --Patient: JOSE JUAN Wetzel Order: [id number] Page 2Culture: CULTURE URINE Status: Final ==== -- Continued on next page --Patient: JOSE JUAN REYNOSO Order: [id number] Page 2Culture: CULTURE URINE Status: Prelim =====$$[id number]$$[id number] DATE/TIME: 07/12/2020 16:07Culture: CULTURE URINE Status: FinalIsolate 1 Enterococcus faecalis Flag: A . . . . . . .710,000-25,000 colony forming units per mL Previous result entered on 07/11/2020 20:26 ET Microbiological testing to rule out the presence of possible pathogensis in progress.Urine Culture,Comprehensive: [id number] faecalis Flag: AIsolate 2 Escherichia coli Flag: [...] coli Flag: APatient: JOSE JUAN Wetzel Order: [id number] Page 3Culture: CULTURE URINE Status: Final ====ISOLATE 1 Enterococcus faecalisISOLATE 2 Escherichia coli Isolate 1 Isolate 2Antibiotic REESE Int REESE IntUnits ug/mL ug/mL Amoxicillin/Clavulanic Acid Ampicillin Cefepime Ceftriaxone Cefuroxime Ciprofloxacin S S Ertapenem Gentamicin Imipenem Levofloxacin S S Meropenem Nitrofurantoin S S Penicillin S S Piperacillin/Tazobactam Tetracycline R R Tobramycin Trimethoprim/Sulfa Vancomycin S S P1 Test performed by: [facility] #: [id number] [address] [id number] [facility] [id number] Director : Arnol Parmar MD NPI #:Order Processing Clerk : 07/12/20.0733.XMT.SENT REF 07/12/20.2118.XMT.SENT REF ID Date Data Source [id number] 07/07/2020 11:47:00 PM EDT [facility] Value Range Interpretation Code Description Data Lea rce(s) Supporting Document(s) Thyrotropin [Units/volume] in Serum or Plasma by Detec tion limit <= 0.05 mIU/L 1.42 uIU/mL 0.47 - 5.01 [facility] ID Date Data Source [id number] 07/07/2020 11:42:00 PM EDT [facility] Name Value Range Interpretation Code Description Data Lea rce(s) Supporting Document(s) SALICYLATE <0.3 mg/dL 2.0 - 20.0 L [facility] ID Date Data Source [id number] 07/07/2020 11:41:00 PM EDT [facility] Name Value Range Interpretation Code Description Data Lea rce(s) Supporting Document(s) Ethanol [Moles/volume] in Blood 194.0 MG/DL [facility] ALCOHOL % 0.19 % 0.00 - 0.01 H [facility] *FOR MEDICAL PURPOSES ONLY * ID Date Data Source [id number] 07/07/2020 11:41:00 PM EDT [facility] Value Range Interpretation Code Description Data Lea rce(s) Supporting Document(s) COMPREHENSIVE METABOLIC PANEL [facility] COMPREHENSIVE METABOLIC PANEL Sodium [Moles/volume] in Serum or Plasma 137 mEq/L 134 - 153 [facility] Potassium [Moles/volume] in Serum or Plasma 3.5 mEq/L 3.6 - 5.0 L [facility] Chloride [Moles/volume] in Serum or Plasma 107 mEq/L 98 - 107 [facility] Carbon dioxide, total [Moles/volume] in Serum or Plasma 18 MEQ/L 22 - 30 L [facility] Glucose [Mass/volume] in Serum or Plasma 116 MG/DL 70 - 99 H [facility] BUN 12 MG/DL 7 - 21 [facility] al Creatinine [Mass/volume] in Serum or Plasma 0.9 MG/DL 0.7 - 1.5 [facility] BUN/CREAT 13 8 - 27 [facility] al Protein [Mass/volume] in Serum or Plasma 7.7 G/DL 6.3 - 8.2 [facility] Albumin [Mass/volume] in Serum or Plasma 4.6 G/DL 3.9 - 5.0 [facility] Globulin [Mass/volume] in Serum by calculation 3.1 GM/DL 2.4 - 3.2 [facility] A/G RATIO 1.5 0.8 - 2.0 [facility] Calcium [Mass/volume] in Serum or Plasma 9.4 MG/DL 8.4 - 10.2 [facility] Bilirubin.total [Mass/volume] in Serum or Plasma <0.7 MG/DL 0.2 - 1.3 [facility] Alkaline phosphatase [Enzymatic activity/volume] in Serum or Plasma 60 U/L 38 - 126 [facility] Aspartate aminotransferase [Enzymatic activity/volume] in Serum or Plasma 23 U/L 5 - 40 [facility] Alanine aminotransferase [Enzymatic activity/volume] in Seru m or Plasma 14 U/L 7 - 56 [facility] Anion gap 3 in Serum or Plasma 12.0 mmol/L 8.0 - 16.0 [facility] AGE 20 yrs [facility] al NON-AA GFR >60 mL/min [facility] ital AFR AMER GFR >60 mL/min [facility] Male GFR In terprentation [...] >32 mL/min Normal ID Date Data Source [id number] 07/07/2020 11:41:00 PM EDT [facility] Name Value Range Interpretation Code Description Data Lea rce(s) Supporting Document(s) DRUG SCREEN URINE [facility] URINE DRUG SCREEN Amphetamine [Presence] in Urine by Screen method NEGATIVE NORMAL: N EGATIVE [facility] BARBITURATES NEGATIVE NORMAL: NEGATIVE [facility] BENZO NEGATIVE NORMAL: NEGATIVE [facility] COCAINE NEGATIVE NORMAL: NEGATIVE [facility] Tetrahydrocannabinol [Presence] in Urine NEGATIVE NORMAL: NEGATIVE [facility] OPIATES NEGATIVE NORMAL: NEGATIVE [facility] Phencyclidine [Presence] in Urine by Screen method NEGATIVE NOR MAL: NEGATIVE [facility] \\BLDo\\URINE DRUG SCR EEN INTERPRETATION\\BLDx\\ THE CUTOFFF LEVELS FOR DETECTION ARE FOLLOWS: AMPHETAMINES 1000 ng/ml BARBITUARATES 200 ng/ml BENZODIAZEPINES 100 ng/ml THC 50 ng/ml PHENCYCLIDINE 25 ng/ml OPIATES 300 ng/ml COCAINE 300 ng/ml ALL POSITIVES ARE CONSIDERED PRESUMPTIVE POSITIVE CONFIRMATION WILL BE PERFORMED AT PHYSICIAN REQUEST. ID Date Data Source [id number] 07/07/2020 11:36:00 PM EDT [facility] Name Value Range Interpretation Code Description Data Lea rce(s) Supporting Document(s) [facility]AL[facility] SOURCE Clean Catch [facility] COLOR yellow NORMAL: Yellow [facility] CLARITY clear NORMAL: Clear [facility] Specific gravity of Urine by Test strip 1.010 1.001 - 1.030 [facility] pH 6.5 5 - 9 [facility] al Glucose [Mass/volume] in Urine by Test strip NORM NORMAL: Negat abbe [facility] Bilirubin.total [Presence] in Urine by Test strip NEG NORMAL: Negative [facility] Ketones [Presence] in Urine by Test strip NEG NORMAL: Negative [facility] Protein [Mass/volume] in Urine by Test strip NEG NORMAL: Negat abbe [facility] Nitrite [Presence] in Urine by Test strip NEG NORMAL: Negative [facility] BLOOD NEG NORMAL: Negative [facility] Leukocyte esterase [Presence] in Urine by Test strip 500 RICH L: Negative A [facility] Urobilinogen [Mass/volume] in Urine by Test strip NOR less azul n 1.0 mg/dL [facility] MICROSCOPIC See Below [facility] ital WBC 5 - 7 NORMAL: NONE SEEN [facility] Erythrocytes [#/volume] in Urine by Test strip 0 - 1 NORMAL: NON E SEEN [facility] EPITHELIAL FEW NORMAL: NONE SEEN [facility] Bacteria [Presence] in Urine sediment by Light microscopy Tr navi NORMAL: NONE SEEN [facility] ID Date Data Source [id number] 07/07/2020 11:37:00 PM EDT [facility] Name Value Range Interpretation Code Description Data Lea rce(s) Supporting Document(s) Acetaminophen [Presence] in Urine <5.0 UG/ML 0.0 - 30.0 [facility] ID Date Data Source [id number] 07/07/2020 11:29:00 PM EDT [facility] Name Value Range Interpretation Code Description Data Lea rce(s) Supporting Document(s) HCG URINE QUAL NEGATIVE NORMAL: NEGATIVE [facility] HCG URINE QL REENTER NEGATIVE NORMAL: NEGATIVE [facility] { KIT LOT # [id number] ){ KIT EXP DATE 368342 ){ PROCEDURAL CONTROL VALID ) ID Date Data Source [id number] 07/07/2020 11:26:00 PM EDT [facility] Name Value Range Interpretation Code Description Data Lea rce(s) Supporting Document(s) CBC W/AUTOMATED DIFF [facility] COMPLETE BLOOD COUNT Leukocytes [#/volume] in Blood by Automated count 9.0 10^3/uL 4.2 - 1 1.0 [facility] Erythrocytes [#/volume] in Blood by Automated count 4.66 10^6/uL 4. 20 - 5.40 [facility] Hemoglobin [Mass/volume] in Blood 14.7 g/dL 12.0 - 16.0 [facility] Hematocrit [Volume Fraction] of Blood by Automated count 41.7 % 3 7.0 - 47.0 [facility] Erythrocyte mean corpuscular volume [Entitic volume] by Auto mated count 89.5 fL 81.0 - 101 [facility] Erythrocyte mean corpuscular hemoglobin [Entitic mass] by Automated count 31.5 pg 27.0 - 34.0 [facility] Erythrocyte mean corpuscular hemoglobin concentration [Mass/volume] by Automated count 35.3 g/dL 31.0 - 36.0 [facility] Erythrocyte distribution width [Ratio] by Automated count 12.5 % 11.5 - 14.5 [facility] Platelets [#/volume] in Blood by Automated count 206 10^3/uL 150 - 45 0 [facility] Platelet mean volume [Entitic volume] in Blood by Automated count 10.9 fL 7.4 - 10.4 H [facility] Neutrophils/100 leukocytes in Blood by Automated count 42.6 % 37. 0 - 80.0 [facility] Lymphocytes/100 leukocytes in Blood by Manual count 42.4 % 25.0 - 40.0 H [facility] Monocytes/100 leukocytes in Blood by Automated count 9.0 % 3.0 - 8.0 H [facility] Eosinophils/100 leukocytes in Blood by Automated count 4.8 % 0.0 - 7.0 [facility] Basophils/100 leukocytes in Blood by Automated count 0.6 % 0.0 - 2.5 [facility] %IG 0.6 % 0.0 - 0.0 H [facility] al %NRBC 0.0 % 0.0 - 0.0 [facility] al Neutrophils [#/volume] in Blood by Automated count 3.87 10^3/uL 2.00 - 6.90 [facility] Lymphocytes [#/volume] in Blood by Automated count 3.83 10^3/uL 0.60 - 3.40 H [facility] Monocytes [#/volume] in Blood by Automated count 0.81 10^3/uL 0.00 - 0.90 [facility] Eosinophils [#/volume] in Blood by Automated count 0.43 10^3/uL 0.00 - 0.70 [facility] Basophils [#/volume] in Blood by Automated count 0.05 10^3/uL 0.00 - 0.20 [facility] #IG 0.05 10^3/uL 0.00 - 0.10 [facility] #NRBC 0.00 10^3/uL 0.00 - 0.00 [facility] MANUAL DIFF NOT INDICATED [facility] RBC MORPH NOT INDICATED [facility] ID Date Data Source [id number] 06/27/2020 01:19:00 AM EDT [place] [address] Medication Reconciliation Report [facility] Emergency Department [address] [place] [address] Phone #: ext- [phone] 06/27/2020 01:19 Patient: [...] rce(s) Supporting Document(s) ID Date Data Source [id number] 06/27/2020 01:19:00 AM EDT [place] [address] Medication Administration Record [facility] Emergency Department [address] [place] [address] Phone #: ext- [phone] 06/27/2020 01:19 Patient: EDGARDO MANZANO Sex: F : 2000 Age: 20yWeight: 71.2 kgHeight/Length: 64 inBMI: 27ALLERGIES: No Known Drug AllergyDate/Time Medication Administered Medication Ordered Name Value Range Interpretation Code Description Data Lea rce(s) Supporting Document(s) ID Date Data Source [id number] 06/27/2020 01:19:00 AM EDT [facility] 1 General Instructions [facility] Emergency Department [address] [place] [address] Phone #: ext- [phone] 06/27/2020 01:19 Patient: [...] CLINIC Respective Team Cheryl [place], , , [id number] [facility] [address], , [place], [address] Follow up in two days. Call for [...] good care can greatly 2 General Instructions [facility] Emergency Department [address] [place] [address] Phone #: ext- [phone] 06/27/2020 01:19 Patient: [...] providers about all of the prescription and mode-umb-jxdlzbw medicines, and supplements you take. Certain supplements [...] to see if it can help. The [employer] operates a toll-free [place] information line at: [phone] (Voice); or [phone] (TTY). It can help you locate a local office.Follow-up careFollow up with your healthcare provider or therapist as advised. They can help you to find ways toimprove your life.Call [phone] if any of these happen: You have suicidal thoughts, a plan, and the means to harm yourself, or serious thoughts of hurting someone else 3 General Instructions [facility] Emergency Department [address] [place] [address] Phone #: ext- [phone] 06/27/2020 01:19 Patient: EDGARDO MANZANO Sex: F [...] another Being unable to care for yourself [id number] [place] [address]. All rights reserved. This information is not intended as asubstitute for professional medical care. Always follow your healthcare professional's instructions. You have been given the following additional information: Bipolar Disorder(Electronically signed by Elliot Elise 06/27/2020 03:45) Name Value Range Interpretation Code Description Data Lea rce(s) Supporting Document(s) ID Date Data Source [id number] 06/27/2020 01:19:00 AM EDT [facility] 1 Clinical Report - Nurses [facility] Emergency Department [address] [place] [address] Phone #: ext- [phone] 06/27/2020 01:19 Patient: [...] to arrival. She describes feelings of depression.Treatment PET RESORT CONCIERGE:None. --01:40 06/27/20 Lisa Lee R.N.01:33 06/27/20. BP: [...] The patient 2 Clinical Report - Nurses [facility] Emergency Department [address] [place] [address] Phone #: ext- [phone] 06/27/2020 01:19 [id number]: [facility] : 2000 Age: 20y reports [...] Borderline personality disorder. --02:36 06/27/20 Elliot Elise.PHYSICAL AUIFMULPQX03:33 06/27/20. Ambulatory to room. Patient gowned.GENERAL / [...] 15 minutes. 3 Clinical Report - Nurses [facility] Emergency Department [address] [place] [address] Phone #: ext- [phone] 06/27/2020 01:19 Patient: [...] Patient verbalized understanding. Written instructions provided in Guamanian. The patient was discharged by the physician. She was discharged home and accompanied by pig furnace operator. She left ambulatory and via private vehicle. Linoleum Layer Helper driving. --03:53 06/27/20 Lisa Lee R.N. 03:50 06/27/20. BP: deferred. HR: deferred. RR: deferred. O2 saturation: deferred. Temp: deferred. Pain level now deferred. --03:53 06/27/20 Lisa Lee R.N.Locked/Released at 06/27/2020 04:25 by Lisa Lee R.N. Name Value Range Interpretation Code Description Data Lea rce(s) Supporting Document(s) ID Date Data Source [id number] 06/27/2020 01:19:00 AM EDT [facility] 1 Clinical Report - Physicians/Mid Levels [facility] Emergency Department [address] [place] [address] Phone #: ext- [phone] 06/27/2020 01:19 [id number] Sex[facility] Rashard : 2000 Age: 20y Time [...] Allergy. 2 Clinical Report - Physicians/Mid Levels [facility] Emergency Department [address] [place] [address] Phone #: ext- [phone] 06/27/2020 01:19 Patient: [...] arise. 3 Clinical Report - Physicians/Mid Levels [facility] Emergency Department [address] [place] [address] Phone #: ext- [phone] 06/27/2020 01:19 Patient: EDGARDO MANZANO Sex: F : 2000 Age: 20y Understanding of the discharge instructions verbalized by patient. Follow- up with: [facility] Respective Team Cheryl [place], , , [id number] [facility] [address], , [place], [address] Follow up in two days. Call for an appointment.(Electronically signed by Elliot Elise 06/27/2020 03:45) Name Value Range Interpretation Code Description Data Lea rce(s) Supporting Document(s) ID Date Data Source [id number] 06/20/2020 09:40:00 AM EDT [facility] Name Value Range Interpretation Code Description Data Lea rce(s) Supporting Document(s) SARS coronavirus 2 RNA Not Detected [facility] This lab was ordered by [facility] and reported by [facility]. ID Date Data Source [id number] 05/23/2020 07:02:00 PM EDT [facility] 1 Medication Reconciliation Report [facility] Emergency Department [address] [place] [address] Phone #: ext- [phone] 05/23/2020 18:53 Patient: [...] rce(s) Supporting Document(s) ID Date Data Source [id number] 05/23/2020 07:02:00 PM EDT [facility] 1 Medication Administration Record [facility] Emergency Department [address] [place] [address] Phone #: ext- [phone] 05/23/2020 18:53 Patient: EDGARDO MANZANO Sex: F : 2000 Age: 20yWeight: 71.2 kgHeight/Length: 64 inBMI: 27ALLERGIES: NoneDate/Time Medication Administered Medication Ordered Name Value Range Interpretation Code Description Data [facility](s) Supporting Document(s) ID Date Data Source [id number] 05/23/2020 07:02:00 PM EDT [facility] 1 Clinical Report - Nurses [facility] Emergency Department [address] [place] [address] Phone #: ext [phone] 05/23/2020 18:53 Patient: EDGARDO MANZANO Sex: F : 2000 Age: 20yTRIAGEArrived by private vehicle. Historian: patient. Unaccompanied. ( pt states that she is anxious but doesnot appear to be at this time).Acuity: LEVEL 5.Chief Complaint: ANXIETY and (anxiety).Alert. No acute distress.Onset: today. The patient has had anxiety.Treatment PET RESORT CONCIERGE:None.SEPSIS SCREEN: SIRS SCREEN NEGATIVE. SEPSIS SCREEN NEGATIVE. [...] MRSA. Staff 2 Clinical Report - Nurses [facility] Emergency Department [address] [place] [address] Phone #: ext- [phone] 05/23/2020 18:53 Patient: EDGARDO MANZANO Sex: F [...] Christian R.N. 3 Clinical Report - Nurses [facility] Emergency Department [address] [place] [address] Phone #: ext- [phone] 05/23/2020 18:53 Patient: EDGARDO MANZANO Sex: F : 2000 Age: 20yLocked/Released at 05/23/2020 19:12 by Hanane Christian R.N. Name Value Range Interpretation Code Description Data Lea rce(s) Supporting Document(s) ID Date Data Source [id number] 05/12/2020 02:24:00 AM EST [facility] 1 Medication Reconciliation Report [facility] Emergency Department [address] [place] [address] Phone #: ext- [phone] 05/12/2020 02:23 Patient: [...] e(s) Supporting Document(s) ID Date Data Source [id number] 05/12/2020 02:24:00 AM [facility] 1 Medication Administration Record [facility] Emergency Department [address] [place] [address] Phone #: ext- [phone] 05/12/2020 02:23 Patient: EDGARDO MANZANO Sex: F : 2000 Age: 20yWeight: 63.5 kgHeight/Length: 64 inBMI: 24ALLERGIES: No Known Drug AllergyDate/Time Medication Administered Medication Ordered Name Value Range Interpretation Code Description Data [facility](s) Supporting Document(s) ID Date Data Source [id number] 05/12/2020 02:24:00 AM [facility] 1 General Instructions [facility] Emergency Department [address] [place] [address] Phone #: ext- [phone] 05/12/2020 02:23 Patient: EDGARDO MANZANO Sex: F [...] Feeling depressed or withdrawn 2 General Instructions [facility] Emergency Department [address] [place] [address] Phone #: ext- [phone] 05/12/2020 02 :23 [id number] Sex[facility] F : 2000 Age: 20y Loss [...] providers about all of the prescription and anoq-xxn-tspcrux medicines, vitamins, and supplements you take. Certain [...] with your healthcare provider, or as advised.Call [phone] if you: Have suicidal thoughts, a suicide plan, and the means to carry out the plan; or serious 3 General Instructions [facility] Emergency Department [address] [place] [address] Phone #: ext- [phone] 05/12/2020 02:23 Patient: [...] and ask you to seek help [employer]. [address] [place] [address], [place] [address]. All rights reserved. This information is not intended as asubstitute for professional medical care. Always follow your healthcare professional's instructions. You have been given the following additional information: Depression(Electronically signed by Elliot Elise 05/12/2020 03:26) Name Value Range Interpretation Code Description Data Lea rce(s) Supporting Document(s) ID Date Data Source [id number] 05/12/2020 02:24:00 AM EST [facility] 1 Clinical Report - Nurses [facility] Emergency Department [address] [place] [address] Phone #: ext- [phone] 05/12/2020 02:23 Patient: [...] SORE THROAT.Alert. No acute distress.Onset. (4 weeks).Treatment PET RESORT CONCIERGE:None.SEPSIS SCREEN: SIRS SCREEN NEGATIVE. SEPSIS SCREEN NEGATIVE. [...] in your 2 Clinical Report - Nurses [facility] Emergency Department [address] [place] [address] Phone #: ext- [phone] 05/12/2020 02:23 Patient: [...] Patient verbalized understanding. Written instructions provided in Guamanian. No medication instructions or treatment instructions. The [...] on room 3 Clinical Report - Nurses [facility] Emergency Department [address] [place] [address] Phone #: ext- [phone] 05/12/2020 02:23 Patient: EDGARDO MANZANO Sex: F : 2000 Age: 20y air. Temp: 97.8 F (oral). Pain level now: 0. --03:32 05/12/20 King Gonsalez.Locked/Released at 05/12/2020 03:32 by King Gonsalez Name Value Range Interpretation Code Description Data Lea rce(s) Supporting Document(s) ID Date Data Source [id number] 05/12/2020 02:24:00 AM EST [facility] 1 Clinical Report - Physicians/Mid Levels [facility] Emergency Department [address] [place] [address] Phone #: ext- [phone] 05/12/2020 02:23 Patient: [...] was admitted one time last year in [place] for depression. Patient feels alone sometimes and gets frustrated. Patient was on Aderall for ADD in high school. Patient already seen at [facility] and is connected to therapist and psychiatrist. [...] stay. 2 Clinical Report - Physicians/Mid Levels [facility] Emergency Department [address] [place] [address] Phone #: ext- [phone] 05/12/2020 02:23 ------ [...] arise. 3 Clinical Report - Physicians/Mid Levels [facility] Emergency Department [address] [place] [address] Phone #: ext- [phone] 05/12/2020 02:23 Patient: EDGARDO MANZANO Sex: F : 2000 Age: 20y Understanding of the discharge instructions verbalized. Follow-up with: Follow up in two days if not well.(Electronically signed by Elliot Elise 05/12/2020 03:26) Name Value Range Interpretation Code Description Data Lea rce(s) Supporting Document(s) Procedure Social History No Information
[2021-01-05 06:55] LABS: AMPHETAMINES LEVEL URINE NEGATIVE (NEGATIVE); BARBITURATES URINE NEGATIVE (NEGATIVE); BENZODIAZEPINES URINE NEGATIVE (NEGATIVE); CANNABINOIDS URINE NEGATIVE (NEGATIVE); COCAINE METABOLITE URINE NEGATIVE (NEGATIVE); METHADONE URINE NEGATIVE (NEGATIVE); OPIATES URINE NEGATIVE (NEGATIVE); PHENCYCLIDINE URINE NEGATIVE (NEGATIVE)
[2021-01-05 06:56] LABS: HCG, SERUM QUALITATIVE NEGATIVE (NEGATIVE)
[2021-01-05 07:06] LABS: ACETAMINOPHEN LEVEL < 2.0 UG/ML (10.0-30.0); ALBUMIN 4.2 GM/DL (3.2-5.2); ALT/SGPT 25 U/L (12-78); BILIRUBIN,DIRECT 0.1 MG/DL (0.0-0.2); BILIRUBIN,TOTAL 0.5 MG/DL (0.2-1.0); BLOOD UREA NITROGEN 12 MG/DL (7-18); CALCIUM LEVEL 9.2 MG/DL (8.5-10.1); CARBON DIOXIDE LEVEL 27 MEQ/L (21-32); CHLORIDE LEVEL 105 MEQ/L (98-107); CREATININE FOR GFR 0.95 MG/DL (0.55-1.30); ETHYL ALCOHOL (ETHANOL) < 0.003 % (0.000-0.010); GLOMERULAR FILTRATION RATE > 60.0 (>60); GLUCOSE, FASTING 91 MG/DL (70-100); POTASSIUM SERUM 4.5 MEQ/L (3.5-5.1); SALICYLATE LEVEL < 1.7 MG/DL (5.0-30.0); SODIUM LEVEL 140 MEQ/L (136-145); TOTAL PROTEIN 8.2 GM/DL (6.4-8.2)
[2021-01-05] MEDS ORDERED: CETIRIZINE (ZyrTEC) 10 MG TAB PO ONE (09:00)
[2021-01-05 18:08] LABS: RSV AMPLIFICATION NEGATIVE (NEGATIVE)
[2021-01-05] MEDS ORDERED: MOM 30ML SUSPENSION UDC PO PRN (18:25)
[2021-01-05] MEDS ORDERED: MAALOX 30 ML SUSP *UDC PO PRN (18:25)
[2021-01-05] MEDS ORDERED: ACETAMINOPHEN TAB 650MG DOSE (2X325MG) PO PRN (18:25)
--- OUTSIDE RECORDS SUMMARY | 2021-01-05 18:46 | CCD ---
Author Author [facility] Organization [facility] Address Unknown Phone Unavailable Care Team Providers Care Case Consultant Name Role Phone AMRIK, F TOBY DO [...] is protected by Article 27-F of the [facility] Public Health law. If you continue you may have access to information: Regarding HIV / AIDS; Provided by facilities licensed or operated by the [facility] Office of Mental Health; or Provided by the [facility] Office for People With Developmental Disabilities. If such information is present, then the following [facility] mandated warning applies: This information has [...] law may result in a fine or residential sentence or both. A general authorization for the release of medical or other information is NOT sufficient authorization for further disc losure. Encounters Encounter Providers Location Date Indications Data Source(s ) Emergency Attender: TOBY ELIZABETH DOConsultant: STAFF NON 07/07/2020 11:07:00 PM EDT - 07/08/2020 06:56:00 AM EDT [facility] Patient discharged. Emergency Attender: Elliot Elise MDConsultant: STAFF NON 06/27/2020 01:19:00 AM EDT - 06/27/2020 03:27:00 AM EDT [facility] Patient discharged. Emergency Attender: NALINI LANDISConsultant: STAFF NON 05/23/2020 07:02:00 PM EDT - 05/23/2020 07:06:00 PM EDT [facility] ital Patient discharged. Emergency Attender: Elliot Arik MDConsultant: STAFF NON 05/12/2020 02:24:00 AM EST - 05/12/2020 03:31:00 AM [facility] Patient discharged. Medications No Information Insurance Providers Payer name Policy type / Coverage type Policy ID Covered green party ID Covered green party's relationship to tristan Policy Tristan Plan Information [facility] ACTIVE DUTY [id number] SP [id number] [facility] HUMANA - O/P [id number] Problems, Conditions, and Diagnoses Code Display Name Description Problem Type Effective Dates Data Source(s) Y929 [address] or not applicable Unspecified place or not applicable Diagnosis 07/07/2020 11:07:00 PM EDT [facility] [id number] Intentional self-harm by other specified means, initial encounter Intentional self-harm by other specified means, initial encounter Diagnosis 07/07/2020 11:07:00 PM EDT [facility] [id number] CONTACT WITH AND SUSPECTED EXPOSURE TO C OVID-19 CONTACT WITH AND SUSPECTED EXPOSURE TO COVID-19 Diagnosis 07/07/2020 11:07:00 PM EDT [facility] Y906 Blood alcohol level of 120-199 mg/100 ml Blood alcohol level of 120-199 mg/100 ml Diagnosis 07/07/2020 11:07:00 PM EDT [facility] [id number] Laceration without foreign body of left wrist, initial encounter Laceration without foreign body of left wrist, initial encounter Diagnosis 07/07/2020 11:07:00 PM EDT [facility] S69716 Nicotine dependence, other tobacco produ ct, uncomplicated Nicotine dependence, other tobacco product, uncomplicated Diagnosis 07/07 11:07:00 PM EDT [facility] E18506 Alcohol abuse with intoxication, uncompl icated Alcohol abuse with intoxication, uncomplicated Diagnosis 07/07/2020 11:07:00 PM EDT [facility] 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, single episod e, 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, single episode, severe with psychotic features Diagnosis 07/07/2020 11:07:00 PM EDT [facility] [id number] Suicidal ideations Suicidal ideations Diagnosis [facility] Major depressive disorder, recurrent, mi ld Major depressive disorder, recurrent, mild Diagnosis 06/27/2020 01:19:00 AM EDT [facility] F419 Anxiety disorder, unspecified Anxiety disorder, unspec ified Diagnosis 06/27/2020 [facility] Procedure and treatment not carried out due to patient leaving prior to being seen by health care provider Procedure and treatment not carried out due to patient leaving prior to being seen by health care provider Diagnosis 05/23/2020 07[facility] Major depressive disorder, single episod e, unspecified Major depressive disorder, single episode, unspecified Diagnosis 05/12/2020 02:24:00 AM [facility] Surgeries/Procedures No Information Results ID Date Data Source [id number] 12/25/2020 10:10:00 PM EDT [facility] Name Value Range Interpretation Code Description Data Lea rce(s) Supporting Document(s) SARS coronavirus 2 RNA [Presence] in Res piratory specimen by CHIN with probe detection NEGATIVE [facility] This lab was ordered by [facility] a nd reported by [facility]. ID Date Data Source [id number] 12/10/2020 01:59:00 PM EDT [facility] Name Value Range Interpretation Code Description Data Lea rce(s) Supporting Document(s) SARS coronavirus 2 RNA [Presence] in Res piratory specimen by CHIN with probe detection NEGATIVE [facility] This lab was ordered by [facility] a nd reported by [facility]. ID Date Data Source [id number] 11/21/2020 04:51:00 AM EDT [facility] Name Value Range Interpretation Code Description Data Lea rce(s) Supporting Document(s) SARS coronavirus 2 RNA [Presence] in Res piratory specimen by CHIN with probe detection NEGATIVE [facility] This lab was ordered by [facility] a nd reported by [facility]. ID Date Data Source [id number] 07/08/2020 01:07:00 [place] [address] RESPIRATORY CARE REPORT ==== ---------NAME------- NUMBER SEX AGE ADMIT DISC. XRAY# F/C MARK Wetzel [id number] F 07/07/20 07/08/20 [id number] SB4 E/R DATE OF : 2000 M/R# [id number] #: [id number] TR-02 LOCATION: EMERGENCY DEPT EKG 41622 COMP LETE:07/08/20 01:43 AJP 53471 PHYSICIAN: AMRIK ANTOINE Name Value Range Interpretation Code Description Data Lea rce(s) Supporting Document(s) ID Date Data Source [id number] 07/07/2020 11:07:00 PM EDT [facility] 1 OrderSheet [facility] Emergency Department [address] [place] [address] Phone #: ext- [phone] 07/07/2020 22:48 Patient: [...] Physician;Urine Drug Screen STAT 23:04 07/07/2020 23:15 Tboy Gonsalez Physician;Beta-HCG, Qual STAT 23:04 07/07/2020 23:15 Sunshine,Urine Toby Malik Physician;Acetaminophen STAT 23:04 07/07/2020 23:15 Sunshine,Level Toby Malik Physician;Salicylate Level STAT 23:04 07/07/2020 23:15 Toby Gonsalez Physician;COVID-19 CAH STAT 23:48 07/07/2020 Ack'd: 00:31 03:38 07/08/2020(Symptomatic as Toby Elizabeth 07/08/2020 Yan Gonsalez LauraDefined by CDC) Physician; King Starks(07/07/2020) (First 2 OrderSheet [facility] Emergency Department [address] [place] [address] Phone #: ext- [phone] 07/07/2020 22:48 Patient: [...] rce(s) Supporting Document(s) ID Date Data Source [id number] 07/07/2020 11:07:00 PM EDT [facility] 1 Medication Reconciliation Report [facility] Emergency Department [address] [place] [address] Phone #: ext- [phone] 07/07/2020 22:48 Patient: [...] rce(s) Supporting Document(s) ID Date Data Source [id number] 07/07/2020 11:07:00 PM EDT [place] [address] Medication Administration Record [facility] Emergency Department [address] [place] [address] Phone #: ext- [phone] 07/07/2020 22:48 Patient: [...] rce(s) Supporting Document(s) ID Date Data Source [id number] 07/07/2020 11:07:00 PM EDT [facility] 1 General Instructions [facility] Emergency Department [address] [place] [address] Phone #: ext- [phone] 07/07/2020 22:48 Patient: [...] rce(s) Supporting Document(s) ID Date Data Source [id number] 07/07/2020 11:07:00 PM EDT [facility] 1 Clinical Report - Nurses [facility] Emergency Department [address] [place] [address] Phone #: ext- [phone] 07/07/2020 22:48 Patient: EDGARDO MANZANO Sex: F : 2000 Age: 20yTRIAGEArrived by private vehicle. Historian: patient. ( Patient states SI/HI, emotional distress due to personalstress.).Acuity: LEVEL 2.Chief Complaint: DEPRESSION and SUICIDAL THOUGHTS and THOUGHTS OF HARMING SELF andHOMICIDAL THOUGHTS.Alert. No acute distress.Onset: today.Treatment CLINICAL ASSOCIATE:None.SEPSIS SCREEN: SIRS SCREEN NEGATIVE. SEPSIS SCREEN NEGATIVE. [...] because you 2 Clinical Report - Nurses [facility] Emergency Department [address] [place] [address] Phone #: ext- [phone] 07/07/2020 22:48 Patient: [...] Heredia R.N. 3 Clinical Report - Nurses [facility] Emergency Department [address] [place] [address] Phone #: ext- [phone] 07/07/2020 22:48 Patient: EDGARDO MANZANO Sex: F [...] care. Pt requesting to use bathroom. Nursing Events Assistant with pt for 1:1. Pt had lockedherself [...] and she hasreturned with a member from [place] back into the bathroom. She was given [...] this time.). 4 Clinical Report - Nurses [facility] Emergency Department [address] [place] [address] Phone #: ext- [phone] 07/07/2020 22:48 Patient: EDGARDO MANZANO Sex: F [...] 07/08/20 King Gonsalez.DISPOSITION / DISCHARGE Transferred to [facility]. Visit overview, summary of care (CCDA), [...] Heredia R.N. 5 Clinical Report - Nurses [facility] Emergency Department [address] [place] [address] Phone #: ext- [phone] 07/07/2020 22:48 Patient: EDGARDO MANZANO Sex: F : 2000 Age: 20y Name Value Range Interpretation Code Description Data Lea rce(s) Supporting Document(s) ID Date Data Source [id number] 07/07/2020 11:07:00 PM EDT [facility] 1 Clinical Report - Physicians/Mid Levels [facility] Emergency Department [address] [place] [address] Phone #: ext- [phone] 07/07/2020 22:48 Patient: [...] normal. 2 Clinical Report - Physicians/Mid Levels [facility] Emergency Department [address] [place] [address] Phone #: ext- [phone] 07/07/2020 22:48 Patient: EDGARDO MANZANO Sex: F [...] EKGEKG: Normal EKG. Normal sinus rhythm. Normal IL interval. Normal QRS complexes. Normal STs and Twaves. No ectopy.Laboratory Tests: Laboratory tests have been ordered, with results reviewed and considered in themedical decision making process. COVID-19 CAH: (CUONG: 07/08/2020 03:31) ( [facility] [place] 04:02[place] Final results [...] CBC w Diff: (CUONG: 07/07/2020 23:10) ( [facility] [place] 07/07/2020 23:26) Final [...] 0.20) 3 Clinical Report - Physicians/Mid Levels [facility] Emergency Department [address] [place] [address] Phone #: ext- [phone] 07/07/2020 22:48 Patient: [...] Male GFR Interprentation 20-49 yrs >60 mL/min Gytjto22-95 yrs >56 mL/min Normal 60- 69 yrs >49 mL/min Normal 70-79yrs>42 mL/min Normal 80 and above >35 mL/min Normal Female GFRInterpretation 20-39 yrs >60 mL/min Normal 40-49 yrs >58 mL/minNormal 50-59 yrs >51 mL/min Normal 60-69 yrs >45 mL/min Qknesk66-62 yrs >39 mL/min Normal 80 and above >32 mL/min NormalETOH: (CUONG: 07/07/2020 23:10) ( [facility] 07/07/2020 23:42) Final results Test Result Flag Units (Reference) ALCOHOL 194.0 MG/DL ALCOHOL % 0.19 H % (0.00 - 0.01) *FOR MEDICAL PURPOSES ONLY*TSH: (CUONG: 07/07/2020 23:10) ( [facility] 07/07/2020 23:47) Final results Test Result Flag Units (Reference) TSH 1.42 uIU/mL (0.47 - 5.01)Urinalysis: (CUONG: 07/07/2020 23:10) ( [facility] 07/07/2020 23:37) Final results Test Result Flag Units (Reference) URINALYSIS URINALYSIS SOURCE Clean Catch COLOR yellow (NORMAL: Yello CLARITY clear (NORMAL: Clear 4 Clinical Report - Physicians/Mid Levels [facility] Emergency Department [address] [place] [address] Phone #: ext- [phone] 07/07/2020 22:48 Patient: EDGARDO MANZANO Sex: F [...] Beta-HCG, Qual Urine: (CUONG: 07/07/2020 23:10) ( [facility] [place] [place] 23:30) Final results Test Result Flag Units (Reference) HCG URINE QUAL NEGATIVE (NORMAL: NEGAT HCG URINE QL REENTER NEGATIVE (NORMAL: NEGAT { KIT LOT # [id number] ){ KIT EXP DATE [id number] ){ PROCEDURAL CONTROL VALID ) Acetaminophen Level: (CUONG: 07/07/2020 23:10) ( [facility] [place]07[place] 23:37) Final results Test Result Flag Units (Reference) ACETAMINOPHEN <5.0 UG/ML (0.0 - 30.0) Salicylate Level: (CUONG: 07/07/2020 23:10) ( [facility] [place]07[place] 23:42) Final results Test Result Flag Units (Reference) SALICYLATE <0.3 L mg/dL (2.0 - 20.0). 5 Clinical Report - Physicians/Mid Levels [facility] Emergency Department [address] [place] [address] Phone #: ext- [phone] 07/07/2020 22:48 Patient: EDGARDO MANZANO Sex: F [...] to transfer explained to patient. Transferred to [facility]. Summary of care (CCDA) provided to [...] rce(s) Supporting Document(s) ID Date Data Source [id number] 07/08/2020 04:21:00 AM EDT [facility] Name Value Range Interpretation Code Description Data [facility] rce(s) Supporting Document(s) Ethanol [Moles/volume] in Blood 76.6 MG/DL [facility] ALCOHOL % 0.08 % 0.00 - 0.01 H [facility] ital *FOR MEDICAL PURPOSES ONLY * ID Date Data Source [id number] 07/08/2020 03:31:00 AM EDT [facility] Name Value Range Interpretation Code Description Data [facility] rce(s) Supporting Document(s) COVID19 Case rprt NOT DETECTED [facility] This lab was ordered by [facility] and reported by [facility]. ID Date Data Source [id number] 07/08/2020 04:02:00 AM EDT [facility] NOT DETECTEDNOT DETECTED{ PROC EDURAL CONTROL [...] rce(s) Supporting Document(s) ID Date Data Source [id number] 07/12/2020 09:18:00 PM EDT [facility] Name Value Range Interpretation Code Description Data Lea rce(s) Supporting Document(s) CULTURE URINE [facility] _CULTURE URINE_$$[id number]$$[id number]$$[id number]$$261640$$[id number]$$071648$$867114$$071235$$583977$$ 205843$$117784$$335392$$729644$$815299$$469427$$375601$$859427$$439263$$058457$$ 391777$$270037$$492472$$993960$$398288$$799837$$793270$$207837 -- Continued on next page --Patient: JOSE JUAN Wetzel Order: [id number] Page 2Culture: CULTURE URINE Status: Final ==== -- Continued on next page --Patient: JOSE JUAN REYNOSO Order: [id number] Page 2Culture: CULTURE URINE Status: Prelim =====$$[id number]$$[id number] DATE/TIME: 07/12/2020 16:07Culture: CULTURE URINE Status: FinalIsolate 1 Enterococcus faecalis Flag: A . . . . . . .710,000-25,000 colony forming units per mL Previous result entered on 07/11/2020 20:26 ET Microbiological testing to rule out the presence of possible pathogensis in progress.Urine Culture,Comprehensive: [id number] faecalis Flag: AIsolate 2 Escherichia coli Flag: [...] coli Flag: APatient: JOSE JUAN Wetzel Order: [id number] Page 3Culture: CULTURE URINE Status: Final ====ISOLATE 1 Enterococcus faecalisISOLATE 2 Escherichia coli Isolate 1 Isolate 2Antibiotic REESE Int REESE IntUnits ug/mL ug/mL Amoxicillin/Clavulanic Acid Ampicillin Cefepime Ceftriaxone Cefuroxime Ciprofloxacin S S Ertapenem Gentamicin Imipenem Levofloxacin S S Meropenem Nitrofurantoin S S Penicillin S S Piperacillin/Tazobactam Tetracycline R R Tobramycin Trimethoprim/Sulfa Vancomycin S S P1 Test performed by: [facility] #: [id number] [address] [id number] [facility] [id number] Director : Arnol Parmar MD NPI #:Videogame Tester : 07/12/20.0733.XMT.SENT REF 07/12/20.2118.XMT.SENT REF ID Date Data Source [id number] 07/07/2020 11:47:00 PM EDT [facility] Value Range Interpretation Code Description Data Lea rce(s) Supporting Document(s) Thyrotropin [Units/volume] in Serum or Plasma by Detec tion limit <= 0.05 mIU/L 1.42 uIU/mL 0.47 - 5.01 [facility] ID Date Data Source [id number] 07/07/2020 11:42:00 PM EDT [facility] Name Value Range Interpretation Code Description Data Lea rce(s) Supporting Document(s) SALICYLATE <0.3 mg/dL 2.0 - 20.0 L [facility] ID Date Data Source [id number] 07/07/2020 11:41:00 PM EDT [facility] Name Value Range Interpretation Code Description Data Lea rce(s) Supporting Document(s) Ethanol [Moles/volume] in Blood 194.0 MG/DL [facility] ALCOHOL % 0.19 % 0.00 - 0.01 H [facility] ital *FOR MEDICAL PURPOSES ONLY * ID Date Data Source [id number] 07/07/2020 11:41:00 PM EDT [facility] Value Range Interpretation Code Description Data Lea rce(s) Supporting Document(s) COMPREHENSIVE METABOLIC PANEL [facility] COMPREHENSIVE METABOLIC PANEL Sodium [Moles/volume] in Serum or Plasma 137 mEq/L 134 - 153 [facility] Potassium [Moles/volume] in Serum or Plasma 3.5 mEq/L 3.6 - 5.0 L [facility] Chloride [Moles/volume] in Serum or Plasma 107 mEq/L 98 - 107 [facility] Carbon dioxide, total [Moles/volume] in Serum or Plasma 18 MEQ/L 22 - 30 L [facility] Glucose [Mass/volume] in Serum or Plasma 116 MG/DL 70 - 99 H [facility] BUN 12 MG/DL 7 - 21 [facility] al Creatinine [Mass/volume] in Serum or Plasma 0.9 MG/DL 0.7 - 1.5 [facility] BUN/CREAT 13 8 - 27 [facility] al Protein [Mass/volume] in Serum or Plasma 7.7 G/DL 6.3 - 8.2 [facility] Albumin [Mass/volume] in Serum or Plasma 4.6 G/DL 3.9 - 5.0 [facility] Globulin [Mass/volume] in Serum by calculation 3.1 GM/DL 2.4 - 3.2 [facility] A/G RATIO 1.5 0.8 - 2.0 [facility] Calcium [Mass/volume] in Serum or Plasma 9.4 MG/DL 8.4 - 10.2 [facility] Bilirubin.total [Mass/volume] in Serum or Plasma <0.7 MG/DL 0.2 - 1.3 [facility] Alkaline phosphatase [Enzymatic activity/volume] in Serum or Plasma 60 U/L 38 - 126 [facility] Aspartate aminotransferase [Enzymatic activity/volume] in Serum or Plasma 23 U/L 5 - 40 [facility] Alanine aminotransferase [Enzymatic activity/volume] in Seru m or Plasma 14 U/L 7 - 56 [facility] Anion gap 3 in Serum or Plasma 12.0 mmol/L 8.0 - 16.0 [facility] AGE 20 yrs [facility] al NON-AA GFR >60 mL/min [facility] ital AFR AMER GFR >60 mL/min [facility] Male GFR In terprentation [...] >32 mL/min Normal ID Date Data Source [id number] 07/07/2020 11:41:00 PM EDT [facility] Name Value Range Interpretation Code Description Data Lea rce(s) Supporting Document(s) DRUG SCREEN URINE [facility] URINE DRUG SCREEN Amphetamine [Presence] in Urine by Screen method NEGATIVE NORMAL: N EGATIVE [facility] BARBITURATES NEGATIVE NORMAL: NEGATIVE [facility] BENZO NEGATIVE NORMAL: NEGATIVE [facility] COCAINE NEGATIVE NORMAL: NEGATIVE [facility] Tetrahydrocannabinol [Presence] in Urine NEGATIVE NORMAL: NEGATIVE [facility] OPIATES NEGATIVE NORMAL: NEGATIVE [facility] Phencyclidine [Presence] in Urine by Screen method NEGATIVE NOR MAL: NEGATIVE [facility] \\BLDo\\URINE DRUG SCR EEN INTERPRETATION\\BLDx\\ THE CUTOFFF LEVELS FOR DETECTION ARE FOLLOWS: AMPHETAMINES 1000 ng/ml BARBITUARATES 200 ng/ml BENZODIAZEPINES 100 ng/ml THC 50 ng/ml PHENCYCLIDINE 25 ng/ml OPIATES 300 ng/ml COCAINE 300 ng/ml ALL POSITIVES ARE CONSIDERED PRESUMPTIVE POSITIVE CONFIRMATION WILL BE PERFORMED AT PHYSICIAN REQUEST. ID Date Data Source [id number] 07/07/2020 11:36:00 PM EDT [facility] Name Value Range Interpretation Code Description Data Lea rce(s) Supporting Document(s) [facility] S[facility] Clean Catch [facility] COLOR yellow NORMAL: Yellow [facility] CLARITY clear NORMAL: Clear [facility] Specific gravity of Urine by Test strip 1.010 1.001 - 1.030 [facility] pH 6.5 5 - 9 [facility] al Glucose [Mass/volume] in Urine by Test strip NORM NORMAL: Negat abbe [facility] Bilirubin.total [Presence] in Urine by Test strip NEG NORMAL: Negative [facility] Ketones [Presence] in Urine by Test strip NEG NORMAL: Negative [facility] Protein [Mass/volume] in Urine by Test strip NEG NORMAL: Negat abbe [facility] Nitrite [Presence] in Urine by Test strip NEG NORMAL: Negative [facility] BLOOD NEG NORMAL: Negative [facility] Leukocyte esterase [Presence] in Urine by Test strip 500 RICH L: Negative A [facility] Urobilinogen [Mass/volume] in Urine by Test strip NOR less azul n 1.0 mg/dL [facility] MICROSCOPIC See Below [facility] ital WBC 5 - 7 NORMAL: NONE SEEN [facility] Erythrocytes [#/volume] in Urine by Test strip 0 - 1 NORMAL: NON E SEEN [facility] EPITHELIAL FEW NORMAL: NONE SEEN [facility] Bacteria [Presence] in Urine sediment by Light microscopy Tr navi NORMAL: NONE SEEN [facility] ID Date Data Source [id number] 07/07/2020 11:37:00 PM EDT [facility] Name Value Range Interpretation Code Description Data Lea rce(s) Supporting Document(s) Acetaminophen [Presence] in Urine <5.0 UG/ML 0.0 - 30.0 [facility] ID Date Data Source [id number] 07/07/2020 11:29:00 PM EDT [facility] Name Value Range Interpretation Code Description Data Lea rce(s) Supporting Document(s) HCG URINE QUAL NEGATIVE NORMAL: NEGATIVE [facility] HCG URINE QL REENTER NEGATIVE NORMAL: NEGATIVE [facility] { KIT LOT # [id number] ){ KIT EXP DATE 066457 ){ PROCEDURAL CONTROL VALID ) ID Date Data Source [id number] 07/07/2020 11:26:00 PM EDT [facility] Name Value Range Interpretation Code Description Data Lea rce(s) Supporting Document(s) CBC W/AUTOMATED DIFF [facility] COMPLETE BLOOD COUNT Leukocytes [#/volume] in Blood by Automated count 9.0 10^3/uL 4.2 - 1 1.0 [facility] Erythrocytes [#/volume] in Blood by Automated count 4.66 10^6/uL 4. 20 - 5.40 [facility] Hemoglobin [Mass/volume] in Blood 14.7 g/dL 12.0 - 16.0 [facility] Hematocrit [Volume Fraction] of Blood by Automated count 41.7 % 3 7.0 - 47.0 [facility] Erythrocyte mean corpuscular volume [Entitic volume] by Auto mated count 89.5 fL 81.0 - 101 [facility] Erythrocyte mean corpuscular hemoglobin [Entitic mass] by Automated count 31.5 pg 27.0 - 34.0 [facility] Erythrocyte mean corpuscular hemoglobin concentration [Mass/volume] by Automated count 35.3 g/dL 31.0 - 36.0 [facility] Erythrocyte distribution width [Ratio] by Automated count 12.5 % 11.5 - 14.5 [facility] Platelets [#/volume] in Blood by Automated count 206 10^3/uL 150 - 45 0 [facility] Platelet mean volume [Entitic volume] in Blood by Automated count 10.9 fL 7.4 - 10.4 H [facility] Neutrophils/100 leukocytes in Blood by Automated count 42.6 % 37. 0 - 80.0 [facility] Lymphocytes/100 leukocytes in Blood by Manual count 42.4 % 25.0 - 40.0 H [facility] Monocytes/100 leukocytes in Blood by Automated count 9.0 % 3.0 - 8.0 H [facility] Eosinophils/100 leukocytes in Blood by Automated count 4.8 % 0.0 - 7.0 [facility] Basophils/100 leukocytes in Blood by Automated count 0.6 % 0.0 - 2.5 [facility] %IG 0.6 % 0.0 - 0.0 H [facility] al %NRBC 0.0 % 0.0 - 0.0 [facility] al Neutrophils [#/volume] in Blood by Automated count 3.87 10^3/uL 2.00 - 6.90 [facility] Lymphocytes [#/volume] in Blood by Automated count 3.83 10^3/uL 0.60 - 3.40 H [facility] Monocytes [#/volume] in Blood by Automated count 0.81 10^3/uL 0.00 - 0.90 [facility] Eosinophils [#/volume] in Blood by Automated count 0.43 10^3/uL 0.00 - 0.70 [facility] Basophils [#/volume] in Blood by Automated count 0.05 10^3/uL 0.00 - 0.20 [facility] #IG 0.05 10^3/uL 0.00 - 0.10 [facility] #NRBC 0.00 10^3/uL 0.00 - 0.00 [facility] MANUAL DIFF NOT INDICATED [facility] RBC MORPH NOT INDICATED [facility] ID Date Data Source [id number] 06/27/2020 01:19:00 AM EDT [place] [address] Medication Reconciliation Report [facility] Emergency Department [address] [place] [address] Phone #: ext- [phone] 06/27/2020 01:19 Patient: [...] rce(s) Supporting Document(s) ID Date Data Source [id number] 06/27/2020 01:19:00 AM EDT [place] [address] Medication Administration Record [facility] Emergency Department [address] [place] [address] Phone #: ext- [phone] 06/27/2020 01:19 Patient: EDGARDO MANZANO Sex: F : 2000 Age: 20yWeight: 71.2 kgHeight/Length: 64 inBMI: 27ALLERGIES: No Known Drug AllergyDate/Time Medication Administered Medication Ordered Name Value Range Interpretation Code Description Data Lea rce(s) Supporting Document(s) ID Date Data Source [id number] 06/27/2020 01:19:00 AM EDT [facility] 1 General Instructions [facility] Emergency Department [address] [place] [address] Phone #: ext- [phone] 06/27/2020 01:19 Patient: [...] CLINIC Respective Team [place], , , [id number] [facility] [place], , [place], [address] Follow up in two days. Call for [...] good care can greatly 2 General Instructions [facility] Emergency Department [address] [place] [address] Phone #: ext- [phone] 06/27/2020 01:19 Patient: [...] providers about all of the prescription and zrnn-atz-ivfbnbq medicines, and supplements you take. Certain supplements [...] to see if it can help. The [employer] operates a toll-free [employer] information line at: [phone] (Voice); or 530-325-6216 (TTY). It can help you locate a local office.Follow-up careFollow up with your healthcare provider or therapist as advised. They can help you to find ways toimprove your life.Call [phone] if any of these happen: You have suicidal thoughts, a plan, and the means to harm yourself, or serious thoughts of hurting someone else 3 General Instructions [facility] Emergency Department [address] [place] [address] Phone #: ext- [phone] 06/27/2020 01:19 Patient: EDGARDO MANZANO Sex: F [...] another Being unable to care for yourself [id number] [employer] [place] [address]. All rights reserved. This information is not intended as asubstitute for professional medical care. Always follow your healthcare professional's instructions. You have been given the following additional information: Bipolar Disorder(Electronically signed by Elliot Elise 06/27/2020 03:45) Name Value Range Interpretation Code Description Data Lea rce(s) Supporting Document(s) ID Date Data Source [id number] 06/27/2020 01:19:00 AM EDT [facility] 1 Clinical Report - Nurses [facility] Emergency Department [address] [place] [address] Phone #: ext- [phone] 06/27/2020 01:19 Patient: [...] to arrival. She describes feelings of depression.Treatment CLINICAL ASSOCIATE:None. --01:40 06/27/20 Lisa Lee R.N.01:33 06/27/20. BP: [...] The patient 2 Clinical Report - Nurses [facility] Emergency Department [address] [place] [address] Phone #: ext- [phone] 06/27/2020 01:19 [id number] Sex[facility] F : 2000 Age: 20y reports [...] Borderline personality disorder. --02:36 06/27/20 Elliot Elise.PHYSICAL BIDADBODTN76:33 06/27/20. Ambulatory to room. Patient gowned.GENERAL / [...] 15 minutes. 3 Clinical Report - Nurses [facility] Emergency Department [address] [place] [address] Phone #: ext- [phone] 06/27/2020 01:19 Patient: [...] Patient verbalized understanding. Written instructions provided in [place]. The patient was discharged by the physician. She was discharged home and accompanied by city detective. She left ambulatory and via private vehicle. Merchandise Team Manager driving. --03:53 06/27/20 Lisa Lee R.N. 03:50 06/27/20. BP: deferred. HR: deferred. RR: deferred. O2 saturation: deferred. Temp: deferred. Pain level now deferred. --03:53 06/27/20 Lisa Lee R.N.Locked/Released at 06/27/2020 04:25 by Lisa Lee R.N. Name Value Range Interpretation Code Description Data Lea rce(s) Supporting Document(s) ID Date Data Source [id number] 06/27/2020 01:19:00 AM EDT [facility] 1 Clinical Report - Physicians/Mid Levels [facility] Emergency Department [address] [place] [address] Phone #: ext- [phone] 06/27/2020 01:19 [facility]: [id number] Sex: Rashard : 2000 Age: 20y Time [...] Allergy. 2 Clinical Report - Physicians/Mid Levels [facility] Emergency Department [address] [place] [address] Phone #: ext- [phone] 06/27/2020 01:19 Patient: [...] arise. 3 Clinical Report - Physicians/Mid Levels [facility] Emergency Department [address] [place] [address] Phone #: ext- [phone] 06/27/2020 01:19 Patient: EDGARDO MANZANO Sex: F : 2000 Age: 20y Understanding of the discharge instructions verbalized by patient. Follow- up with: [facility] Respective Team Cheryl [place], , , [address] [facility] [place], , [place], [address] Follow up in two days. Call for an appointment.(Electronically signed by Elliot Elise 06/27/2020 03:45) Name Value Range Interpretation Code Description Data Lea rce(s) Supporting Document(s) ID Date Data Source [id number] 06/20/2020 09:40:00 AM EDT [facility] Name Value Range Interpretation Code Description Data Lea rce(s) Supporting Document(s) SARS coronavirus 2 RNA Not Detected [facility] This lab was ordered by [facility] and reported by [facility]. ID Date Data Source [id number] 05/23/2020 07:02:00 PM EDT [facility] 1 Medication Reconciliation Report [facility] Emergency Department [address] [place] [address] Phone #: ext- [phone] 05/23/2020 18:53 Patient: [...] rce(s) Supporting Document(s) ID Date Data Source [id number] 05/23/2020 07:02:00 PM EDT [facility] 1 Medication Administration Record [facility] Emergency Department [address] [place] [address] Phone #: ext- [phone] 05/23/2020 18:53 Patient: EDGARDO MANZANO Sex: F : 2000 Age: 20yWeight: 71.2 kgHeight/Length: 64 inBMI: 27ALLERGIES: NoneDate/Time Medication Administered Medication Ordered Name Value Range Interpretation Code Description Data [facility](s) Supporting Document(s) ID Date Data Source [id number] 05/23/2020 07:02:00 PM EDT [facility] 1 Clinical Report - Nurses [facility] Emergency Department [address] [place] [address] Phone #: ext [phone] 05/23/2020 18:53 Patient: EDGARDO MANZANO Sex: F : 2000 Age: 20yTRIAGEArrived by private vehicle. Historian: patient. Unaccompanied. ( pt states that she is anxious but doesnot appear to be at this time).Acuity: LEVEL 5.Chief Complaint: ANXIETY and (anxiety).Alert. No acute distress.Onset: today. The patient has had anxiety.Treatment CLINICAL ASSOCIATE:None.SEPSIS SCREEN: SIRS SCREEN NEGATIVE. SEPSIS SCREEN NEGATIVE. [...] MRSA. Staff 2 Clinical Report - Nurses [facility] Emergency Department [address] [place] [address] Phone #: ext- [phone] 05/23/2020 18:53 Patient: EDGARDO MANZANO Sex: F [...] on. Patient ready for evaluation. --19: Eloise Bolaons R.N.DISPOSITION / DISCHARGE late entry - 19:05/23/20. [...] Christian R.N. 3 Clinical Report - Nurses [facility] Emergency Department [address] [place] [address] Phone #: ext- [phone] 05/23/2020 18:53 Patient: EDGARDO MANZANO Sex: F : 2000 Age: 20yLocked/Released at 05/23/2020 19:12 by Hanane Christian R.N. Name Value Range Interpretation Code Description Data Lea rce(s) Supporting Document(s) ID Date Data Source [id number] 05/12/2020 02:24:00 AM EST [facility] 1 Medication Reconciliation Report [facility] Emergency Department [address] [place] [address] Phone #: ext- [phone] 05/12/2020 02:23 Patient: [...] e(s) Supporting Document(s) ID Date Data Source [id number] 05/12/2020 02:24:00 AM [facility] 1 Medication Administration Record [facility] Emergency Department [address] [place] [address] Phone #: ext- [phone] 05/12/2020 02:23 Patient: EDGARDO MANZANO Sex: F : 2000 Age: 20yWeight: 63.5 kgHeight/Length: 64 inBMI: 24ALLERGIES: No Known Drug AllergyDate/Time Medication Administered Medication Ordered Name Value Range Interpretation Code Description Data [facility](s) Supporting Document(s) ID Date Data Source [id number] 05/12/2020 02:24:00 AM [facility] 1 General Instructions [facility] Emergency Department [address] [place] [address] Phone #: ext- [phone] 05/12/2020 02:23 Patient: EDGARDO MANZANO Sex: F [...] Feeling depressed or withdrawn 2 General Instructions [facility] Emergency Department [address] [place] [address] Phone #: ext- [phone] 05/12/2020 02 :23 [id number] Sex: F : 2000 Age: 20y Loss [...] providers about all of the prescription and kvlt-ffz-zbhvroe medicines, vitamins, and supplements you take. Certain [...] with your healthcare provider, or as advised.Call [phone] if you: Have suicidal thoughts, a suicide plan, and the means to carry out the plan; or serious 3 General Instructions [facility] Emergency Department [address] [place] [address] Phone #: ext- [phone] 05/12/2020 02:23 Patient: [...] and ask you to seek help [employer]. [address] [place] [address], [place] [address]. All rights reserved. This information is not intended as asubstitute for professional medical care. Always follow your healthcare professional's instructions. You have been given the following additional information: Depression(Electronically signed by Elliot Elise 05/12/2020 03:26) Name Value Range Interpretation Code Description Data Lea rce(s) Supporting Document(s) ID Date Data Source [id number] 05/12/2020 02:24:00 AM EST [facility] 1 Clinical Report - Nurses [facility] Emergency Department [address] [place] [address] Phone #: ext- [phone] 05/12/2020 02:23 Patient: [...] SORE THROAT.Alert. No acute distress.Onset. (4 weeks).Treatment CLINICAL ASSOCIATE:None.SEPSIS SCREEN: SIRS SCREEN NEGATIVE. SEPSIS SCREEN NEGATIVE. [...] in your 2 Clinical Report - Nurses [facility] Emergency Department [address] [place] [address] Phone #: ext- [phone] 05/12/2020 02:23 Patient: [...] Patient verbalized understanding. Written instructions provided in [place]. No medication instructions or treatment instructions. The [...] on room 3 Clinical Report - Nurses [facility] Emergency Department [address] [place] [address] Phone #: ext- [phone] 05/12/2020 02:23 Patient: EDGARDO MANZANO Sex: F : 2000 Age: 20y air. Temp: 97.8 F (oral). Pain level now: 0. --03:32 05/12/20 King Gonsalez.Locked/Released at 05/12/2020 03:32 by King Gonsalez Name Value Range Interpretation Code Description Data Lea rce(s) Supporting Document(s) ID Date Data Source [id number] 05/12/2020 02:24:00 AM EST [facility] 1 Clinical Report - Physicians/Mid Levels [facility] Emergency Department [address] [place] [address] Phone #: ext- [phone] 05/12/2020 02:23 Patient: [...] was admitted one time last year in [place] for depression. Patient feels alone sometimes and gets frustrated. Patient was on Aderall for ADD in high school. Patient already seen at [facility] and is connected to therapist and psychiatrist. [...] stay. 2 Clinical Report - Physicians/Mid Levels [facility] Emergency Department [address] [place] [address] Phone #: ext- [phone] 05/12/2020 02:23 ------ [...] arise. 3 Clinical Report - Physicians/Mid Levels [facility] Emergency Department [address] [place] [address] Phone #: ext- [phone] 05/12/2020 02:23 Patient: EDGARDO MANZANO Sex: F : 2000 Age: 20y Understanding of the discharge instructions verbalized. Follow-up with: Follow up in two days if not well.(Electronically signed by Elliot Elise 05/12/2020 03:26) Name Value Range Interpretation Code Description Data Lea rce(s) Supporting Document(s) Procedure Social History No Information
[2021-01-05] MEDS ORDERED: ZOLO100T PO (18:49)
[2021-01-05] MEDS ORDERED: TRAZ-252 PO (18:49)
[2021-01-05] MEDS ORDERED: PRAZ1CAP PO (18:49)
[2021-01-05] MEDS ORDERED: HOME MED LIST COMPLETE! XX SCH (18:50)
[2021-01-05] MEDS ORDERED: traZODone 50 MG TAB PO SCH (21:00)
[2021-01-05] MEDS ORDERED: SERTRALINE 100 MG TAB PO ONE (21:00)
[2021-01-05] MEDS ORDERED: SERTRALINE 100 MG TAB PO SCH (21:00)
[2021-01-05] MEDS ORDERED: hydrOXYzine 50 MG TAB PO SCH (21:00)
[2021-01-05] MEDS ORDERED: PRAZOSIN 1 MG CAP PO SCH (21:00)
[2021-01-05] MEDS: hydrOXYzine 25 MG TAB PO PRN (21:11)
[2021-01-05 21:37] VITALS: BP 139/79
[2021-01-05] MEDS: traZODone 50 MG TAB PO PRN (21:55)
[2021-01-06] MEDS: PRAZOSIN 1 MG CAP PO SCH ×2 (01:08→20:07)
[2021-01-06 06:55] VITALS: BP 110/60
[2021-01-06] MEDS: LIDOCAINE 5% (LIDODERM) PATCH TD SCH (09:00)
[2021-01-06] MEDS ORDERED: CETIRIZINE (ZyrTEC) 10 MG TAB PO ONE (09:00)
[2021-01-06] MEDS ORDERED: NAPROXEN 250 MG TAB PO PRN (16:05)
--- NOTE | 2021-01-06 16:30 | HPEPDOC ---
[facility] Medical History & Physical Date of Admission Jan 05, 2021 Date of Service: Jan 06, 2021 History and Physical CHIEF COMPLAINT: Medical health screening HISTORY OF PRESENT ILLNESS: Ms. Owens is a 20 year old female in the inpatient mental health unit for depression and suicidal ideation. Please see mental health history and physical for more information about patient's psychiatric hospitalization. Hospitalist service consulted for medical health screening. Patient tells me she has chronic upper back pain for about 2 months. Denies any trauma or inciting cause. It randomly started. It is located on the spinal process between her shoulder blades. Pain rates between 5/10 to 8/10. Pain is worse with stretching her back. Better when resting. Pain medication dose help. Denies any paresthesias in her arms or legs. Otherwise, she does vapes and has associated coughing with vaping. She tells me she still feels depressed. PAST MEDICAL HISTORY: 1. ADD 2. Major depressive disorder 3. Borderline personality disorder PAST SURGICAL HISTORY: 1. Elective SOCIAL HISTORY: Tobacco use: Vapes ETOH: Denies Illicit drug use: Had used marijuana in the past. Have not had a chance to use recently due to recent psychiatric hospitalizations FAMILY HISTORY: Father: Schizophrenia Mother: DM type 1 ALLERGIES: Please see below. REVIEW OF SYSTEMS: CONSTITUTIONAL: Denies any fever or chills. ENT: Denies sore throat. RESPIRATORY: Denies shortness of breath. Reports occasional cough. CARDIOVASCULAR: Denies chest pain. GASTROINTESTINAL: Denies abdominal pain. Denies diarrhea. GENITOURINARY: Denies dysuria. CUTANEOUS: Denies rashes. MUSCULOSKELETAL: Denies muscle weakness. NEUROLOGICAL: Denies neuropathy. PSYCHOLOGICAL: Reports depression. HOME MEDICATIONS: Please see below. PHYSICAL EXAMINATION: VITAL SIGNS: Temperature 98, pulse 68, respiratory rate 16, blood pressure 110/60, pulse oximetry 100% on room air. GENERAL: Comfortable, in no apparent distress. HEENT: Head normocephalic/atraumatic, EOMI, sclera clear. NECK: Supple RESPIRATORY: Lungs clear to auscultation bilaterally, no rales, wheeze or rhonchi. CARDIOVASCULAR: Regular rate and rhythm. ABDOMEN: Soft, nontender, no guarding or rebound tenderness. Normal bowel sounds. MUSCLE SKELETAL: Muscle strength 5/5 in all extremities. NEUROLOGICAL: CN 3-12 grossly intact, no focal deficits noted. PSYCHOLOGICAL: Normal mood and affect LABORATORY DATA: See below. IMAGING: None MICROBIOLOGY: Please see below. ASSESSMENT and PLAN: 1. Depression and suicidal ideation. -Being managed in the inpatient mental health unit 2. Upper back pain -Continue with as needed acetaminophen -Added lidocaine patch -Added as needed naproxen Thank you for consulting us. We will sign off at this time. If there is any further questions or concerns, please do not hesitate to reconsult us. Vital Signs Vital Signs Date Time Temp Pulse Resp B/P (MAP) Pulse Ox O2 Delivery O2 Flow Rate FiO2 01/06/21 06:55 98.0 68 16 110/60 (77) 100 Room Air Laboratory Data Labs 24H Laboratory Tests 2 01/05/21 17:20: Coronavirus (COVID-19)(PCR) NEGATIVE, Influenza Type A (RT-PCR) NEGATIVE, Influenza Type B (RT-PCR) NEGATIVE, Respiratory Syncytial Virus (PCR) NEGATIVE Home Medications Scheduled Cetirizine HCl (Cetirizine HCl) 10 Mg Tablet, 10 MG PO DAILY Guaifenesin (Mucinex) 600 Mg Tab.er.12h, 600 MG PO BID Prazosin Hcl (Prazosin HCl) 1 Mg Capsule, 2 MG PO QHS Sertraline Hcl (Zoloft) 100 Mg Tablet, 100 MG PO QHS Scheduled PRN Fluticasone Propionate (Flonase Allergy Relief) 9.9 Ml [place].susp, 1 SPRAY NA BID PRN for NASAL CONGESTION Hydroxyzine HCl (Hydroxyzine HCl) 50 Mg Tablet, 50 MG PO QHS PRN for INSOMNIA Trazodone HCl (Trazodone HCl) 50 Mg Tablet, 50 MG PO QHS PRN for SLEEP Allergies Coded Allergies: No Known Drug Allergies (Verified Allergy, Unknown, 07/08/20) A-FIB/CHADSVASC A-FIB History Current/History of A-Fib/PAF?: No BUNNY MANCIA DO Jan 06, 2021 16:30
[2021-01-06 18:20] VITALS: BP 128/77
[2021-01-06] MEDS: hydrOXYzine 25 MG TAB PO PRN (20:08)
[2021-01-06] MEDS: traZODone 50 MG TAB PO PRN (20:11)
[2021-01-06] MEDS: **NOTE PATIENT COMMENT** MISC XX SCH (20:15)
[2021-01-07 06:30] VITALS: BP 112/56
[2021-01-07] MEDS: LIDOCAINE 5% (LIDODERM) PATCH TD SCH ×2 (09:00→16:21)
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
--- NOTE | 2021-01-07 16:18 | MHIPNPDOC ---
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 The patient refused to see me at all today, but I had talked to the patient briefly yesterday through TelePsychiatry while she was in the Emergency Room and I obtained some information from her. She had [facility] to bring her to the hospital stating that she did not feel safe. She complained that she feels very depressed, hopeless and helpless and with fleeting suicidal thoughts. She voiced of either overdosing on pills or jumping over or from a high structure. The patient also admitted that a new stressor occurred since she was discharge home which is that she was served now with an Article 15 although she tells me that she is already pending discharge from the that she has been told despite the Article 15 she is still getting to get an Honorable Discharge. As I said; however, today she refused to talk to me and so the rest of the information I have is from prior charts. It appears that she has had before this admission 4 consecutive admissions. She was last admitted from 12/26/2020 until 01/04/2021 and she was discharged with a diagnosis of major depression disorder recurrent mild, attention deficit hyperactivity disorder per history and borderline personality disorder. She was discharged on prazosin 2 mg at bedtime, hydroxyzine 50 mg at bedtime, Zoloft 100 mg once daily and trazodone 50 mg at bedtime p.r.n. insomnia. Of note the patient would often have times during prior admissions where she would refuse to talk to the provider. VITAL SIGNS: See below. NEW TEST RESULTS: NONE CURRENT MEDICATIONS: See below. 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 Reports suicidal ideations,no homicidal ideation, but no planning or intent. Abstract reasoning, and computation: fair Description of associations: denies, none observed Description of abnormal or psychotic thoughts: denies, none observed. Judgment: fair Insight: fair Orientation: alert and oriented to person, place, time and situation Recent and remote memory: intact Attention span and concentration: good Language: expansive Fund of knowledge: average Mood: Euthymic Mood Affect: reactive DIAGNOSES: Major depression disorder recurrent. 2. Attention deficit hyperactivity disorder by history. 3. Borderline personality disorder. ASSESSMENT: Patient refused to speak with provider. She was found in her room r efused to wake up when provider attempted to speak with her. 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 She had reported that she had cannabis in her room and they swept the room for illegal substances. Patient is being chaptered out of the , it appears that she does not want this, but his on her last 3 hospitalizations reported that she was not in compliance with procedures or regulations and often would discuss how she would purposefully not follow the rules. According to the planner/scheduler, patient's only concern is when she will be discharged as she is hoping for her admission to be a long stay MANAGEMENT PLAN: Continue all medications and supportive therapies. We will discharge patient as she is she stabilizes although I do believe the patient is exhibiting symptoms of malingering. As patient was not often observed is depressed or anxious on her last hospitalization as well as previous hospitalization. TIME SPENT: 15 minutes. Vital Signs Vital Signs Date Time Temp Pulse Resp B/P (MAP) Pulse Ox O2 Delivery O2 Flow Rate FiO2 01/07/21 06:30 98.6 67 16 112/56 (74) 100 Room Air Current Medications Current Medications Medications (Trade) Dose Ordered Sig/[place]anna Route PRN Reason Start Time Stop Time Status Last Admin Dose Admin Acetaminophen (Tylenol Tab) 650 mg Q6HP PRN PO HEADACHE or MILD DISCOMFORT 01/05/21 18:25 01/07/21 04:22 Al Hydrox/Mg Hydrox/Simethicone (Mylanta) 30 ml Q4HP PRN PO HEARTBURN/INDIGESTION 01/05/21 18:25 Home Med (Home Med List Complete!) ASDIRECTED XX 01/05/21 18:50 01/05/21 18:57 DC Hydroxyzine HCl (Atarax) 25 mg QHSP PRN PO INSOMNIA 01/05/21 18:30 01/06/21 20:08 Hydroxyzine HCl (Atarax) 50 mg QHS PO 01/05/21 21:00 Cancel Lidocaine (Lidoderm Patch) 1 patch DAILY TD 01/06/21 09:00 Magnesium Hydroxide (Milk Of Magnesia) 30 ml DAILYPRN PRN PO CONSTIPATION 01/05/21 18:25 Naproxen (Naprosyn) 500 mg BIDP PRN PO moderate pain 01/06/21 16:05 Non-Formulary Medication ( See Comment Field Below ) REMOVE LIDODERM PATCH DAILY@21 XX 01/06/21 21:00 Prazosin HCl (Minipress) 2 mg QHS PO 01/05/21 21:00 01/06/21 01:08 DC 01/05/21 21:11 Prazosin HCl (Minipress) 2 mg QHS PO 01/05/21 21:00 01/06/21 20:07 Sertraline HCl (Zoloft) 100 mg QHS PO 01/05/21 21:00 01/06/21 01:08 DC 01/05/21 21:10 Trazodone HCl (Desyrel) 50 mg QHS PO 01/05/21 21:00 Cancel Trazodone HCl (Desyrel) 50 mg QHSP PRN PO INSOMNIA 01/05/21 18:25 01/06/21 20:11 Allergies Coded Allergies: No Known Drug Allergies (Verified Allergy, Unknown, 07/08/20) RAMU KHAN NP Jan 07, 2021 16:18
[2021-01-07 17:01] VITALS: BP 124/67
[2021-01-07] MEDS: **NOTE PATIENT COMMENT** MISC XX SCH (20:03)
[2021-01-07 20:04] VITALS: BP 124/67
[2021-01-07] MEDS: traZODone 50 MG TAB PO PRN (20:04)
[2021-01-07] MEDS: PRAZOSIN 1 MG CAP PO SCH (20:04)
[2021-01-07] MEDS: hydrOXYzine 25 MG TAB PO PRN (20:04)
[2021-01-08 06:14] VITALS: BP 141/67
[2021-01-08] MEDS: LIDOCAINE 5% (LIDODERM) PATCH TD SCH (07:37)
--- NOTE | 2021-01-08 14:12 | MHDSPDOC ---
[facility] Discharge Summary Discharge Summary DATE OF ADMISSION: Jan 05, 2021 at 18:22 DATE OF DISCHARGE: Jan 08, 2021 at 12:57 DISCHARGE DIAGNOSES: 1. Major depression disorder recurrent. 2. Attention deficit hyperactivity disorder by history. 3. Borderline personality disorder. 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 She had called the [facility] to the [facility] to bring her to the hospital stating that she did not feel safe. She complained that she feels very depressed, hopeless and helpless and with fleeting suicidal thoughts. She voiced of either overdosing on pills or jumping over or from a high structure. The patient also admitted that a new stressor occurred since she was discharge home which is that she was served now with an Article 15 although she tells me that she is already pending discharge from the that she has been told despite the Article 15 she is still getting to get an Honorable Discharge. As I said; however, today she refused to talk to me and so the rest of the information I have is from prior charts. It appears that she has had before this admission 4 consecutive admissions. She was last admitted from 12/26/2020 until 01/04/2021 and she was discharged with a diagnosis of major depression disorder recurrent mild, attention deficit hyperactivity disorder per history and borde rline personality disorder. She was discharged on prazosin 2 mg at bedtime, hydroxyzine 50 mg at bedtime, Zoloft 100 mg once daily and trazodone 50 mg at bedtime p.r.n. insomnia. Of note the patient would often have times during prior admissions where she would refuse to talk to the provider. VITAL SIGNS: See below. CONSULTANTS INVOLVED: See Medical H + P by Hospitalist TREATMENT AND PROGRESS ON THE UNIT: Patient was admitted to the [facility] on a legal status was afforded the following treatment modalities: 1) Individual Therapy 2) Group Therapy 3) Medication Management 4) Milieu Therapy 5) Safe Environment HOSPITAL COURSE: Patient was admitted to [facility] on a legal status. Patient was admitted to the unit and initially was uncooperative with the on-call psychi atrist and would not see or engage in the interview . Patient was restarted on her home medications. Yesterday she again refused to meet with provide. Much of her dysphoria is due to her borderline personality traits and not necessarily depression as patient is often manipulating her emotions to continue her hospitalization. Today her mood, anxiety, and intrusive thoughts improved with treatment. Pts symptoms improved and she requested to be discharged. The pt. denied depression, anxiety, insomnia, SI/HI, hallucinations, delusions. Pt was discharged home with follow-up with [facility]. Pt felt safe for discharge. The patient is being honorably discharged from the [employer]. And upon her discharge last week her chain of command had her clean her room, patient was upset about this stating that she does not want to leave the [employer], the patient has at other times stated that she does not want to follow [employer] regulations and would happily leave the . DISCHARGE ASSESSMENT: In today's interview, patient is alert and oriented, pt.s dress is appropriate. Hygiene and grooming is well-kempt. Smiles on approach and is pleasant and engaged in the interview. Denies depression and anxiety. Denies suicidal and homicidal ideation, planning or intent. Denies and is not observed with swati, psychotic symptoms of delusions, bizarre thinking, o bsessions, paranoia, ruminations illogical thoughts, flight of ideas or having poor insight and judgement. Reinforced with patient need to abstain from alcohol and drugs. At discharge patient has normal mentation, declines further hospitalization on a voluntary status and meets criteria for discharge today. Discussed indications of medications, potential benefits and risks, alternatives (including no treatment) and questions were encouraged and answered. Patient encouraged to return to hospital if symptoms worsen or change and encouraged to call unit if he/she/they needs to speak to provider for questions regarding medications or care. 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 She had called the [facility] to the [facility] to bring her to the hospital stating that she did not feel safe. She complained that she feels very depressed, hopeless and helpless and with fleeting suicidal thoughts. Speech: Is fluid, conversant, normal rate, tone and volume Language skills are intact Thought processes including: linear and goal oriented Thought content: denies depression and anxiety. Denies suicidal/homicidal ideation, planning or intent. Abstract reasoning, and computation: fair Description of associations: denies, none observed Description of abnormal or psychotic thoughts: denies, none observed. Judgment: fair Insight: fair Orientation: alert and oriented to person, place, time and situation Recent and remote memory: intact Attention span and concentration: good Language: expansive Fund of knowledge: average Mood: Euthymic Mood Affect: reactive Suicide Risk Assessment: 1) Does the patient wish to be ? No 2) Since your admission, have you had any actual thought of killing yourself? No 3) Since your admission, have you been thinking about how you might do this? No 4) Since your admission, have you had these thoughts and had some intention of acting on them? No 5) Since your admission, have you started to work out or worked out the details of how to kill yourself? No 5A) Do you intent to carry out this plan? No and NA 6) Have you ever done anything, started anything, or prepared to do anything with any intent to ? No 6A) How long since your admission did you do any of these? NA MEDICATIONS ON DISCHARGE: See Medication Reconciliation PLAN/FOLLOWUP ARRANGEMENTS: Cheryl oseguera The amount of time spent in the coordination of care for this patient was approximately 25 minutes. ETOH/Disorder Med Rx ETOH/DRUG DISORDER RX: N/A Vital Signs/I&Os Vital Signs Date Time Temp Pulse Resp B/P (MAP) Pulse Ox O2 Delivery O2 Flow Rate FiO2 01/08/21 06:14 97.8 71 16 141/67 (91) 100 Room Air Medications Scheduled Cetirizine HCl (Cetirizine HCl) 10 Mg Tablet, 10 MG PO DAILY, (Reported) Guaifenesin (Mucinex) 600 Mg Tab.er.12h, 600 MG PO BID, (Reported) Prazosin Hcl (Prazosin HCl) 1 Mg Capsule, 2 MG PO QHS, (Reported) Sertraline Hcl (Zoloft) 100 Mg Tablet, 100 MG PO QHS, (Reported) Scheduled PRN Fluticasone Propionate (Flonase Allergy Relief) 9.9 Ml [place].susp, 1 SPRAY NA BID PRN for NASAL CONGESTION, (Reported) Hydroxyzine HCl (Hydroxyzine HCl) 50 Mg Tablet, 50 MG PO QHS PRN for INSOMNIA, (Reported) Trazodone HCl (Trazodone HCl) 50 Mg Tablet, 50 MG PO QHS PRN for SLEEP, (Reported) Allergies Coded Allergies: No Known Drug Allergies (Verified Allergy, Unknown, 07/08/20) RAMU KHAN NP Jan 08, 2021 14:12
== END 2021-01-08 12:57 | disposition home or self-care (01) | DRG 885 ==
LOC: M ED 05:26 → M ED INP 18:22 → M PSY 20:31
PROVIDERS: ADMIT Psychiatry & Neurology Psychiatry; ATTEND Psychiatry & Neurology Psychiatry
DX: F33.9 Major depressive disorder, recurrent, unspecified (principal); R45.851 Suicidal ideations; F90.9 Attention-deficit hyperactivity disorder, unspecified type; F60.3 Borderline personality disorder; F17.290 Nicotine dependence, other tobacco product, uncomplicated; M54.6 Pain in thoracic spine; Z20.822 Contact with and (suspected) exposure to COVID-19; Z56.89 Other problems related to employment; Z79.899 Other long term (current) drug therapy; Z91.52 Personal history of nonsuicidal self-harm; Z91.410 Personal history of adult physical and sexual abuse

== ENCOUNTER 2021-02-05 13:29 | Inpatient (IN) | payer MEDICAID, OTHER, SELFPAY ==
[~2021-02-05] VITALS: Ht 165.1 cm; Wt 70.9 kg
[~2021-02-05 13:29] MED LIST changes: +PRAZ1CAP PO
[2021-02-05 14:02] LABS: HEMATOCRIT 38.4 % (36.0-47.0); HEMOGLOBIN 13.5 g/dl (12.0-15.5); MEAN CORPUSCULAR HEMOGLOBIN 31.1 pg (27.0-33.0); MEAN CORPUSCULAR HGB CONC 35.2 g/dl (32.0-36.5); MEAN CORPUSCULAR VOLUME 88.5 fl (80.0-96.0); PLATELET COUNT, AUTOMATED 167 10^3/uL (150-450); RED BLOOD COUNT 4.34 10^6/uL (4.00-5.40); WHITE BLOOD COUNT 5.3 10^3/uL (4.0-10.0)
[2021-02-05 14:14] LABS: AMPHETAMINES LEVEL URINE NEGATIVE (NEGATIVE); BARBITURATES URINE NEGATIVE (NEGATIVE); BENZODIAZEPINES URINE NEGATIVE (NEGATIVE); CANNABINOIDS URINE NEGATIVE (NEGATIVE); COCAINE METABOLITE URINE NEGATIVE (NEGATIVE); METHADONE URINE NEGATIVE (NEGATIVE); OPIATES URINE NEGATIVE (NEGATIVE); PHENCYCLIDINE URINE NEGATIVE (NEGATIVE)
[2021-02-05 14:23] LABS: HCG, SERUM QUALITATIVE NEGATIVE (NEGATIVE)
[2021-02-05 14:34] LABS: ACETAMINOPHEN LEVEL < 2.0 UG/ML (10.0-30.0); ALBUMIN 3.9 GM/DL (3.2-5.2); ALT/SGPT 25 U/L (12-78); BILIRUBIN,DIRECT 0.2 MG/DL (0.0-0.2); BILIRUBIN,TOTAL 0.7 MG/DL (0.2-1.0); BLOOD UREA NITROGEN 8 MG/DL (7-18); CALCIUM LEVEL 8.6 MG/DL (8.5-10.1); CARBON DIOXIDE LEVEL 28 MEQ/L (21-32); CHLORIDE LEVEL 110 MEQ/L (98-107); CREATININE FOR GFR 0.89 MG/DL (0.55-1.30); ETHYL ALCOHOL (ETHANOL) 0.036 % (0.000-0.010); GLOMERULAR FILTRATION RATE > 60.0 (>60); GLUCOSE, FASTING 87 MG/DL (70-100); POTASSIUM SERUM 3.8 MEQ/L (3.5-5.1); SALICYLATE LEVEL < 1.7 MG/DL (5.0-30.0); SODIUM LEVEL 142 MEQ/L (136-145); TOTAL PROTEIN 7.6 GM/DL (6.4-8.2)
[2021-02-05 15:01] LABS: RSV AMPLIFICATION NEGATIVE (NEGATIVE)
--- NOTE | 2021-02-06 13:42 | ECGEPIP ---
[facility] - ED Test Date: 2021-02-05 Pat Name: EDGARDO MANZANO Department: Room: - Gender: Female Case Technician: ricardo : 2000 Requested By: JONES Floyd Order Number: [id number] Reading MD: Yohannes Cornell Measurements Intervals [place] Rate: 62 P: 36 VT: 130 QRS: 71 QRSD: 76 T: 19 QT: 400 QTc: 406 Interpretive Statements Normal sinus rhythm with sinus arrhythmia Comparison tracing not on file Electronically Signed on 02-06-2021 13:42:20 EST by Yohannes Cornell
[2021-02-06] MEDS ORDERED: ACETAMINOPHEN TAB 650MG DOSE (2X325MG) PO PRN (14:50)
[2021-02-06] MEDS ORDERED: MAALOX 30 ML SUSP *UDC PO PRN (14:50)
[2021-02-06] MEDS ORDERED: traZODone 50 MG TAB PO PRN (14:50)
[2021-02-06] MEDS ORDERED: NICOTINE 21MG/24HR 1 EA TRANSDERMAL TD PRN (14:50)
[2021-02-06] MEDS ORDERED: OLANZapine ORAL DISINTEGRATING TAB 5MG PO PRN (14:50)
[2021-02-06] MEDS ORDERED: MOM 30ML SUSPENSION UDC PO PRN (14:50)
[2021-02-06] MEDS ORDERED: TRAZ1TAB11 PO (17:12)
[2021-02-06] MEDS ORDERED: HOME MED LIST COMPLETE! XX SCH (17:15)
[2021-02-06 21:41] VITALS: BP 132/93
[2021-02-07] MEDS ORDERED: INFLUENZA QUADRIVALENT PF VACCINE 0.5ML SYRINGE IM ONE (09:00)
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
[2021-02-07 17:49] VITALS: BP 106/54
[2021-02-07] MEDS: traZODone 25MG PER 1/2 TABLET PO PRN (20:48)
[2021-02-08] VITALS (9 sets, daily range): BP systolic 119–146; BP diastolic 71–95
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
[2021-02-08] MEDS ORDERED: HALOPERIDOL DECANOATE 100 MG/ML VIAL (J1631) IM STA (12:14)
[2021-02-08] MEDS ORDERED: LORazepam 2 MG/ML VIAL IM STA (12:14)
[2021-02-08] MEDS ORDERED: diphenhydrAMINE 50MG/ML VIAL (J1200) IM STA (12:14)
[2021-02-08] MEDS ORDERED: HALOPERIDOL 5MG/ML VIAL (J1630 PER 1) IM STA (12:19)
[2021-02-08] MEDS ORDERED: HALOPERIDOL 5MG/ML VIAL (J1630 PER 1) As Ordered ONE (12:21)
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
[2021-02-09 06:11] VITALS: BP 107/55
[2021-02-09 19:10] VITALS: BP 140/72
[2021-02-09] MEDS: traZODone 25MG PER 1/2 TABLET PO PRN (20:17)
[2021-02-10 06:27] VITALS: BP 117/75
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
[2021-02-10] MEDS ORDERED: traZODone 50 MG TAB PO PRN (20:05)
[2021-02-11 06:48] VITALS: BP 128/84
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
== END 2021-02-11 12:20 | disposition home or self-care (01) | DRG 755 ==
LOC: M ED 13:29 → M ED INP 02-06 14:50 → M PSY 02-06 21:33
PROVIDERS: ADMIT Psychiatry & Neurology Psychiatry; ATTEND Psychiatry & Neurology Psychiatry
DX: F43.20 Adjustment disorder, unspecified (principal); F33.0 Major depressive disorder, recurrent, mild; F90.9 Attention-deficit hyperactivity disorder, unspecified type; F60.3 Borderline personality disorder; Z20.822 Contact with and (suspected) exposure to COVID-19; R45.851 Suicidal ideations; Z59.00 Homelessness unspecified; Z91.52 Personal history of nonsuicidal self-harm; Z91.14 Patient's other noncompliance with medication regimen; Z91.19 Patient's noncompliance with other medical treatment and regimen; Z79.899 Other long term (current) drug therapy; Z63.0 Problems in relationship with spouse or partner; Z56.0 Unemployment, unspecified